=== PATIENT | female | born 1935 | race Caucasian/White ===

== ENCOUNTER 2020-12-21 11:37 | Emergency (ER) | payer MEDICARE, OTHER ==
--- NOTE | 2020-12-21 13:26 | EDM.PDOC ---
ED HPI GENERAL MEDICAL PROBLEM - General Chief Complaint: General Stated Complaint: FALLS, WEAKNESS, TAILBONE PAIN Time Seen by Provider: 12/21/20 11:45 Source of Information: Reports: Patient, Family History Limitations: Reports: No Limitations - History of Present Illness INITIAL COMMENTS - FREE TEXT/NARRATIVE: Pt with several falls over the past few days No LOC Recalls events Complains of pain in tailbone Did hit her head but no COLLAZO currently States her back and ribs hurt but are better now Duration: Day(s):, Intermittent Location: Reports: Pelvis Quality: Reports: Throbbing Buttock Pain Score (Numeric/FACES): 4 - Related Data Allergies Allergy/AdvReac Type Severity Reaction Status Date / Time No Known Allergies Allergy Verified 12/21/20 11:55 Home Meds: Home Meds Losartan Potassium 100 mg PO DAILY@12/21/20 [History] atenoloL [Atenolol] 50 mg PO DAILY@12/21/20 [History] Past Medical History HEENT History: Reports: Hard of Hearing, Impaired Vision, Macular Degeneration Cardiovascular History: Reports: Hypertension Gastrointestinal History: Reports: Chronic Constipation, Diverticulosis Genitourinary History: Reports: UTI, Recurrent Musculoskeletal History: Reports: Fracture, Osteoarthritis, Osteoporosis, Other (See Below) Other Musculoskeletal History: chronic knee pain, bilat wrist fx. Neurological History: Reports: Other (See Below) Other Neuro History: a non-headache migraine. Hematologic History: Reports: Other (See Below) Other Hematologic History: HYPONATREMIA - Past Surgical History HEENT Surgical History: Reports: Cataract Surgery GI Surgical History: Reports: Colostomy Female Surgical History: Reports: Hysterectomy, Other (See Below) Other Female Surgeries/Procedures: bladder repair surgery Social & Family History - Tobacco Use Tobacco Use Status *Q: Never Tobacco User Second Hand Smoke Exposure: No - Caffeine Use Caffeine Use: Reports: Coffee - Recreational Drug Use Recreational Drug Use: No ED ROS GENERAL - Review of Systems Review Of Systems: See Below Constitutional: Reports: Weakness HEENT: Reports: No Symptoms Respiratory: Reports: No Symptoms Cardiovascular: Reports: No Symptoms GI/Abdominal: Reports: No Symptoms Musculoskeletal: Reports: Other (Coccyx pain) Skin: Reports: No Symptoms Neurological: Reports: No Symptoms ED EXAM, GENERAL - Physical Exam Exam: See Below Exam Limited By: No Limitations General Appearance: Alert, WD/WN, Mild Distress Nose: Normal Inspection Throat/Mouth: Normal Oropharynx Head: Atraumatic Neck: Supple, Non-Tender Respiratory/Chest: Lungs Clear Cardiovascular: Regular Rate, Rhythm GI/Abdominal: Soft, Non-Tender Back Exam: Normal Inspection Extremities: Other (Coccyx tender with palpation Spine non-tender) Neurological: Alert, Oriented, No Motor/Sensory Deficits Psychiatric: Normal Affect, Normal Mood Course - Vital Signs Last Recorded V/S: Last Vital Signs Temp 98.7 F 12/21/20 11:38 Pulse 87 12/21/20 11:55 Resp 18 12/21/20 11:55 BP 158/81 H 12/21/20 11:55 Pulse Ox 94 L 12/21/20 11:55 - Orders/Labs/Meds Orders: Active Orders 24 hr Category Date Time Status Head wo Cont [CT] Stat Exams 12/21/20 12:07 Taken Pelvis 1V or 2V [CR] Stat Exams 12/21/20 12:03 Taken Labs: Laboratory Tests 12/21/20 12/21/20 12/21/20 Range/Units 12:17 12:17 12:23 WBC 9.9 (4.0-10.2) K/uL RBC 4.33 (3.77-5.09) M/uL Hgb 12.9 (11.7-15.5) g/dL Hct 38.2 (34.0-46.0) % MCV 88.2 (84.0-98.0) fL MCH 29.8 (28.2-33.3) pg MCHC 33.8 (31.7-36.0) g/dL RDW 13.9 (11.2-14.1) % Plt Count 211 (150-350) K/uL Neut % (Auto) 72.6 (45.0-80.0) % Lymph % (Auto) 17.8 (10.0-50.0) % [place] % (Auto) 9.2 (2.0-14.0) % Eos % (Auto) 0.3 (0.0-5.0) % Baso % (Auto) 0.1 (0.0-2.0) % Neut # (Auto) 7.21 H (1.40-7.00) K/uL Lymph # (Auto) 1.77 (0.50-3.50) K/uL [place] # (Auto) 0.91 (0.00-1.00) K/uL Eos # (Auto) 0.03 (0.00-0.50) K/uL Baso # (Auto) 0.01 (0.00-0.20) K/uL Sodium 136 (136-145) mmol/L Potassium 3.9 (3.5-5.1) mmol/L Chloride 101 (98-107) mmol/L Carbon Dioxide 24.2 (21.0-32.0) mmol/L BUN 18 (7-18) mg/dL Creatinine 0.97 (0.51-1.17) mg/dL Est Cr Clr Drug Dosing 29.90 mL/min Estimated GFR (MDRD) 54 mL/min Glucose 127 H (74-106) mg/dL Calcium 8.6 (8.5-10.1) mg/dL Total Bilirubin 1.3 H (0.2-1.0) mg/dL AST 21 (15-37) U/L ALT 29 (12-78) U/L Alkaline Phosphatase 99 (46-116) IU/L Total Protein 7.0 (6.4-8.2) g/dL Albumin 3.6 (3.4-5.0) g/dL Specimen Type Urinvoid Urine Color Judy Urine Appearance Slightly cloudy Urine pH 7.5 (5.0-9.0) Ur Specific [place] 1.025 (1.005-1.030) Urine Protein Trace H (NEGATIVE) mg/dL Urine Glucose (UA) Negative (NEGATIVE) mg/dL Urine Ketones Negative (NEGATIVE) mg/dL Urine Occult Blood Trace-intact H (NEGATIVE) Urine Nitrite Negative (NEGATIVE) Urine Bilirubin Negative (NEGATIVE) Urine Urobilinogen 0.2 (0.2-1.0) E.U./dL Ur Leukocyte Esterase Trace H (NEGATIVE) Urine RBC 0-5 /HPF Urine WBC 5-10 H /HPF Ur Epithelial Cells Many H /LPF Urine Bacteria Many H (NONE TO FEW) /HPF Urinalysis Comment - Re-Assessments/Exams Free Text/Narrative Re-Assessment/Exam: 12/21/20 13:24 CT per radiologist No acute fndings Xray: No obvious fracture Await report Departure - Departure Time of Disposition: 13:30 Disposition: Home, Self-Care 01 Clinical Impression: Coccyx pain - Discharge Information *PRESCRIPTION DRUG MONITORING PROGRAM REVIEWED*: Not Applicable *COPY OF PRESCRIPTION DRUG MONITORING REPORT IN PATIENT JHONY: Not Applicable Referrals: Sheila Mckeon NP [Primary Care Provider] - Additional Instructions: Cushion to sit on Rx Tramadol 50 mg every 6 hours for pain Follow up in clinic Sepsis Event Note (ED) - Evaluation Sepsis Screening Result: No Definite Risk - Focused Exam Vital Signs: Vital Signs Temp Pulse Resp BP Pulse Ox 12/21/20 11:55 87 18 158/81 H 94 L 12/21/20 11:40 88 16 181/89 H 94 L 12/21/20 11:38 98.7 F 88 18 181/95 H 96 - My Orders Last 24 Hours: My Active Orders 12/21/20 12:03 Pelvis 1V or 2V [CR] Stat 12/21/20 12:07 Head wo Cont [CT] Stat - Assessment/Plan Last 24 Hours: My Active Orders 12/21/20 12:03 Pelvis 1V or 2V [CR] Stat 12/21/20 12:07 Head wo Cont [CT] Stat
== END 2020-12-21 13:40 | disposition home or self-care (01) ==
LOC: LL.ED 11:37
DX: M53.3 Sacrococcygeal disorders, not elsewhere classified (principal); I10 Essential (primary) hypertension; Z79.899 Other long term (current) drug therapy; R53.1 Weakness
CPT/HCPCS: 36415; 70450; 72170; 80053; 81001; 85025; 99283; 99284-25

== ENCOUNTER 2021-06-09 18:35 | Inpatient (IN) | payer MEDICARE, OTHER ==
[2021-06-09] MEDS ORDERED: Sodium Chloride 0.9% 10 ML Syringe FLUSH PRN (18:36)
[2021-06-09 19:09] LABS: CHLORIDE,CL 102 mmol/L (98-107); SODIUM,NA 133 mmol/L (136-145)
[2021-06-09] MEDS ORDERED: Acetaminophen 325 MG Tab PO ONE (19:49)
--- NOTE | 2021-06-09 19:53 | EDM.PDOC ---
ED HPI GENERAL MEDICAL PROBLEM - General Chief Complaint: Neuro Symptoms/Deficits Stated Complaint: stroke code Time Seen by Provider: 06/09/21 18:36 Source of Information: Reports: Patient, EMS, Family History Limitations: Reports: No Limitations - History of Present Illness INITIAL COMMENTS - FREE TEXT/NARRATIVE: Patient brought to ER via EMS after falling for second time in 2 days at home. Found by daughter. Daughter says patient complaining of left sided chest pain and she called EMS. Patient has told daughter she has been dizzy at times the last few days and that the dizziness was different from her usual vertigo spells. Did have both ears cleaned out by ENT earlier this week. Patient complains of left lower anterior rib pain. Daughter says patient laying on left side of chest when daughter came to house after patient pushed her alert button after falling. Patient says she thought she hit her head during one of the two falls and earlier had headache. Denies other acute pain changes. No recent illness/fevers. Only medication change was starting Remeron about 30 days ago. EMS concerned about possible stroke due to patient's tongue deviating slightly t o right and left corner of mouth drooping. They also felt that patient has some asymmetrical limb weakness. Daughter did not notice any obvious changes at the home. No stroke history. No history of GA. Does have CHF. Lives alone at home. Has meals on wheels. Very limited due to sight loss from macular degeneration and hard of hearing. Is looking at moving into 's Home here in [place]. Normal UA this morning when it was rechecked after recent treatment for UTI - Related Data Allergies Allergy/AdvReac Type Severity Reaction Status Date / Time No Known Allergies Allergy Verified 12/21/20 11:55 Home Meds: Home Meds Losartan Potassium 100 mg PO DAILY@12 12/21/20 [History] atenoloL [Atenolol] 50 mg PO DAILY@12/21/20 [History] Mirtazapine [Remeron] 7.5 mg PO BEDTIME 06/09/21 [History] Sulfamethoxazole/Trimethoprim [Sulfamethoxazole-Tmp Ss Tablet] 1 tab PO BEDTIME 06/09/21 [History] Past Medical History HEENT History: Reports: Hard of Hearing, Impaired Vision, Macular Degeneration Cardiovascular History: Reports: Heart Failure, Hypertension Gastrointestinal History: Reports: Chronic Constipation, Diverticulosis Genitourinary History: Reports: UTI, Recurrent Musculoskeletal History: Reports: Fracture, Osteoarthritis, Osteoporosis, Other (See Below) Other Musculoskeletal History: chronic knee pain, bilat wrist fx. Neurological History: Reports: Other (See Below) Other Neuro History: a non-headache migraine. Hematologic History: Reports: Other (See Below) Other Hematologic History: HYPONATREMIA - Past Surgical History HEENT Surgical History: Reports: Cataract Surgery GI Surgical History: Reports: Colostomy Female Surgical History: Reports: Hysterectomy, Other (See Below) Other Female Surgeries/Procedures: bladder repair surgery Social & Family History - Caffeine Use Caffeine Use: Reports: Coffee ED ROS GENERAL - Review of Systems Review Of Systems: Comprehensive ROS is negative, except as noted in HPI. ED EXAM, GENERAL - Physical Exam Exam: See Below Exam Limited By: No Limitations General Appearance: Alert, WD/WN Eye Exam: Bilateral Eye: EOMI, PERRL, Other (no obvious nystagmus) Ears: Hearing Loss, Other (Small ear canals bilaterally/unremarkable. ) Nose: No: Nasal Deformity, Nasal Swelling, Nasal Drainage Throat/Mouth: Normal Voice, No Airway Compromise Head: Atraumatic, Normocephalic. No: Facial Swelling, Facial Tenderness Neck: Supple, Non-Tender, Full Range of Motion Respiratory/Chest: No Respiratory Distress, Crackles (at bases and mid right lung), Other (Tender with palpation lower left rib area. No crepitus/obvious fracture/bruising). No: Rhonchi, Wheezing, Stridor, Accessory Muscle Use Cardiovascular: Regular Rate, Rhythm, No Edema, No Murmur GI/Abdominal: Soft, Non-Tender, No Distention, Abnormal Bowel Sounds (diminished throughout) (Female) Exam: Deferred Rectal (Female) Exam: Deferred Back Exam: No: CVA Tenderness (L), CVA Tenderness (R), Muscle Spasm, Paraspinal Tenderness, Vertebral Tenderness Extremities: Normal Range of Motion (for age), Non-Tender, No Pedal Edema, Normal Capillary Refill Neurological: Alert, Oriented (except for the year), Normal Cognition, No Motor/Sensory Deficits, Other (Equal tone/strength bilateral limbs. Small droop left corner of mouth. ) Psychiatric: Normal Affect, Normal Mood Skin Exam: Warm, Dry, Intact, Normal Color #1 Interpretation EKG Date: 06/09/21 Time: 18:56 Rhythm: NSR Rate (Beats/Min): 71 [place]: Normal P-Wave: Present QRS: Normal ST-T: Normal QT: Normal Comparison: NA - No Prior EKG Course - Orders/Labs/Meds Orders: Active Orders 24 hr Category Date Time Status EKG Documentation Completion [RC] ASDIRECTED Care 06/09/21 18:38 Active Chest 1V Frontal [CR] Stat Exams 06/09/21 18:37 Taken Head wo Cont [CT] Stat Exams 06/09/21 18:38 Taken UA W/MICROSCOPIC [URIN] Stat Lab 06/09/21 18:36 Ordered Sodium Chloride 0.9% [Saline Flush] Med 06/09/21 18:36 Active 10 ml FLUSH ASDIRECTED PRN Saline Lock Insert [OM.PC] Stat Oth 06/09/21 18:37 Ordered Medication Orders Sodium Chloride (Sodium Chloride 0.9% 10 Ml Syringe) 10 ml FLUSH ASDIRECTED PRN PRN Reason: Keep Vein Open Labs: Laboratory Tests 06/09/21 06/09/21 06/09/21 Range/Units 18:35 18:50 18:50 WBC 11.4 H (4.0-10.2) K/uL RBC 4.86 (3.77-5.09) M/uL Hgb 14.7 D (11.7-15.5) g/dL Hct 42.9 (34.0-46.0) % MCV 88.3 (84.0-98.0) fL MCH 30.2 (28.2-33.3) pg MCHC 34.3 (31.7-36.0) g/dL RDW 13.8 (11.2-14.1) % Plt Count 249 (150-350) K/uL Neut % (Auto) 55.1 (45.0-80.0) % Lymph % (Auto) 37.1 (10.0-50.0) % [place] % (Auto) 6.0 (2.0-14.0) % Eos % (Auto) 1.5 (0.0-5.0) % Baso % (Auto) 0.3 (0.0-2.0) % Neut # (Auto) 6.29 (1.40-7.00) K/uL Lymph # (Auto) 4.24 H (0.50-3.50) K/uL [place] # (Auto) 0.69 (0.00-1.00) K/uL Eos # (Auto) 0.17 (0.00-0.50) K/uL Baso # (Auto) 0.04 (0.00-0.20) K/uL PT 9.8 (9.5-12.0) SEC INR 1.0 D-Dimer, Quantitative > 5000 H (0-400) ng/mL Sodium (136-145) mmol/L Potassium (3.5-5.1) mmol/L Chloride (98-107) mmol/L Carbon Dioxide (21.0-32.0) mmol/L Anion Gap (7-15) meq/L BUN (7-18) mg/dL Creatinine (0.51-1.17) mg/dL Est Cr Clr Drug Dosing Estimated GFR (MDRD) mL/min Glucose (70-99) mg/dL Lactic Acid (0.4-2.0) mmol/L Calcium (8.5-10.1) mg/dL Magnesium (1.8-2.4) mg/dL Total Bilirubin (0.2-1.0) mg/dL AST (15-37) U/L ALT (12-78) U/L Alkaline Phosphatase (46-116) IU/L Creatine Kinase (26-308) U/L Troponin I High Sens (<=51) ng/L NT-Pro-B Natriuret Pep (0-125) pg/mL Total Protein (6.4-8.2) g/dL Albumin (3.4-5.0) g/dL 06/09/21 06/09/21 06/09/21 Range/Units 18:50 18:50 18:50 WBC (4.0-10.2) K/uL RBC (3.77-5.09) M/uL Hgb (11.7-15.5) g/dL Hct (34.0-46.0) % MCV (84.0-98.0) fL MCH (28.2-33.3) pg MCHC (31.7-36.0) g/dL RDW (11.2-14.1) % Plt Count (150-350) K/uL Neut % (Auto) (45.0-80.0) % Lymph % (Auto) (10.0-50.0) % [place] % (Auto) (2.0-14.0) % Eos % (Auto) (0.0-5.0) % Baso % (Auto) (0.0-2.0) % Neut # (Auto) (1.40-7.00) K/uL Lymph # (Auto) (0.50-3.50) K/uL [place] # (Auto) (0.00-1.00) K/uL Eos # (Auto) (0.00-0.50) K/uL Baso # (Auto) (0.00-0.20) K/uL PT (9.5-12.0) SEC INR D-Dimer, Quantitative (0-400) ng/mL Sodium 133 L (136-145) mmol/L Potassium 4.7 (3.5-5.1) mmol/L Chloride 102 (98-107) mmol/L Carbon Dioxide 22.7 (21.0-32.0) mmol/L Anion Gap 13.0 (7-15) meq/L BUN 25 H (7-18) mg/dL Creatinine 1.40 H (0.51-1.17) mg/dL Est Cr Clr Drug Dosing TNP Estimated GFR (MDRD) 36 mL/min Glucose 114 H (70-99) mg/dL Lactic Acid 1.6 (0.4-2.0) mmol/L Calcium 8.8 (8.5-10.1) mg/dL Magnesium 2.2 (1.8-2.4) mg/dL Total Bilirubin 0.5 (0.2-1.0) mg/dL AST 25 (15-37) U/L ALT 29 (12-78) U/L Alkaline Phosphatase 107 (46-116) IU/L Creatine Kinase 85 (26-308) U/L Troponin I High Sens 7 (<=51) ng/L NT-Pro-B Natriuret Pep 234 H (0-125) pg/mL Total Protein 7.6 (6.4-8.2) g/dL Albumin 3.7 (3.4-5.0) g/dL Meds: Medications Generic Name Dose Route Start Last Admin Trade Name Freq PRN Reason Stop Dose Admin Sodium Chloride 10 ml 08/06/21 18:36 Sodium Chloride 0.9% 10 Ml Syringe FLUSH ASDIRECTED PRN Keep Vein Open - Re-Assessments/Exams Free Text/Narrative Re-Assessment/Exam: 06/09/21 20:[address] showed generalized degenerative changes/small vessel disease but no acute bleed/change. Chest xray showed what appeared to by CHF/fibrosis but no acute infiltrate. Multiple old fractures noted left upper ribs/patient and daughter say these are old. No tenderness when palpated in this area. Difficult to assess lower ribs for acute fracture due to positioning and osteopenia. Ddimer greater than 5000 Normal troponin. Minimal elevation proBNP. NA 133/patient has history hyponatremia. Cr 1.4 Stroke code downgraded after exam/interview with patient and daughter. NIH stroke scale normal but patient unable to do visual portion of test due to her very poor vision from macular degeneration. Only change at this time might be the small left sided droop corner of mouth but daughter is not convinced that is new. Daughter does not feel patient is exhibiting stroke symptoms. It seems main issue is dizziness over last few days and subsequent falls. Patient sat up and had sudden worsening of dizziness which led to vomiting. We discussed the DDimer elevation and relationship to possible PE. PE is a potential cause for dizziness. Patient and daughter did not want to be sent to [facility] for VQ scan. Plan at this time is to admit for further evaluation/workup. Departure - Departure Time of Disposition: 20:13 Disposition: Admitted As Inpatient 65 Clinical Impression: Dizziness, Repeated falls, Elevated d-dimer - Discharge Information *PRESCRIPTION DRUG MONITORING PROGRAM REVIEWED*: Not Applicable *COPY OF PRESCRIPTION DRUG MONITORING REPORT IN PATIENT JHONY: Not Applicable Referrals: PCP,Unobtain [Primary Care Provider] - - Problem List & Annotations (1) Dizziness SNOMED Code(s): 680860908, 668517223 Code(s): R42 - DIZZINESS AND GIDDINESS Status: Acute Priority: High Current Visit: Yes Annotation/Comment:: Patient says this is a new kind of dizziness and that it has been present for several days. Denies hitting head prior to developing dizziness. Did start Remeron 30 days ago which has dizziness as side effect. Had both ears irrigated and cleaned out by ENT earlier this week. This may be contributor to the dizzness. 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 No exudate/swelling suggestive of OE noted during exam. Also has possible new left sided mouth mild droop. CT unremarkable but cannot rule out small stroke that may be linked with the dizziness/falls. Consider MRI Saturday for more thorough evaluation. (2) Elevated d-dimer SNOMED Code(s): 000638165 Code(s): R79.89 - OTHER SPECIFIED ABNORMAL FINDINGS OF BLOOD CHEMISTRY Status: Acute Priority: High Current Visit: Yes Annotation/Comment:: Greater than 5000. Patient and daughter would like patient to stay here in [place] and see if we can get CT of chest performed tomorrow to assess for PE and also new rib fractures. Consider transfer to [place] if renal function worsens and need to consider VQ scan. Patient's respiratory rate/O2 sats stable. No complaint of SOB. (3) Repeated falls SNOMED Code(s): 117550016 Code(s): R29.6 - REPEATED FALLS Status: Acute Priority: High Current Visit: Yes Annotation/Comment:: Has history of previous falls. Has fallen yesterday and today due to dizziness and patient says the dizziness is a "new" kind of dizziness. (4) Renal insufficiency SNOMED Code(s): 576716024, 734372228 Code(s): N28.9 - DISORDER OF KIDNEY AND URETER, UNSPECIFIED Status: Acute Priority: Medium Current Visit: Yes Annotation/Comment:: Cr of 1.4 Will assess for improvement after IV fluids overnight as plan is to perform CT scan of chest for formal PE rule out tomorrow unless Cr/GFR worsen. (5) HTN (hypertension) SNOMED Code(s): 53344925 Code(s): I10 - ESSENTIAL (PRIMARY) HYPERTENSION Status: Chronic Priority: Medium Current Visit: Yes Annotation/Comment:: observe trends. Elevated in ER Qualifiers: Hypertension type: primary hypertension Qualified Code(s): I10 - Essential (primary) hypertension (6) Osteoporosis SNOMED Code(s): 25011898 Code(s): M81.0 - AGE-RELATED OSTEOPOROSIS W/O CURRENT PATHOLOGICAL FRACTURE Status: Chronic Priority: Medium Current Visit: Yes Annotation/Comment:: Hx previous rib fractures. Has some new tenderness left lower ribs. Closer look will be obtained tomorrow with planned CT scan of chest. Qualifiers: Osteoporosis type: unspecified Presence of current pathological fracture: unspecified Qualified Code(s): M81.0 - Age-related osteoporosis without current pathological fracture (7) Osteoarthritis SNOMED Code(s): 096666943 Code(s): M19.90 - UNSPECIFIED OSTEOARTHRITIS, UNSPECIFIED SITE Status: Chronic Priority: Low Current Visit: Yes Annotation/Comment:: Stable per history Qualifiers: Osteoarthritis location: unspecified site Osteoarthritis type: unspecified Qualified Code(s): M19.90 - Unspecified osteoarthritis, unspecified site (8) Recurrent UTI SNOMED Code(s): 059960640 Code(s): N39.0 - URINARY TRACT INFECTION, SITE NOT SPECIFIED Status: Acute Priority: Low Current Visit: Yes Annotation/Comment:: Is on daily Bactrim. Normal UA at clinic today. (9) Hyponatremia SNOMED Code(s): 66860857 Code(s): E87.1 - HYPO-OSMOLALITY AND HYPONATREMIA Status: Acute Priority: Low Current Visit: Yes Annotation/Comment:: Na 133 (10) Hard of hearing SNOMED Code(s): 69640391 Code(s): H91.90 - UNSPECIFIED HEARING LOSS, UNSPECIFIED EAR Status: Chronic Priority: Low Current Visit: No Annotation/Comment:: hearing aids Qualifiers: Hearing loss type: unspecified Laterality: bilateral Qualified Code(s): H91.93 - Unspecified hearing loss, bilateral (11) Macular degeneration SNOMED Code(s): 487753896 Code(s): H35.30 - UNSPECIFIED MACULAR DEGENERATION Status: Chronic Priority: Low Current Visit: Yes Annotation/Comment:: Has lost most of vision Qualifiers: Macular degeneration type: unspecified type Eye laterality: bilateral Qualified Code(s): H35.30 - Unspecified macular degeneration (12) CHF (congestive heart failure) SNOMED Code(s): 91760461 Code(s): I50.9 - HEART FAILURE, UNSPECIFIED Status: Chronic Priority: Low Current Visit: Yes Annotation/Comment:: Mild elevation of BNP. No evidence of acute fluid overload on exam. Qualifiers: Heart failure type: unspecified Heart failure chronicity: chronic Qualified Code(s): I50.9 - Heart failure, unspecified - Problem List Review Problem List Initiated/Reviewed/Updated: Yes - My Orders Last 24 Hours: My Active Orders 06/09/21 18:36 UA W/MICROSCOPIC [URIN] Stat Sodium Chloride 0.9% [Saline Flush] 10 ml FLUSH ASDIRECTED PRN 06/09/21 18:37 Chest 1V Frontal [CR] Stat Saline Lock Insert [OM.PC] Stat 06/09/21 18:38 EKG Documentation Completion [RC] ASDIRECTED Head wo Cont [CT] Stat - Assessment/Plan Admission H&P: Please use this note as an admission H&P Last 24 Hours: My Active Orders 06/09/21 18:36 UA W/MICROSCOPIC [URIN] Stat Sodium Chloride 0.9% [Saline Flush] 10 ml FLUSH ASDIRECTED PRN 06/09/21 18:37 Chest 1V Frontal [CR] Stat Saline Lock Insert [OM.PC] Stat 06/09/21 18:38 EKG Documentation Completion [RC] ASDIRECTED Head wo Cont [CT] Stat Assessment:: as above Plan: Current plan is to hydrate patient with goal of achieving some improvement of GFR so that she can undergo CT scan tomorrow for further evaluation of elevated DDimer to r/o PE and also get closer look at ribs. Monitor BP trends and continue to assess dizziness complaint and ability of patient to perform ADLs safely. She is currently unable to sit up and move around without increased dizziness/nausea/emesis. Have PT/OT evaluate patient on Saturday (tomorrow is Saturday and they are not available on weekends). Consider MRI on Saturday when truck is here to further evaluate for possible small stroke that could have contributed to the new dizziness. Again, patient does not wish to be transferred to [place] at this time but will consider it if unable to undergo CT of chest tomorrow. Anticipate 3-4 day stay depending upon clinical course. May need to consider Swing Bed care if patient unable to perform ADLs safely.
[2021-06-09] MEDS ORDERED: Ondansetron 4 MG/2 ML SDV IVPUSH ONE (20:02)
[2021-06-09] MEDS ORDERED: Sodium Chloride 0.9% 1,000 ML IV SCH (20:30)
[2021-06-09] MEDS ORDERED: Acetaminophen 650 MG Supp RECTAL PRN (20:37)
[2021-06-09] MEDS ORDERED: Ondansetron 4 MG/2 ML SDV IVPUSH PRN (20:37)
[2021-06-09] MEDS ORDERED: Bisacodyl 5 MG Tab PO PRN (20:37)
[2021-06-09] MEDS ORDERED: Meclizine 25 MG Tab PO SCH (20:45)
[2021-06-10] MEDS ORDERED: hydrALAZINE 10 MG Tab PO ONE (00:31)
[2021-06-10] MEDS: Meclizine 25 MG Tab PO SCH ×2 (07:41→15:17)
[2021-06-10] MEDS: Enoxaparin 30 MG/0.3 ML Syringe SUBCUT SCH (07:41)
[2021-06-10 08:02] LABS: ANION GAP 9.8 meq/L (7-15)
[2021-06-10] MEDS ORDERED: Iopamidol 755 Mg/ML 100 ML Bottle ONE (09:53)
[2021-06-10] MEDS ORDERED: Iopamidol 755 Mg/ML 100 ML Bottle IVPUSH STA (10:45)
[2021-06-10] MEDS: Losartan 50 MG Tab PO SCH (11:36)
[2021-06-10] MEDS: Atenolol 50 MG Tab PO SCH (11:36)
[2021-06-10] MEDS: Acetaminophen 325 MG Tab PO PRN ×2 (11:37→17:24)
[2021-06-10] MEDS: Polyvinyl Alcohol 1.4% Ophth Soln 15 ML Bottle EYEBOTH PRN (12:20)
[2021-06-10] MEDS: Sennosides 8.6 MG Tab PO PRN (12:20)
[2021-06-10] MEDS: Doxycycline Monohydrate 100 MG Cap PO SCH (17:24)
[2021-06-10] MEDS: cefTRIAXone 1 GM in Sodium Chloride 0.9% 100 ML IV SCH (17:24)
[2021-06-10] MEDS: Mirtazapine 15 MG Tab PO SCH (20:19)
[2021-06-10] MEDS: Sulfamethoxazole/Trimethoprim 800-160 MG Tab PO SCH (20:19)
--- NOTE | 2021-06-10 22:46 | PCM.PN ---
- General Info Date of Service: 06/10/21 Admission Dx/Problem (Free Text): Pt. admitted with global weakness, vertigo, and hypoxia. Nursing relates that pt. is improving. She was able to feed herself breakfast, and ate her entire meal. She has been up ambulating to the bathroom but her O2 saturation has been decreasing into the mid 80% range with activity. She continues to have some crackles in the bases of her lungs, and there is a question if the patient may be aspirating when she eats. Pt. is no longer experiencing any focal/unilateral weakness. She was quite hypertensive, but this has been managed with hydralazine. Blood pressure has been under good control. Tmax since admission was 37.1. CTA of the patient's chest was performed, after she was sufficiently hydrated overnight. There was not evidence of PE. She does have some bibasilar atelectasis, but no obvious infiltrate. Functional Status: Reports: Pain Controlled - Review of Systems General: Reports: Weakness HEENT: Reports: No Symptoms Pulmonary: Reports: Shortness of Breath (increased with activity) Cardiovascular: Reports: No Symptoms Gastrointestinal: Reports: No Symptoms Genitourinary: Reports: No Symptoms Musculoskeletal: Reports: No Symptoms Skin: Reports: No Symptoms Neurological: Reports: Dizziness (has improved since admission), Weakness. Denies: Confusion Psychiatric: Reports: No Symptoms - Patient Data Vitals - Most Recent: Last Vital Signs Temp 37.2 C 06/10/21 16:57 Pulse 57 L 06/10/21 16:57 Resp 20 06/10/21 16:57 BP 145/60 H 06/10/21 16:57 Pulse Ox 95 06/10/21 16:57 Weight - Most Recent: 67.132 kg I&O - Last 24 Hours: Intake & Output 06/10/21 06/10/21 06/10/21 06:59 14:59 22:59 Intake Total 1440 620 Output Total 700 650 Balance -700 790 620 Lab Results Last 24 Hours: Laboratory Results - last 24 hr 06/09/21 06/10/21 06/10/21 Range/Units 22:00 07:30 07:30 WBC 8.2 (4.0-10.2) K/uL RBC 4.45 (3.77-5.09) M/uL Hgb 13.4 (11.7-15.5) g/dL Hct 39.6 (34.0-46.0) % MCV 89.0 (84.0-98.0) fL MCH 30.1 (28.2-33.3) pg MCHC 33.8 (31.7-36.0) g/dL RDW 13.9 (11.2-14.1) % Plt Count 211 (150-350) K/uL Neut % (Auto) 68.2 (45.0-80.0) % Lymph % (Auto) 21.8 (10.0-50.0) % Becker % (Auto) 8.9 (2.0-14.0) % Eos % (Auto) 1.0 (0.0-5.0) % Baso % (Auto) 0.1 (0.0-2.0) % Neut # (Auto) 5.59 (1.40-7.00) K/uL Lymph # (Auto) 1.79 (0.50-3.50) K/uL Becker # (Auto) 0.73 (0.00-1.00) K/uL Eos # (Auto) 0.08 (0.00-0.50) K/uL Baso # (Auto) 0.01 (0.00-0.20) K/uL Sodium 135 L (136-145) mmol/L Potassium 4.2 (3.5-5.1) mmol/L Chloride 104 (98-107) mmol/L Carbon Dioxide 25.4 (21.0-32.0) mmol/L Anion Gap 9.8 (7-15) meq/L BUN 16 (7-18) mg/dL Creatinine 1.06 (0.51-1.17) mg/dL Est Cr Clr Drug Dosing 27.36 mL/min Estimated GFR (MDRD) 49 mL/min Glucose 121 H (70-99) mg/dL Calcium 8.2 L (8.5-10.1) mg/dL Specimen Type Urinvoid Urine Color Yellow Urine Appearance Clear Urine pH 6.0 (5.0-9.0) Ur Specific [place] 1.025 (1.005-1.030) Urine Protein Negative (NEGATIVE) mg/dL Urine Glucose (UA) Negative (NEGATIVE) mg/dL Urine Ketones Negative (NEGATIVE) mg/dL Urine Occult Blood Trace-intact H (NEGATIVE) Urine Nitrite Negative (NEGATIVE) Urine Bilirubin Negative (NEGATIVE) Urine Urobilinogen 0.2 (0.2-1.0) E.U./dL Ur Leukocyte Esterase Negative (NEGATIVE) Urine RBC 0-5 /HPF Urine WBC 5-10 H /HPF Ur Epithelial Cells Few /LPF Urine Bacteria Moderate H (NONE TO FEW) /HPF Med Orders - Current: Current Medications Acetaminophen (Acetaminophen 650 Mg Supp) 650 mg RECTAL Q4H PRN PRN Reason: Pain (mild 1-3) Acetaminophen (Acetaminophen 325 Mg Tab) 650 mg PO Q4H PRN PRN Reason: Pain (Mild 1-3)/fever Last Admin: 06/10/21 17:24 Dose: 650 mg Documented by: Artificial Tears (Polyvinyl Alcohol 1.4% Ophth Soln 15 Ml Bottle) 0 ml EYEBOTH Q1H PRN PRN Reason: Dry Eyes Last Admin: 06/10/21 12:20 Dose: 2 drop Documented by: Atenolol (Atenolol 50 Mg Tab) 50 mg PO DAILY@12 [facility] Last Admin: 06/10/21 11:36 Dose: 50 mg Documented by: Bisacodyl (Bisacodyl 5 Mg Tab) 5 mg PO DAILY PRN PRN Reason: Constipation Doxycycline Monohydrate (Doxycycline Monohydrate 100 Mg Cap) 100 mg PO BID [facility] Last Admin: 06/10/21 17:24 Dose: 100 mg Documented by: Enoxaparin Sodium (Enoxaparin 30 Mg/0.3 Ml Syringe) 30 mg SUBCUT DAILY [facility] Last Admin: 06/10/21 07:41 Dose: 30 mg Documented by: Ceftriaxone Sodium 1 gm/ (Sodium Chloride) 100 mls @ 200 mls/hr IV Q24H [facility] Last Admin: 06/10/21 17:24 Dose: 200 mls/hr Documented by: Losartan Potassium (Losartan 50 Mg Tab) 100 mg PO DAILY@12 [facility] Last Admin: 06/10/21 11:36 Dose: 100 mg Documented by: Meclizine HCl (Meclizine 25 Mg Tab) 25 mg PO Q8HR [facility] Last Admin: 06/10/21 15:17 Dose: 25 mg Documented by: Mirtazapine (Mirtazapine 15 Mg Tab) 7.5 mg PO BEDTIME [facility] Last Admin: 06/10/21 20:19 Dose: 7.5 mg Documented by: Ondansetron HCl (Ondansetron 4 Mg/2 Ml Sdv) 4 mg IVPUSH Q6H PRN PRN Reason: Nausea/Vomiting Senna (Sennosides 8.6 Mg Tab) 8.6 mg PO BID PRN PRN Reason: Constipation Last Admin: 06/10/21 12:20 Dose: 8.6 mg Documented by: Trimethoprim/Sulfamethoxazole (Sulfamethoxazole/Trimethoprim 800-160 Mg Tab) 0.5 tab PO BEDTIME [facility] Last Admin: 06/10/21 20:19 Dose: 0.5 tab Documented by: Discontinued Medications Acetaminophen (Acetaminophen 325 Mg Tab) 650 mg PO NOW ONE Stop: 06/09/21 19:50 Last Admin: 06/09/21 23:47 Dose: 650 mg Documented by: Hydralazine HCl (Hydralazine 10 Mg Tab) 10 mg PO ONETIME ONE Stop: 06/10/21 00:32 Last Admin: 06/10/21 01:10 Dose: 10 mg Documented by: Sodium Chloride (Normal Saline) 1,000 mls @ 75 mls/hr IV ASDIRECTED [facility] Last Admin: 06/09/21 20:38 Dose: 75 mls/hr Documented by: Iopamidol (Iopamidol 755 Mg/Ml 100 Ml Bottle) Confirm Administered Dose 100 ml .ROUTE .STK-MED ONE Stop: 06/10/21 09:54 Iopamidol (Iopamidol 755 Mg/Ml 100 Ml Bottle) 100 ml IVPUSH ONETIME STA Stop: 06/10/21 10:46 Last Admin: 06/10/21 11:10 Dose: 100 ml Documented by: Meclizine HCl (Meclizine 25 Mg Tab) 25 mg PO Q8H [facility] Last Admin: 06/09/21 23:45 Dose: 25 mg Documented by: Ondansetron HCl (Ondansetron 4 Mg/2 Ml Sdv) 4 mg IVPUSH ONETIME ONE Stop: 06/09/21 20:03 Last Admin: 06/09/21 20:38 Dose: 4 mg Documented by: Sodium Chloride (Sodium Chloride 0.9% 10 Ml Syringe) 10 ml FLUSH ASDIRECTED PRN PRN Reason: Keep Vein Open - Exam Urinary Catheter Total Time: 0Days 21Hours General: Alert, Oriented Lungs: Decreased Breath Sounds, Crackles Cardiovascular: Regular Rate, Regular Rhythm GI/Abdominal Exam: Normal Bowel Sounds, Soft, Non-Tender, No Distention, No Mass Back Exam: Normal Inspection, Full Range of Motion Extremities: Normal Inspection, Normal Range of Motion, Normal Capillary Refill Peripheral Pulses: 4+: Radial (R) Skin: Warm, Dry, Intact Neurological: No New Focal Deficit Psy/Mental Status: Alert, Normal Affect, Normal Mood - Patient Data Lab Results Last 24 hrs: Laboratory Results - last 24 hr 06/09/21 06/10/21 06/10/21 Range/Units 22:00 07:30 07:30 WBC 8.2 (4.0-10.2) K/uL RBC 4.45 (3.77-5.09) M/uL Hgb 13.4 (11.7-15.5) g/dL Hct 39.6 (34.0-46.0) % MCV 89.0 (84.0-98.0) fL MCH 30.1 (28.2-33.3) pg MCHC 33.8 (31.7-36.0) g/dL RDW 13.9 (11.2-14.1) % Plt Count 211 (150-350) K/uL Neut % (Auto) 68.2 (45.0-80.0) % Lymph % (Auto) 21.8 (10.0-50.0) % Becker % (Auto) 8.9 (2.0-14.0) % Eos % (Auto) 1.0 (0.0-5.0) % Baso % (Auto) 0.1 (0.0-2.0) % Neut # (Auto) 5.59 (1.40-7.00) K/uL Lymph # (Auto) 1.79 (0.50-3.50) K/uL Becker # (Auto) 0.73 (0.00-1.00) K/uL Eos # (Auto) 0.08 (0.00-0.50) K/uL Baso # (Auto) 0.01 (0.00-0.20) K/uL Sodium 135 L (136-145) mmol/L Potassium 4.2 (3.5-5.1) mmol/L Chloride 104 (98-107) mmol/L Carbon Dioxide 25.4 (21.0-32.0) mmol/L Anion Gap 9.8 (7-15) meq/L BUN 16 (7-18) mg/dL Creatinine 1.06 (0.51-1.17) mg/dL Est Cr Clr Drug Dosing 27.36 mL/min Estimated GFR (MDRD) 49 mL/min Glucose 121 H (70-99) mg/dL Calcium 8.2 L (8.5-10.1) mg/dL Specimen Type Urinvoid Urine Color Yellow Urine Appearance Clear Urine pH 6.0 (5.0-9.0) Ur Specific [place] 1.025 (1.005-1.030) Urine Protein Negative (NEGATIVE) mg/dL Urine Glucose (UA) Negative (NEGATIVE) mg/dL Urine Ketones Negative (NEGATIVE) mg/dL Urine Occult Blood Trace-intact H (NEGATIVE) Urine Nitrite Negative (NEGATIVE) Urine Bilirubin Negative (NEGATIVE) Urine Urobilinogen 0.2 (0.2-1.0) E.U./dL Ur Leukocyte Esterase Negative (NEGATIVE) Urine RBC 0-5 /HPF Urine WBC 5-10 H /HPF Ur Epithelial Cells Few /LPF Urine Bacteria Moderate H (NONE TO FEW) /HPF Result Diagrams: 06/10/21 07:30 06/10/21 07:30 Sepsis Event Note - Evaluation Sepsis Screening Result: No Definite Risk - Focused Exam Vital Signs: Vital Signs Temp Pulse Pulse Resp BP BP Pulse Ox 06/10/21 16:57 37.2 C 57 L 20 145/60 H 95 06/10/21 11:36 77 157/68 H 06/10/21 11:33 37.1 C 77 17 157/68 H 94 L - Problem List Review Problem List Initiated/Reviewed/Updated: Yes - My Orders Last 24 Hours: My Active Orders 06/10/21 11:02 Ambulate [RC] PER UNIT ROUTINE 06/10/21 11:57 Polyvinyl Alcohol [LiquiTears 1.4% Ophth Soln] 0 ml EYEBOTH Q1H PRN 06/10/21 17:00 cefTRIAXone [Rocephin] 1 gm Sodium Chloride 0.9% [Normal Saline] 100 ml IV Q24H 06/10/21 18:00 Doxycycline Monohydrate 100 mg PO BID - Plan Plan:: Discontinue IV fluids. Pt. has been consuming adequate amount of fluid. Will start IV rocephin and oral doxycycline. She does have some atelectasis in the lung bases. PT and OT to see on Saturday. PT for ambulation/strengthening and also to assess for vestibular cause of vertigo. I would like her to have a swallow study done by speech as well. Encouraged patient to ambulate with assistance of nursing as much as possible. CBC, BMP in AM.
[2021-06-11] MEDS: Meclizine 25 MG Tab PO SCH ×4 (00:32→22:59)
[2021-06-11] MEDS: Enoxaparin 30 MG/0.3 ML Syringe SUBCUT SCH (08:00)
[2021-06-11] MEDS: Doxycycline Monohydrate 100 MG Cap PO SCH ×2 (08:01→17:51)
[2021-06-11 08:08] LABS: CHLORIDE,CL 103 mmol/L (98-107); SODIUM,NA 134 mmol/L (136-145)
[2021-06-11 08:10] LABS: ANION GAP 10.1 meq/L (7-15)
--- NOTE | 2021-06-11 10:50 | PCM.PN ---
- General Info Date of Service: 06/11/21 Subjective Update: Pt. had a good night. She states that she is feeling better. pt. is still experiencing dizziness when changing positions, and especially when standing. She has been ambulating in her room. She is also quite short of breath and her O2 sat dips into the mid 80% range when ambulating. blood pressure has been slowly increasing. Last BP 168 systolic, with on syst olic BP greater than 200 overnight. Pt. denies any chest pain. No jaw, arm, neck or back pain. She feels her breathing has overall improved since yesterday. At that time, she was found to have some bibasilar atelectasis without obvious infiltrate and was started on IV rocephin and doxycycline which will be continued. She states that she is coughing up some mucus, but swallows it and has not looked at the color of consistency. She ate her full breakfast this AM without difficulty. No reports of nausea or vomiting. Denies any diarrhea. No abdominal discomfort. Pt. has been alert, oriented and answering all questions posed by staff. She is not experiencing any unilateral extremity weakness, problems with speech, or other focal neuro findings. Functional Status: Reports: Pain Controlled, Tolerating Diet, Ambulating, Incentive Spirometry - Review of Systems General: Reports: No Symptoms HEENT: Reports: No Symptoms Pulmonary: Reports: Shortness of Breath (particularly with exertion) Cardiovascular: Reports: No Symptoms Gastrointestinal: Reports: Difficulty Swallowing (frequently coughs after swallowing water/food.) Genitourinary: Reports: No Symptoms Musculoskeletal: Reports: No Symptoms Skin: Reports: No Symptoms Neurological: Reports: Dizziness (when changing positions/especially when standing) Psychiatric: Reports: No Symptoms - Patient Data Vitals - Most Recent: Last Vital Signs Temp 37.2 C 06/11/21 08:23 Pulse 78 06/11/21 08:23 Resp 18 06/11/21 08:23 BP 168/72 H 06/11/21 08:23 Pulse Ox 94 L 06/11/21 08:23 Weight - Most Recent: 67.132 kg I&O - Last 24 Hours: Intake & Output 06/10/21 06/11/21 06/11/21 22:59 06:59 14:59 Intake Total 620 360 Output Total 1100 Balance 620 -1100 360 Lab Results Last 24 Hours: Laboratory Results - last 24 hr 06/11/21 06/11/21 06/11/21 Range/Units 07:30 07:30 07:30 WBC 8.2 (4.0-10.2) K/uL RBC 4.60 (3.77-5.09) M/uL Hgb 13.9 (11.7-15.5) g/dL Hct 41.1 (34.0-46.0) % MCV 89.3 (84.0-98.0) fL MCH 30.2 (28.2-33.3) pg MCHC 33.8 (31.7-36.0) g/dL RDW 13.9 (11.2-14.1) % Plt Count 205 (150-350) K/uL Neut % (Auto) 67.1 (45.0-80.0) % Lymph % (Auto) 21.7 (10.0-50.0) % Love % (Auto) 8.8 (2.0-14.0) % Eos % (Auto) 2.2 (0.0-5.0) % Baso % (Auto) 0.2 (0.0-2.0) % Neut # (Auto) 5.51 (1.40-7.00) K/uL Lymph # (Auto) 1.78 (0.50-3.50) K/uL Love # (Auto) 0.72 (0.00-1.00) K/uL Eos # (Auto) 0.18 (0.00-0.50) K/uL Baso # (Auto) 0.02 (0.00-0.20) K/uL Sodium 134 L (136-145) mmol/L Potassium 4.2 (3.5-5.1) mmol/L Chloride 103 (98-107) mmol/L Carbon Dioxide 25.1 (21.0-32.0) mmol/L Anion Gap 10.1 (7-15) meq/L BUN 12 (7-18) mg/dL Creatinine 0.89 (0.51-1.17) mg/dL Est Cr Clr Drug Dosing 32.59 mL/min Estimated GFR (MDRD) > 60 mL/min Glucose 115 H (70-99) mg/dL Lactic Acid 1.2 (0.4-2.0) mmol/L Calcium 8.5 (8.5-10.1) mg/dL Phosphorus 3.1 (2.6-4.7) mg/dL Magnesium 2.0 (1.8-2.4) mg/dL Med Orders - Current: Current Medications Acetaminophen (Acetaminophen 650 Mg Supp) 650 mg RECTAL Q4H PRN PRN Reason: Pain (mild 1-3) Acetaminophen (Acetaminophen 325 Mg Tab) 650 mg PO Q4H PRN PRN Reason: Pain (Mild 1-3)/fever Last Admin: 06/10/21 17:24 Dose: 650 mg Documented by: Artificial Tears (Polyvinyl Alcohol 1.4% Ophth Soln 15 Ml Bottle) 0 ml EYEBOTH Q1H PRN PRN Reason: Dry Eyes Last Admin: 06/10/21 12:20 Dose: 2 drop Documented by: Atenolol (Atenolol 50 Mg Tab) 50 mg PO DAILY@12 [facility] Last Admin: 06/10/21 11:36 Dose: 50 mg Documented by: Bisacodyl (Bisacodyl 5 Mg Tab) 5 mg PO DAILY PRN PRN Reason: Constipation Doxycycline Monohydrate (Doxycycline Monohydrate 100 Mg Cap) 100 mg PO BID [facility] Last Admin: 06/11/21 08:01 Dose: 100 mg Documented by: Enoxaparin Sodium (Enoxaparin 30 Mg/0.3 Ml Syringe) 30 mg SUBCUT DAILY [facility] Last Admin: 06/11/21 08:00 Dose: 30 mg Documented by: Hydralazine HCl (Hydralazine 10 Mg Tab) 10 mg PO Q6H [facility] Ceftriaxone Sodium 1 gm/ (Sodium Chloride) 100 mls @ 200 mls/hr IV Q24H [facility] Last Admin: 06/10/21 17:24 Dose: 200 mls/hr Documented by: Losartan Potassium (Losartan 50 Mg Tab) 100 mg PO DAILY@12 [facility] Last Admin: 06/10/21 11:36 Dose: 100 mg Documented by: Meclizine HCl (Meclizine 25 Mg Tab) 25 mg PO Q8HR [facility] Last Admin: 06/11/21 08:01 Dose: 25 mg Documented by: Mirtazapine (Mirtazapine 15 Mg Tab) 7.5 mg PO BEDTIME [facility] Last Admin: 06/10/21 20:19 Dose: 7.5 mg Documented by: Ondansetron HCl (Ondansetron 4 Mg/2 Ml Sdv) 4 mg IVPUSH Q6H PRN PRN Reason: Nausea/Vomiting Senna (Sennosides 8.6 Mg Tab) 8.6 mg PO BID PRN PRN Reason: Constipation Last Admin: 06/10/21 12:20 Dose: 8.6 mg Documented by: Trimethoprim/Sulfamethoxazole (Sulfamethoxazole/Trimethoprim 800-160 Mg Tab) 0.5 tab PO BEDTIME [facility] Last Admin: 06/10/21 20:19 Dose: 0.5 tab Documented by: Discontinued Medications Acetaminophen (Acetaminophen 325 Mg Tab) 650 mg PO NOW ONE Stop: 06/09/21 19:50 Last Admin: 06/09/21 23:47 Dose: 650 mg Documented by: Hydralazine HCl (Hydralazine 10 Mg Tab) 10 mg PO ONETIME ONE Stop: 06/10/21 00:32 Last Admin: 06/10/21 01:10 Dose: 10 mg Documented by: Sodium Chloride (Normal Saline) 1,000 mls @ 75 mls/hr IV ASDIRECTED [facility] Last Admin: 06/09/21 20:38 Dose: 75 mls/hr Documented by: Iopamidol (Iopamidol 755 Mg/Ml 100 Ml Bottle) Confirm Administered Dose 100 ml .ROUTE .STK-MED ONE Stop: 06/10/21 09:54 Iopamidol (Iopamidol 755 Mg/Ml 100 Ml Bottle) 100 ml IVPUSH ONETIME STA Stop: 06/10/21 10:46 Last Admin: 06/10/21 11:10 Dose: 100 ml Documented by: Meclizine HCl (Meclizine 25 Mg Tab) 25 mg PO Q8H [facility] Last Admin: 06/09/21 23:45 Dose: 25 mg Documented by: Ondansetron HCl (Ondansetron 4 Mg/2 Ml Sdv) 4 mg IVPUSH ONETIME ONE Stop: 06/09/21 20:03 Last Admin: 06/09/21 20:38 Dose: 4 mg Documented by: Sodium Chloride (Sodium Chloride 0.9% 10 Ml Syringe) 10 ml FLUSH ASDIRECTED PRN PRN Reason: Keep Vein Open - Exam Urinary Catheter Total Time: 1Days 9Hours - Patient Data Lab Results Last 24 hrs: Laboratory Results - last 24 hr 06/11/21 06/11/21 06/11/21 Range/Units 07:30 07:30 07:30 WBC 8.2 (4.0-10.2) K/uL RBC 4.60 (3.77-5.09) M/uL Hgb 13.9 (11.7-15.5) g/dL Hct 41.1 (34.0-46.0) % MCV 89.3 (84.0-98.0) fL MCH 30.2 (28.2-33.3) pg MCHC 33.8 (31.7-36.0) g/dL RDW 13.9 (11.2-14.1) % Plt Count 205 (150-350) K/uL Neut % (Auto) 67.1 (45.0-80.0) % Lymph % (Auto) 21.7 (10.0-50.0) % Love % (Auto) 8.8 (2.0-14.0) % Eos % (Auto) 2.2 (0.0-5.0) % Baso % (Auto) 0.2 (0.0-2.0) % Neut # (Auto) 5.51 (1.40-7.00) K/uL Lymph # (Auto) 1.78 (0.50-3.50) K/uL Love # (Auto) 0.72 (0.00-1.00) K/uL Eos # (Auto) 0.18 (0.00-0.50) K/uL Baso # (Auto) 0.02 (0.00-0.20) K/uL Sodium 134 L (136-145) mmol/L Potassium 4.2 (3.5-5.1) mmol/L Chloride 103 (98-107) mmol/L Carbon Dioxide 25.1 (21.0-32.0) mmol/L Anion Gap 10.1 (7-15) meq/L BUN 12 (7-18) mg/dL Creatinine 0.89 (0.51-1.17) mg/dL Est Cr Clr Drug Dosing 32.59 mL/min Estimated GFR (MDRD) > 60 mL/min Glucose 115 H (70-99) mg/dL Lactic Acid 1.2 (0.4-2.0) mmol/L Calcium 8.5 (8.5-10.1) mg/dL Phosphorus 3.1 (2.6-4.7) mg/dL Magnesium 2.0 (1.8-2.4) mg/dL Result Diagrams: 06/11/21 07:30 06/11/21 07:30 Sepsis Event Note - Evaluation Sepsis Screening Result: No Definite Risk - Focused Exam Vital Signs: Vital Signs Temp Pulse Resp BP Pulse Ox 06/11/21 08:23 37.2 C 78 18 168/72 H 94 L 06/11/21 05:16 36.9 C 65 20 140/90 95 06/11/21 00:38 135/95 H 06/11/21 00:00 36.4 C 56 L 16 218/87 H 96 - Problem List Review Problem List Initiated/Reviewed/Updated: Yes - My Orders Last 24 Hours: My Active Orders 06/10/21 11:02 Ambulate [RC] PER UNIT ROUTINE 06/10/21 11:57 Polyvinyl Alcohol [LiquiTears 1.4% Ophth Soln] 0 ml EYEBOTH Q1H PRN 06/10/21 17:00 cefTRIAXone [Rocephin] 1 gm Sodium Chloride 0.9% [Normal Saline] 100 ml IV Q24H 06/10/21 18:00 Doxycycline Monohydrate 100 mg PO BID 06/11/21 08:46 Renew/Continue Urinary Catheter [OM.PC] Routine 06/11/21 10:15 hydrALAZINE [Apresoline] 10 mg PO Q6H 06/11/21 10:35 Swallowing Function w Video [CR] Routine 06/13/21 10:15 Venous Doppler Lwr Ext Bi [US] Routine 06/13/21 10:37 Echo Comp wo Cont [US] Routine - Plan Plan:: Discontinue IV fluids. Pt. has been consuming adequate amount of fluid. Will start IV rocephin and oral doxycycline. She does have some atelectasis in the lung bases. PT and OT to see on Saturday. PT for ambulation/strengthening and also to assess for vestibular cause of vertigo. I would like her to have a swallow study done by speech as well. Encouraged patient to ambulate with assistance of nursing as much as possible. CBC, BMP in AM. 06/11/2021 Continue IV rocephin and oral doxycycline BID. Duplex US of lower extremities (ultrasound is not here tomorrow so this was ordered for Saturday) given her significantly elevated d dimer. She has no leg discomfort, Amarilis sign is negative, but her d dimer was greater than 5000. Transthoracic echo, due to persistent GUTIERREZ, vertigo and hypoxia with ambulation. This will be performed Saturday as well. Video swallow study on . She continues to have paroxysms of cough after drinking and eating. Family has mentioned that they have concerns for this as well in the past. Pt. was started on hydralazine 10mg Q 6 hours, as her BP has been slowly increasing during her stay. Continue plan to be seen by PT/OT as well. Pt. was encouraged to ambulate. Advised to get up slowly, and sit on the edge of the bed momentarily before standing.
[2021-06-11] MEDS: Losartan 50 MG Tab PO SCH (12:24)
[2021-06-11] MEDS: hydrALAZINE 10 MG Tab PO SCH ×3 (12:24→22:52)
[2021-06-11] MEDS: Atenolol 50 MG Tab PO SCH (12:25)
[2021-06-11] MEDS: Acetaminophen 325 MG Tab PO PRN (12:32)
[2021-06-11] MEDS: cefTRIAXone 1 GM in Sodium Chloride 0.9% 100 ML IV SCH (17:51)
[2021-06-11] MEDS: Sennosides 8.6 MG Tab PO PRN (17:51)
[2021-06-11] MEDS ORDERED: Sodium Chloride 0.9% 10 ML Syringe FLUSH PRN (17:53)
[2021-06-11] MEDS: Sulfamethoxazole/Trimethoprim 800-160 MG Tab PO SCH (20:17)
[2021-06-11] MEDS: Mirtazapine 15 MG Tab PO SCH (20:18)
[2021-06-12] MEDS: hydrALAZINE 10 MG Tab PO SCH ×2 (04:44→09:59)
[2021-06-12 07:36] LABS: ANION GAP 8.1 meq/L (7-15)
[2021-06-12] MEDS: Enoxaparin 30 MG/0.3 ML Syringe SUBCUT SCH (07:59)
[2021-06-12] MEDS: Sennosides 8.6 MG Tab PO PRN (07:59)
[2021-06-12] MEDS: Meclizine 25 MG Tab PO SCH ×3 (07:59→23:38)
[2021-06-12] MEDS: Acetaminophen 325 MG Tab PO PRN ×2 (08:00→12:21)
[2021-06-12] MEDS: Doxycycline Monohydrate 100 MG Cap PO SCH ×2 (08:00→17:16)
[2021-06-12] MEDS: Atenolol 50 MG Tab PO SCH (12:21)
[2021-06-12] MEDS: Losartan 50 MG Tab PO SCH (12:21)
--- NOTE | 2021-06-12 16:09 | PCM.PN ---
- General Info Date of Service: 06/12/21 Admission Dx/Problem (Free Text): Pt. admitted with global weakness, vertigo, and hypoxia. Subjective Update: Overall patient and daughter feel she is improving. Eating/drinking. Able to get up and use bathroom with minimal assistance. Still dizzy when up but no nausea/emesis. Functional Status: Reports: Pain Controlled, Tolerating Diet, Ambulating (with assistance), Urinating. 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 Patient does not compain of SOB) Cardiovascular: Denies: Chest Pain, Palpitations, Edema, Lightheadedness Gastrointestinal: Reports: No Symptoms Genitourinary: Reports: No Symptoms Musculoskeletal: Reports: Other (no acute changes from baseline) Skin: Reports: No Symptoms Neurological: Reports: Dizziness, Other (no focal new weakness/sensory change) Psychiatric: Reports: No Symptoms - Patient Data Vitals - Most Recent: Last Vital Signs Temp 36.8 C 06/12/21 12:00 Pulse 80 06/12/21 12:21 Resp 18 06/12/21 12:00 BP 150/80 H 06/12/21 12:21 Pulse Ox 92 L 06/12/21 12:00 Weight - Most Recent: 67.132 kg I&O - Last 24 Hours: Intake & Output 06/12/21 06/12/21 06/12/21 06:59 14:59 22:59 Intake Total 630 Output Total 700 500 Balance -700 130 Lab Results Last 24 Hours: Laboratory Results - last 24 hr 06/12/21 Range/Units 07:00 Sodium 136 (136-145) mmol/L Potassium 4.1 (3.5-5.1) mmol/L Chloride 103 (98-107) mmol/L Carbon Dioxide 24.9 (21.0-32.0) mmol/L Anion Gap 8.1 (7-15) meq/L BUN 15 (7-18) mg/dL Creatinine 1.03 (0.51-1.17) mg/dL Est Cr Clr Drug Dosing 28.16 mL/min Estimated GFR (MDRD) 51 mL/min Glucose 112 H (70-99) mg/dL Calcium 8.4 L (8.5-10.1) mg/dL Med Orders - Current: Current Medications Acetaminophen (Acetaminophen 650 Mg Supp) 650 mg RECTAL Q4H PRN PRN Reason: Pain (mild 1-3) Acetaminophen (Acetaminophen 325 Mg Tab) 650 mg PO Q4H PRN PRN Reason: Pain (Mild 1-3)/fever Last Admin: 06/12/21 12:21 Dose: 650 mg Documented by: Artificial Tears (Polyvinyl Alcohol 1.4% Ophth Soln 15 Ml Bottle) 0 ml EYEBOTH Q1H PRN PRN Reason: Dry Eyes Last Admin: 06/10/21 12:20 Dose: 2 drop Documented by: Atenolol (Atenolol 50 Mg Tab) 50 mg PO DAILY@12 [facility] Last Admin: 06/12/21 12:21 Dose: 50 mg Documented by: Bisacodyl (Bisacodyl 5 Mg Tab) 5 mg PO DAILY PRN PRN Reason: Constipation Doxycycline Monohydrate (Doxycycline Monohydrate 100 Mg Cap) 100 mg PO BID [facility] Last Admin: 06/12/21 08:00 Dose: 100 mg Documented by: Enoxaparin Sodium (Enoxaparin 30 Mg/0.3 Ml Syringe) 30 mg SUBCUT DAILY [facility] Last Admin: 06/12/21 07:59 Dose: 30 mg Documented by: Hydralazine HCl (Hydralazine 10 Mg Tab) 25 mg PO Q8H [facility] Hydrochlorothiazide (Hydrochlorothiazide 25 Mg Tab) 12.5 mg PO DAILY [facility] Ceftriaxone Sodium 1 gm/ (Sodium Chloride) 100 mls @ 200 mls/hr IV Q24H [facility] Last Admin: 06/11/21 17:51 Dose: 200 mls/hr Documented by: Losartan Potassium (Losartan 50 Mg Tab) 100 mg PO DAILY@12 [facility] Last Admin: 06/12/21 12:21 Dose: 100 mg Documented by: Meclizine HCl (Meclizine 25 Mg Tab) 25 mg PO Q8HR [facility] Last Admin: 06/12/21 07:59 Dose: 25 mg Documented by: Mirtazapine (Mirtazapine 15 Mg Tab) 7.5 mg PO BEDTIME [facility] Last Admin: 06/11/21 20:18 Dose: 7.5 mg Documented by: Ondansetron HCl (Ondansetron 4 Mg/2 Ml Sdv) 4 mg IVPUSH Q6H PRN PRN Reason: Nausea/Vomiting Senna (Sennosides 8.6 Mg Tab) 8.6 mg PO BID PRN PRN Reason: Constipation Last Admin: 06/12/21 07:59 Dose: 8.6 mg Documented by: Sodium Chloride (Sodium Chloride 0.9% 10 Ml Syringe) 10 ml FLUSH ASDIRECTED PRN PRN Reason: Keep Vein Open Trimethoprim/Sulfamethoxazole (Sulfamethoxazole/Trimethoprim 800-160 Mg Tab) 0.5 tab PO BEDTIME [facility] Last Admin: 06/11/21 20:17 Dose: 0.5 tab Documented by: Discontinued Medications Acetaminophen (Acetaminophen 325 Mg Tab) 650 mg PO NOW ONE Stop: 06/09/21 19:50 Last Admin: 06/09/21 23:47 Dose: 650 mg Documented by: Hydralazine HCl (Hydralazine 10 Mg Tab) 10 mg PO ONETIME ONE Stop: 06/10/21 00:32 Last Admin: 06/10/21 01:10 Dose: 10 mg Documented by: Hydralazine HCl (Hydralazine 10 Mg Tab) 10 mg PO Q6H [facility] Last Admin: 06/12/21 09:59 Dose: 10 mg Documented by: Sodium Chloride (Normal Saline) 1,000 mls @ 75 mls/hr IV ASDIRECTED [facility] Last Admin: 06/09/21 20:38 Dose: 75 mls/hr Documented by: Iopamidol (Iopamidol 755 Mg/Ml 100 Ml Bottle) Confirm Administered Dose 100 ml .ROUTE .STK-MED ONE Stop: 06/10/21 09:54 Iopamidol (Iopamidol 755 Mg/Ml 100 Ml Bottle) 100 ml IVPUSH ONETIME STA Stop: 06/10/21 10:46 Last Admin: 06/10/21 11:10 Dose: 100 ml Documented by: Meclizine HCl (Meclizine 25 Mg Tab) 25 mg PO Q8H [facility] Last Admin: 06/09/21 23:45 Dose: 25 mg Documented by: Ondansetron HCl (Ondansetron 4 Mg/2 Ml Sdv) 4 mg IVPUSH ONETIME ONE Stop: 06/09/21 20:03 Last Admin: 06/09/21 20:38 Dose: 4 mg Documented by: Sodium Chloride (Sodium Chloride 0.9% 10 Ml Syringe) 10 ml FLUSH ASDIRECTED PRN PRN Reason: Keep Vein Open Last Admin: 06/11/21 17:52 Dose: 10 ml Documented by: - Exam Quality Assessment: Supplemental Oxygen, DVT Prophylaxis Urinary Catheter Total Time: 2Days 9Hours General: Alert, Oriented, Cooperative, No Acute Distress HEENT: Pupils Equal, EOMI Neck: Supple Lungs: Decreased Breath Sounds (throughout, more pronounced at bases), Crackles (at bases) Cardiovascular: Regular Rate, Regular Rhythm GI/Abdominal Exam: Normal Bowel Sounds, Soft, Non-Tender, No Distention (Female) Exam: Deferred Back Exam: No: Muscle Spasm Extremities: Non-Tender, No Pedal Edema, Normal Capillary Refill Peripheral Pulses: 2+: Radial (L), Radial (R) Skin: Warm, Dry Neurological: No New Focal Deficit Psy/Mental Status: Alert, Normal Affect, Normal Mood - Patient Data Lab Results Last 24 hrs: Laboratory Results - last 24 hr 06/12/21 Range/Units 07:00 Sodium 136 (136-145) mmol/L Potassium 4.1 (3.5-5.1) mmol/L Chloride 103 (98-107) mmol/L Carbon Dioxide 24.9 (21.0-32.0) mmol/L Anion Gap 8.1 (7-15) meq/L BUN 15 (7-18) mg/dL Creatinine 1.03 (0.51-1.17) mg/dL Est Cr Clr Drug Dosing 28.16 mL/min Estimated GFR (MDRD) 51 mL/min Glucose 112 H (70-99) mg/dL Calcium 8.4 L (8.5-10.1) mg/dL Result Diagrams: 06/11/21 07:30 06/12/21 07:00 Sepsis Event Note - Evaluation Sepsis Screening Result: No Definite Risk - Focused Exam Vital Signs: Vital Signs Temp Pulse Pulse Resp BP BP Pulse Ox 06/12/21 12:21 80 150/80 H 06/12/21 12:00 36.8 C 80 18 150/80 H 92 L 06/12/21 09:59 156/65 H 06/12/21 09:55 36.6 C 67 18 156/65 H 92 L 06/12/21 08:00 36.8 C 69 16 173/89 H 94 L 06/12/21 04:49 37.2 C 65 20 175/65 H 95 08/09/21 04:44 175/65 H - Problem List & Annotations (1) Dizziness SNOMED Code(s): 924786112, 135346666 Code(s): R42 - DIZZINESS AND GIDDINESS Status: Acute Priority: High Current Visit: Yes Annotation/Comment:: Complains of continued dizziness but overall improved. Patient says this is a new kind of dizziness and that it has been present for several days prior to admission. Denies hitting head prior to developing dizziness. Did start Remeron 30 days ago which has dizziness as side effect. Had both ears irrigated and cleaned out by ENT earlier this week. This may be contributor to the dizzness. 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 No exudate/swelling suggestive of OE noted during exam. CT unremarkable but cannot rule out small stroke that may be linked with the dizziness/falls. (2) Elevated d-dimer SNOMED Code(s): 187413717 Code(s): R79.89 - OTHER SPECIFIED ABNORMAL FINDINGS OF BLOOD CHEMISTRY Status: Acute Priority: High Current Visit: Yes Annotation/Comment:: Greater than 5000. No complaint of SOB. CT of chest negative for DDimer. Pending lower extremity US study to further r/o blood clots. (3) Repeated falls SNOMED Code(s): 735237887 Code(s): R29.6 - REPEATED FALLS Status: Acute Priority: High Current Visit: Yes Annotation/Comment:: Has history of previous falls. Had fallen day of admission and day prior to admission. (4) Renal insufficiency SNOMED Code(s): 091717000, 292713229 Code(s): N28.9 - DISORDER OF KIDNEY AND URETER, UNSPECIFIED Status: Acute Priority: Medium Current Visit: Yes Annotation/Comment:: Cr of 1.4 at time o f admission. Normalized with IV hydration (5) HTN (hypertension) SNOMED Code(s): 67038346 Code(s): I10 - ESSENTIAL (PRIMARY) HYPERTENSION Status: Chronic Priority: Medium Current Visit: Yes Qualifiers: Hypertension type: primary hypertension Qualified Code(s): I10 - Essential (primary) hypertension Annotation/Comment:: observing trends. Has continued to run high. Hydralizine added after admission with some improvement noted. Will increase dose today. Small amount HCTZ added today. (6) Osteoporosis SNOMED Code(s): 22258941 Code(s): M81.0 - AGE-RELATED OSTEOPOROSIS W/O CURRENT PATHOLOGICAL FRACTURE Status: Chronic Priority: Medium Current Visit: Yes Qualifiers: Osteoporosis type: unspecified Presence of current pathological fracture: unspecified Qualified Code(s): M81.0 - Age-related osteoporosis without current pathological fracture Annotation/Comment:: Hx previous rib fractures. Has some new tenderness left lower ribs. No new fractures noted on CT (7) Osteoarthritis SNOMED Code(s): 084816879 Code(s): M19.90 - UNSPECIFIED OSTEOARTHRITIS, UNSPECIFIED SITE Status: Chronic Priority: Low Current Visit: Yes Qualifiers: Osteoarthritis location: unspecified site Osteoarthritis type: unspecified Qualified Code(s): M19.90 - Unspecified osteoarthritis, unspecified site Annotation/Comment:: Stable per history (8) Recurrent UTI SNOMED Code(s): 608819895 Code(s): N39.0 - URINARY TRACT INFECTION, SITE NOT SPECIFIED Status: Acute Priority: Low Current Visit: Yes Annotation/Comment:: Is on daily Bactrim. Normal UA at clinic today. (9) Hyponatremia SNOMED Code(s): 20494315 Code(s): E87.1 - HYPO-OSMOLALITY AND HYPONATREMIA Status: Acute Priority: Low Current Visit: Yes Annotation/Comment:: Na 133 at time of admission (10) Hard of hearing SNOMED Code(s): 47196963 Code(s): H91.90 - UNSPECIFIED HEARING LOSS, UNSPECIFIED EAR Status: Chronic Priority: Low Current Visit: No Qualifiers: Hearing loss type: unspecified Laterality: bilateral Qualified Code(s): H91.93 - Unspecified hearing loss, bilateral Annotation/Comment:: hearing aids (11) Macular degeneration SNOMED Code(s): 550015256 Code(s): H35.30 - UNSPECIFIED MACULAR DEGENERATION Status: Chronic Priority: Low Current Visit: Yes Qualifiers: Macular degeneration type: unspecified type Eye laterality: bilateral Qu alified Code(s): H35.30 - Unspecified macular degeneration Annotation/Comment:: Has lost most of vision (12) CHF (congestive heart failure) SNOMED Code(s): 02974647 Code(s): I50.9 - HEART FAILURE, UNSPECIFIED Status: Chronic Priority: Low Current Visit: Yes Qualifiers: Heart failure type: unspecified Heart failure chronicity: chronic Qualified Code(s): I50.9 - Heart failure, unspecified Annotation/Comment:: Mild elevation of BNP. No evidence of acute fluid overload on exam. - Problem List Review Problem List Initiated/Reviewed/Updated: Yes - My Orders Last 24 Hours: My Active Orders 06/12/21 08:43 Renew/Continue Urinary Catheter [OM.PC] Routine 06/12/21 16:00 hydrALAZINE [Apresoline] 25 mg PO Q8H hydroCHLOROthiazide 12.5 mg PO DAILY - Assessment Assessment:: as above - Plan Plan:: Started on IV rocephin and oral doxycycline for possible pneumonia process. She does have some atelectasis in the lung bases. PT and OT to see on Saturday. PT for ambulation/strengthening and also to assess for vestibular cause of vertigo. Swallow study by speech will also be scheduled.. Encouraged patient to ambulate with assistance of nursing as much as possible Duplex US of lower extremities scheduled today given her significantly elevated d dimer. She has no leg discomfort, Amarilis sign is negative, but her d dimer was greater than 5000. Transthoracic echo, due to persistent GUTIERREZ, vertigo and hypoxia with ambulation. This was scheduled for today. Video swallow study on . She continues to have paroxysms of cough after drinking and eating. Family has mentioned that they have concerns for this as well in the past. Continue to observe BP trends. Anticipate bed opening up at [facility] Saturday of this week, two days for now. Unsafe for patient to be on own at home and perform ADLs. Anticipate discharge to [facility] at that time with close follow up by PCP.
[2021-06-12] MEDS: cefTRIAXone 1 GM in Sodium Chloride 0.9% 100 ML IV SCH (16:15)
[2021-06-12] MEDS: hydrALAZINE 50 MG Tab PO SCH ×2 (16:18→23:37)
[2021-06-12] MEDS: Hydrochlorothiazide 25 MG Tab PO SCH (16:20)
[2021-06-12] MEDS: Mirtazapine 15 MG Tab PO SCH (20:23)
[2021-06-13] MEDS: Hydrochlorothiazide 25 MG Tab PO SCH (07:32)
[2021-06-13] MEDS: Meclizine 25 MG Tab PO SCH ×2 (07:32→17:10)
[2021-06-13] MEDS: Enoxaparin 30 MG/0.3 ML Syringe SUBCUT SCH (07:32)
[2021-06-13] MEDS: Doxycycline Monohydrate 100 MG Cap PO SCH ×2 (07:32→17:11)
[2021-06-13] MEDS: hydrALAZINE 50 MG Tab PO SCH ×2 (07:32→17:10)
[2021-06-13] MEDS: Losartan 50 MG Tab PO SCH (11:06)
[2021-06-13] MEDS: Atenolol 50 MG Tab PO SCH (11:07)
[2021-06-13] MEDS: cefTRIAXone 1 GM in Sodium Chloride 0.9% 100 ML IV SCH (17:10)
[2021-06-13] MEDS: Polyvinyl Alcohol 1.4% Ophth Soln 15 ML Bottle EYEBOTH PRN (19:34)
[2021-06-13] MEDS: Mirtazapine 15 MG Tab PO SCH (19:34)
--- NOTE | 2021-06-13 20:38 | PCM.PN ---
- General Info Date of Service: 06/13/21 Admission Dx/Problem (Free Text): Pt. admitted with global weakness, vertigo, and hypoxia. Subjective Update: Overall patient and daughter felt that she has improved. Eating/drinking. Able to get up and use bathroom with minimal assistance. Still dizzy when up but no nausea/emesis. Functional Status: Reports: Pain Controlled, Tolerating Diet, Ambulating, Urinating. Denies: New Symptoms - Review of Systems General: Denies: Fever, Weakness, Fatigue, Malaise, Chills, Night Sweats HEENT: Reports: Other (no acute changes) Pulmonary: Reports: Cough (intermittent nonproductive cough). Denies: Shortness of Breath, Pleuritic Chest Pain, Hemoptysis, Wheezing Cardiovascular: Denies: Chest Pain, Palpitations, Orthopnea, Edema Gastrointestinal: Denies: Abdominal Pain, Constipation, Decreased Appetite, Diarrhea, Nausea, Vomiting Genitourinary: Reports: No Symptoms Musculoskeletal: Reports: Other (no acute changes from baseline) Skin: Reports: No Symptoms Neurological: Reports: Dizziness, Difficulty Walking (due to dizziness), Other (no acute focal neuro changes). Denies: Confusion, Headache, Trouble Speaking Psychiatric: Reports: No Symptoms - Patient Data Vitals - Most Recent: Last Vital Signs Temp 36.9 C 06/13/21 18:00 Pulse 68 06/13/21 18:00 Resp 18 06/13/21 18:00 BP 139/64 06/13/21 18:00 Pulse Ox 93 L 06/13/21 18:00 Weight - Most Recent: 67.132 kg I&O - Last 24 Hours: Intake & Output 06/13/21 06/13/21 06/13/21 06:59 14:59 22:59 Intake Total 800 240 Output Total 500 550 Balance -500 800 -310 Med Orders - Current: Current Medications Acetaminophen (Acetaminophen 650 Mg Supp) 650 mg RECTAL Q4H PRN PRN Reason: Pain (mild 1-3) Acetaminophen (Acetaminophen 325 Mg Tab) 650 mg PO Q4H PRN PRN Reason: Pain (Mild 1-3)/fever Last Admin: 06/12/21 12:21 Dose: 650 mg Documented by: Artificial Tears (Polyvinyl Alcohol 1.4% Ophth Soln 15 Ml Bottle) 0 ml EYEBOTH Q1H PRN PRN Reason: Dry Eyes Last Admin: 06/13/21 19:34 Dose: 2 drop Documented by: Atenolol (Atenolol 50 Mg Tab) 50 mg PO DAILY@12 [facility] Last Admin: 06/13/21 11:07 Dose: 50 mg Documented by: Bisacodyl (Bisacodyl 5 Mg Tab) 5 mg PO DAILY PRN PRN Reason: Constipation Last Admin: 06/12/21 16:39 Dose: 5 mg Documented by: Doxycycline Monohydrate (Doxycycline Monohydrate 100 Mg Cap) 100 mg PO BID [facility] Last Admin: 06/13/21 17:11 Dose: 100 mg Documented by: Enoxaparin Sodium (Enoxaparin 30 Mg/0.3 Ml Syringe) 30 mg SUBCUT DAILY [facility] Last Admin: 06/13/21 07:32 Dose: 30 mg Documented by: Hydralazine HCl (Hydralazine 50 Mg Tab) 25 mg PO Q8H [facility] Last Admin: 06/13/21 17:10 Dose: 25 mg Documented by: Hydrochlorothiazide (Hydrochlorothiazide 25 Mg Tab) 12.5 mg PO DAILY [facility] Last Admin: 06/13/21 07:32 Dose: 12.5 mg Documented by: Ceftriaxone Sodium 1 gm/ (Sodium Chloride) 100 mls @ 200 mls/hr IV Q24H [facility] Last Admin: 06/13/21 17:10 Dose: 200 mls/hr Documented by: Losartan Potassium (Losartan 50 Mg Tab) 100 mg PO DAILY@12 [facility] Last Admin: 06/13/21 11:06 Dose: 100 mg Documented by: Meclizine HCl (Meclizine 25 Mg Tab) 25 mg PO Q8HR [facility] Last Admin: 06/13/21 17:10 Dose: 25 mg Documented by: Mirtazapine (Mirtazapine 15 Mg Tab) 7.5 mg PO BEDTIME [facility] Last Admin: 06/13/21 19:34 Dose: 7.5 mg Documented by: Ondansetron HCl (Ondansetron 4 Mg/2 Ml Sdv) 4 mg IVPUSH Q6H PRN PRN Reason: Nausea/Vomiting Senna (Sennosides 8.6 Mg Tab) 8.6 mg PO BID PRN PRN Reason: Constipation Last Admin: 06/12/21 07:59 Dose: 8.6 mg Documented by: Sodium Chloride (Sodium Chloride 0.9% 10 Ml Syringe) 10 ml FLUSH ASDIRECTED PRN PRN Reason: Keep Vein Open Last Admin: 06/12/21 16:20 Dose: 10 ml Documented by: Trimethoprim/Sulfamethoxazole (Sulfamethoxazole/Trimethoprim 800-160 Mg Tab) 0.5 tab PO BEDTIME [facility] Last Admin: 06/11/21 20:17 Dose: 0.5 tab Documented by: Discontinued Medications Acetaminophen (Acetaminophen 325 Mg Tab) 650 mg PO NOW ONE Stop: 06/09/21 19:50 Last Admin: 06/09/21 23:47 Dose: 650 mg Documented by: Hydralazine HCl (Hydralazine 10 Mg Tab) 10 mg PO ONETIME ONE Stop: 06/10/21 00:32 Last Admin: 06/10/21 01:10 Dose: 10 mg Documented by: Hydralazine HCl (Hydralazine 10 Mg Tab) 10 mg PO Q6H [facility] Last Admin: 06/12/21 09:59 Dose: 10 mg Documented by: Sodium Chloride (Normal Saline) 1,000 mls @ 75 mls/hr IV ASDIRECTED [facility] Last Admin: 06/09/21 20:38 Dose: 75 mls/hr Documented by: Iopamidol (Iopamidol 755 Mg/Ml 100 Ml Bottle) Confirm Administered Dose 100 ml .ROUTE .STK-MED ONE Stop: 06/10/21 09:54 Iopamidol (Iopamidol 755 Mg/Ml 100 Ml Bottle) 100 ml IVPUSH ONETIME STA Stop: 06/10/21 10:46 Last Admin: 06/10/21 11:10 Dose: 100 ml Documented by: Meclizine HCl (Meclizine 25 Mg Tab) 25 mg PO Q8H [facility] Last Admin: 06/09/21 23:45 Dose: 25 mg Documented by: Ondansetron HCl (Ondansetron 4 Mg/2 Ml Sdv) 4 mg IVPUSH ONETIME ONE Stop: 06/09/21 20:03 Last Admin: 06/09/21 20:38 Dose: 4 mg Documented by: Sodium Chloride (Sodium Chloride 0.9% 10 Ml Syringe) 10 ml FLUSH ASDIRECTED PRN PRN Reason: Keep Vein Open Last Admin: 06/11/21 17:52 Dose: 10 ml Documented by: - Exam Quality Assessment: DVT Prophylaxis Urinary Catheter Total Time: 3Days 21Hours General: Alert, Oriented, Cooperative, No Acute Distress HEENT: Pupils Equal, Pupils Reactive, EOMI, Mucous Membr. Moist/[place] Neck: Supple Lungs: Decreased Breath Sounds, Rales (lower left). No: Rhonchi, Rub, Stridor, Wheezing Cardiovascular: Regular Rate, Regular Rhythm GI/Abdominal Exam: Soft, Non-Tender, No Distention (Female) Exam: Deferred Back Exam: No: Muscle Spasm Extremities: Non-Tender, Normal Capillary Refill Skin: Warm, Dry Neurological: No New Focal Deficit Psy/Mental Status: Alert, Normal Affect, Normal Mood - Patient Data Result Diagrams: 06/11/21 07:30 06/12/21 07:00 Sepsis Event Note - Evaluation Sepsis Screening Result: No Definite Risk - Focused Exam Vital Signs: Vital Signs Temp Pulse Pulse Resp BP BP Pulse Ox 06/13/21 18:00 36.9 C 68 18 139/64 93 L 06/13/21 17:10 134/60 06/13/21 11:14 36.6 C 78 16 119/62 93 L 06/13/21 11:07 78 119/62 06/13/21 11:06 119/62 - Problem List & Annotations (1) Dizziness SNOMED Code(s): 294318160, 347437203 Code(s): R42 - DIZZINESS AND GIDDINESS Status: Acute Priority: High Current Visit: Yes Annotation/Comment:: Complains of continued dizziness but overall improved. Patient says this is a new kind of dizziness and that it has been present for several days prior to admission. Denies hitting head prior to developing dizziness. Did start Remeron 30 days ago which has dizziness as side effect. Had both ears irrigated and cleaned out by ENT earlier this week. This may be contributor to the dizzness. 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 No exudate/swelling suggestive of OE noted during exam. CT unremarkable but cannot rule out small stroke that may be linked with the dizziness/falls. Has had issues with dizziness in past. (2) CHF (congestive heart failure) SNOMED Code(s): 74550356 Code(s): I50.9 - HEART FAILURE, UNSPECIFIED Status: Chronic Priority: Low Current Visit: Yes Qualifiers: Heart failure type: unspecified Heart failure chronicity: chronic Quali fied Code(s): I50.9 - Heart failure, unspecified Annotation/Comment:: Mild elevation of BNP. No evidence of acute fluid overload on exam. Patient started on Rocephin and Doxy by another provider during stay to cover for potential early pneumonia due to cough and atelectasis noted on chest studies. (3) UTI (urinary tract infection) SNOMED Code(s): 47352492 Code(s): N39.0 - URINARY TRACT INFECTION, SITE NOT SPECIFIED Status: Acute Priority: Medium Current Visit: Yes Qualifiers: Urinary tract infection type: site unspecified Hematuria presence: without hematuria Qualified Code(s): N39.0 - Urinary tract infection, site not specified Annotation/Comment:: Positive culture for Staph Hominis sent to us from [facility]. Susceptible to Tetracycline and Macrobid. Patient currently receiving IV Rocephin and Doxycycline. Will switch patient to Macrobid and d/c IV antibiotics at time of discharge. (4) Elevated d-dimer SNOMED Code(s): 499075250 Code(s): R79.89 - OTHER SPECIFIED ABNORMAL FINDINGS OF BLOOD CHEMISTRY Status: Acute Priority: High Current Visit: Yes Annotation/Comment:: Greater than 5000. No complaint of SOB. CT of chest negative for DDimer. Lower extremity US study to further r/o blood clots performed today. No noted clots reported by tech. Pending formal Radiology review (5) Repeated falls SNOMED Code(s): 212395166 Code(s): R29.6 - REPEATED FALLS Status: Acute Priority: High Current Visit: Yes Annotation/Comment:: Has history of previous falls. Had fallen day of admission and day prior to admission. (6) Renal insufficiency SNOMED Code(s): 541864868, 637591358 Code(s): N28.9 - DISORDER OF KIDNEY AND URETER, UNSPECIFIED Status: Acute Priority: Medium Current Visit: Yes Annotation/Comment:: Cr of 1.4 at time of admission. Normalized with IV hydration (7) HTN (hypertension) SNOMED Code(s): 19943201 Code(s): I10 - ESSENTIAL (PRIMARY) HYPERTENSION Status: Chronic Priority: Medium Current Visit: Yes Qualifiers: Hypertension type: primary hypertension Qualified Code(s): I10 - Essential (primary) hypertension Annotation/Comment:: observing trends. Has continued to run high. Hydralizine added after admission with some improvement noted. Will increase dose today. Small amount HCTZ added today. (8) Osteoporosis SNOMED Code(s): 46510386 Code(s): M81.0 - AGE-RELATED OSTEOPOROSIS W/O CURRENT PATHOLOGICAL FRACTURE Status: Chronic Priority: Medium Current Visit: Yes Qualifiers: Osteoporosis type: unspecified Presence of current pathological fracture: unspecified Qualified Code(s): M81.0 - Age-related osteoporosis without current pathological fracture Annotation/Comment:: Hx previous rib fractures. Has some new tenderness left lower ribs. No new fractures noted on CT (9) Osteoarthritis SNOMED Code(s): 356671858 Code(s): M19.90 - UNSPECIFIED OSTEOARTHRITIS, UNSPECIFIED SITE Status: Chronic Priority: Low Current Visit: Yes Qualifiers: Osteoarthritis location: unspecified site Osteoarthritis type: unspecified Qualified Code(s): M19.90 - Unspecified osteoarthritis, unspecified site Annotation/Comment:: Stable per history (10) Recurrent UTI SNOMED Code(s): 292853925 Code(s): N39.0 - URINARY TRACT INFECTION, SITE NOT SPECIFIED Status: Acute Priority: Low Current Visit: Yes Annotation/Comment:: Is on daily Bactrim. Normal UA at clinic today. (11) Hyponatremia SNOMED Code(s): 28070471 Code(s): E87.1 - HYPO-OSMOLALITY AND HYPONATREMIA Status: Acute Priority: Low Current Visit: Yes Annotation/Comment:: Na 133 at time of admission (12) Hard of hearing SNOMED Code(s): 62365871 Code(s): H91.90 - UNSPECIFIED HEARING LOSS, UNSPECIFIED EAR Status: Chronic Priority: Low Current Visit: No Qualifiers: Hearing loss type: unspecified Laterality: bilateral Qualified Code(s): H91.93 - Unspecified hearing loss, bilateral Annotation/Comment:: hearing aids (13) Macular degeneration SNOMED Code(s): 890996089 Code(s): H35.30 - UNSPECIFIED MACULAR DEGENERATION Status: Chronic Priority: Low Current Visit: Yes Qualifiers: Macular degeneration type: unspecified type Eye laterality: bilateral Qualified Code(s): H35.30 - Unspecified macular degeneration Annotation/Comment:: Has lost most of vision - Problem List Review Problem List Initiated/Reviewed/Updated: Yes - My Orders Last 24 Hours: My Active Orders 06/13/21 10:19 Renew/Continue Urinary Catheter [OM.PC] Routine 06/14/21 05:11 COMPREHENSIVE METABOLIC PN,CMP [CHEM] AM 06/14/21 05:15 CBC WITH AUTO DIFF [HEME] AM - Assessment Assessment:: as above - Plan Plan:: Started on IV rocephin and oral doxycycline for possible pneumonia process. She does have some atelectasis in the lung bases. PT and OT working with patient. Encouraged patient to ambulate with assistance of nursing as much as possible Duplex US of lower extremities scheduled today given her significantly elevated d dimer. She has no leg discomfort, Amarilis sign is negative, but her d dimer was greater than 5000. Initial impression was no obvious DVT however formal review pending. Transthoracic echo, due to persistent GUTIERREZ, vertigo and hypoxia with ambulation, performed today. Results pending. Video swallow study on will be postponed and scheduled by [facility] as patient is to be discharged. She continues to have paroxysms of cough after drinking and eating. Family has mentioned that they have concerns for this as well in the past. Continue to observe BP trends. Unsafe for patient to be on own at home and perform ADLs. Anticipate discharge to [facility] tomorrow with close follow up by PCP.
[2021-06-14] MEDS: hydrALAZINE 50 MG Tab PO SCH ×2 (00:38→07:54)
[2021-06-14] MEDS: Meclizine 25 MG Tab PO SCH ×2 (00:38→07:53)
[2021-06-14] MEDS: Doxycycline Monohydrate 100 MG Cap PO SCH (07:54)
[2021-06-14] MEDS: Hydrochlorothiazide 25 MG Tab PO SCH (07:55)
[2021-06-14] MEDS: Enoxaparin 30 MG/0.3 ML Syringe SUBCUT SCH (07:56)
[2021-06-14 08:18] LABS: ANION GAP 10.3 meq/L (7-15)
[2021-06-14] MEDS: Atenolol 50 MG Tab PO SCH (11:14)
[2021-06-14] MEDS: Losartan 50 MG Tab PO SCH (11:15)
--- NOTE | 2021-06-14 12:06 | PCM.DCSUM1 ---
Discharge Summary - Hospital Course Brief History: Patient admitted for further evaluation after developing extreme dizziness/falls and possible new facial droop/ischemic event. Diagnosis: Stroke: No - Discharge Data Discharge Date: 06/14/21 Discharge Disposition: DC/Tfer to SNF 03 Condition: Good - Referral to Home Health Primary Care Physician: PCP Unobtainable - Discharge Diagnosis/Problem(s) (1) Dizziness SNOMED Code(s): 076874564, 932983512 ICD Code: R42 - DIZZINESS AND GIDDINESS Status: Acute Priority: High Current Visit: Yes Problem Details: Complains of continued dizziness but overall improved. Did start Remeron 30 days ago which has dizziness as side effect. This will be discontinued for now. Had both ears irrigated and cleaned out by ENT several days prior to the dizziness. This may be contributor to the dizzness. 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 No exudate/swelling suggestive of OE noted during exam. CT unremarkable but cannot rule out small stroke that may be linked with the dizziness/falls. Has had issues with dizziness in past but feels this is different. (2) CHF (congestive heart failure) SNOMED Code(s): 04115756 ICD Code: I50.9 - HEART FAILURE, UNSPECIFIED Status: Chronic Priority: Lo w Current Visit: Yes Problem Details: Mild elevation of BNP. No evidence of acute fluid overload on exam. Patient started on Rocephin and Doxy by another provider during stay to cover for potential early pneumonia due to cough and atelectasis noted on chest studies. Qualifiers: Heart failure type: unspecified Heart failure chronicity: chronic Qualified Code(s): I50.9 - Heart failure, unspecified (3) UTI (urinary tract infection) SNOMED Code(s): 85522645 ICD Code: N39.0 - URINARY TRACT INFECTION, SITE NOT SPECIFIED Status: Acute Priority: Medium Current Visit: Yes Problem Details: Positive culture for Staph Hominis sent to us from [facility]. Susceptible to Tetracycline and Macrobid. Patient currently receiving IV Rocephin and Doxycycline. Will switch patient to Macrobid and d/c IV antibiotics at time of discharge. Qualifiers: Urinary tract infection type: site unspecified Hematuria presence: without hematuria Qualified Code(s): N39.0 - Urinary tract infection, site not spe cified (4) Elevated d-dimer SNOMED Code(s): 276043558 ICD Code: R79.89 - OTHER SPECIFIED ABNORMAL FINDINGS OF BLOOD CHEMISTRY Status: Acute Priority: High Current Visit: Yes Problem Details: Greater than 5000. No complaint of SOB. CT of chest negative for DDimer. Lower extremity US study to further r/o blood clots performed today. No noted clots reported by tech. Pending formal Radiology review (5) Repeated falls SNOMED Code(s): 550091750 ICD Code: R29.6 - REPEATED FALLS Status: Acute Priority: High Current Visit: Yes Problem Details: Has history of previous falls. Had fallen day of admission and day prior to admission. (6) Renal insufficiency SNOMED Code(s): 291283114, 639858049 ICD Code: N28.9 - DISORDER OF KIDNEY AND URETER, UNSPECIFIED Status: Acute Priority: Medium Current Visit: Yes Problem Details: Cr of 1.4 at time of admission. Normalized with IV hydration (7) HTN (hypertension) SNOMED Code(s): 03897494 ICD Code: I10 - ESSENTIAL (PRIMARY) HYPERTENSION Status: Chronic Priority: Medium Current Visit: Yes Problem Details: Improved. Hydralizine added after admission with some improvement noted. Small amount HCTZ added yesterday. Qualifiers: Hypertension type: primary hypertension Qualified Code(s): I10 - Essential (primary) hypertension (8) Osteoporosis SNOMED Code(s): 34254266 ICD Code: M81.0 - AGE-RELATED OSTEOPOROSIS W/O CURRENT PATHOLOGICAL FRACTURE Status: Chronic Priority: Medium Current Visit: Yes Problem Details: Hx previous rib fractures. Has some new tenderness left lower ribs. No new fractures noted on CT Qualifiers: Osteoporosis type: unspecified Presence of current pathological fracture: unspecified Qualified Code(s): M81.0 - Age-related osteoporosis without current pathological fracture (9) Osteoarthritis SNOMED Code(s): 006410049 ICD Code: M19.90 - UNSPECIFIED OSTEOARTHRITIS, UNSPECIFIED SITE Status: Chronic Priority: Low Current Visit: Yes Problem Details: Stable per history Qualifiers: Osteoarthritis location: unspecified site Osteoarthritis type: unspecified Qualified Code(s): M19.90 - Unspecified osteoarthritis, unspecified site (10) Recurrent UTI SNOMED Code(s): 026725060 ICD Code: N39.0 - URINARY TRACT INFECTION, SITE NOT SPECIFIED Status: Acute Priority: [facility] Current Visit: Yes Problem Details: Is on daily Bactrim. Normal UA at clinic today. (11) Hyponatremia SNOMED Code(s): 28792389 ICD Code: E87.1 - HYPO-OSMOLALITY AND HYPONATREMIA Status: Acute Priority: [facility] Current Visit: Yes Problem Details: Na 133 at time of admission (12) Hard of hearing SNOMED Code(s): 96619169 ICD Code: H91.90 - UNSPECIFIED HEARING LOSS, UNSPECIFIED EAR Status: Chronic Priority: [facility] Current Visit: No Problem Details: hearing aids Qualifiers: Hearing loss type: unspecified Laterality: bilateral Qualified Code(s): H91.93 - Unspecified hearing loss, bilateral (13) Macular degeneration SNOMED Code(s): 411283979 ICD Code: H35.30 - UNSPECIFIED MACULAR DEGENERATION Status: Chronic Priority: [facility] Current Visit: Yes Problem Details: Has lost most of vision Qualifiers: Macular degeneration type: unspecified type Eye laterality: bilateral Qualified Code(s): H35.30 - Unspecified macular degeneration - Patient Summary/Data Consults: Consultations 06/09/21 20:37 Consult to Case Management/Nitroglycerin Separator Operator [CONS] Routine OT Evaluation and Treatment [CONS] Routine PT Evaluation and Treatment [CONS] Routine Hospital Course: Patient continued to have lightheaded sensation throughout stay but did improve to point where no longer having nausea/emesis with movement. BP initially significantly elevated but improved with medication adjustment. No obvious new stroke found on head CT but cannot rule of vascular contribution to new dizziness and decline in ability to perform ADLs. Elevated DDimer noted but negative chest CT for PE and negative LE US study for DVT. Patient found to have positive UC from [facility]. Had been started on antibiotics for possible pneumonia shortly after admission due to cough/increased O2 requirement. Suspect that those changes more likely related to mild CHF. PT/OT evaluated patient and it was determined that patient likely unable to return to independent living. Arrangements made for patient to be discharged to skilled bed at [facility] which was family's preferred choice. Patient to follow up with PCP closely for continued monitoring of BP response/ongoing UTI issues/dizziness. - Patient Instructions Diet: Usual Diet as Tolerated Fluid Restriction: 1500 mL Activity: As Tolerated Showering/Bathing: May Shower Other/Special Instructions: Updated and current H&P for [facility] admission. Admit to skilled bed at [facility]. PT and OT to evaluate and treat appropriately. Also needs to have swallow eval/video swallow arranged due to concerns of aspiration. Contact patient's primary and have patient follow up with her within the week for review of orders and any adjustement as needed. TID blood pressures over next two weeks with follow up with PCP for further BP med adjustment as needed. Hold Bactrim dose for 10 days while patient is on Macrobid. Have decreased Hydralazine to 10mg TID. May need to put it back to 25mg TID if BPs elevate too much. Follow up with PCP in regards to this. - Discharge Plan *PRESCRIPTION DRUG MONITORING PROGRAM REVIEWED*: Not Applicable *COPY OF PRESCRIPTION DRUG MONITORING REPORT IN PATIENT JHONY: Not Applicable Prescriptions/Med Rec: Meclizine [Antivert] 25 mg PO Q8HR PRN #60 tablet PRN Reason: Dizziness hydrALAZINE [Apresoline] 10 mg PO Q8H #90 tablet hydroCHLOROthiazide [Hydrochlorothiazide] 12.5 mg PO DAILY #30 tablet Nitrofurantoin Monohyd/M-Cryst [Macrobid 100 mg Capsule] 100 mg PO BID #20 capsule Home Medications: Home Meds Losartan Potassium 100 mg PO DAILY@12/21/20 [History] atenoloL [Atenolol] 50 mg PO DAILY@12/21/20 [History] Sulfamethoxazole/Trimethoprim [Sulfamethoxazole-Tmp Ss Tablet] 1 tab PO BEDTIME 06/09/21 [History] Docusate Sodium [Colace] 100 mg PO 1200 06/10/21 [History] Polyvinyl Alcohol [LiquiTears 1.4% Ophth Soln] 2 drop EYEBOTH BID 06/10/21 [History] Meclizine [Antivert] 25 mg PO Q8HR PRN #60 tablet 06/14/21 [Rx] Nitrofurantoin Monohyd/M-Cryst [Macrobid 100 mg Capsule] 100 mg PO BID #20 capsule 06/14/21 [Rx] Polyvinyl Alcohol [LiquiTears 1.4% Ophth Soln] 0 ml EYEBOTH Q1H PRN bottle 06/04 11/24 [Rx] hydrALAZINE [Apresoline] 10 mg PO Q8H #90 tablet 06/14/21 [Rx] hydroCHLOROthiazide [Hydrochlorothiazide] 12.5 mg PO DAILY #30 tablet 06/14/21 [Rx] Oxygen Therapy Mode: Nasal Cannula (1-2 Liters PRN) Maintain SpO2% greater than: 89 Forms: ED Department Discharge Referrals: PCP,Unobtain [Primary Care Provider] - - Discharge Summary/Plan Comment DC Time >30 min.: No Total # of Minutes for Discharge Time: 30 - Patient Data Vitals - Most Recent: Last Vital Signs Temp 36.9 C 06/14/21 11:10 Pulse 80 06/14/21 11:14 Resp 16 06/14/21 11:10 BP 112/56 L 06/14/21 11:15 Pulse Ox 93 L 06/14/21 11:10 Weight - Most Recent: 67.132 kg I&O - Last 24 hours: Intake & Output 06/13/21 06/14/21 06/14/21 22:59 06:59 14:59 Intake Total 240 50 Output Total 550 500 200 Balance -310 -450 -200 Lab Results - Last 24 hrs: Laboratory Results - last 24 hr 06/14/21 06/14/21 Range/Units 07:25 07:25 WBC 8.0 (4.0-10.2) K/uL RBC 4.60 (3.77-5.09) M/uL Hgb 13.8 (11.7-15.5) g/dL Hct 41.3 (34.0-46.0) % MCV 89.8 (84.0-98.0) fL MCH 30.0 (28.2-33.3) pg MCHC 33.4 (31.7-36.0) g/dL RDW 14.4 H (11.2-14.1) % Plt Count 241 (150-350) K/uL Neut % (Auto) 51.7 (45.0-80.0) % Lymph % (Auto) 37.3 (10.0-50.0) % [place] % (Auto) 7.9 (2.0-14.0) % Eos % (Auto) 2.6 (0.0-5.0) % Baso % (Auto) 0.5 (0.0-2.0) % Neut # (Auto) 4.15 (1.40-7.00) K/uL Lymph # (Auto) 2.99 (0.50-3.50) K/uL [place] # (Auto) 0.63 (0.00-1.00) K/uL Eos # (Auto) 0.21 (0.00-0.50) K/uL Baso # (Auto) 0.04 (0.00-0.20) K/uL Sodium 140 (136-145) mmol/L Potassium 4.3 (3.5-5.1) mmol/L Chloride 104 (98-107) mmol/L Carbon Dioxide 25.7 (21.0-32.0) mmol/L Anion Gap 10.3 (7-15) meq/L BUN 22 H (7-18) mg/dL Creatinine 0.95 (0.51-1.17) mg/dL Est Cr Clr Drug Dosing 30.53 mL/min Estimated GFR (MDRD) 56 mL/min Glucose 98 (70-99) mg/dL Calcium 8.4 L (8.5-10.1) mg/dL Total Bilirubin 0.6 (0.2-1.0) mg/dL AST 46 H (15-37) U/L ALT 92 H (12-78) U/L Alkaline Phosphatase 122 H (46-116) IU/L Total Protein 6.7 (6.4-8.2) g/dL Albumin 3.0 L (3.4-5.0) g/dL Med Orders - Current: Current Medications Acetaminophen (Acetaminophen 650 Mg Supp) 650 mg RECTAL Q4H PRN PRN Reason: Pain (mild 1-3) Acetaminophen (Acetaminophen 325 Mg Tab) 650 mg PO Q4H PRN PRN Reason: Pain (Mild 1-3)/fever Last Admin: 06/12/21 12:21 Dose: 650 mg Documented by: Artificial Tears (Polyvinyl Alcohol 1.4% Ophth Soln 15 Ml Bottle) 0 ml EYEBOTH Q1H PRN PRN Reason: Dry Eyes Last Admin: 06/13/21 19:34 Dose: 2 drop Documented by: Atenolol (Atenolol 50 Mg Tab) 50 mg PO DAILY@12 ANN-MARIE Last Admin: 06/14/21 11:14 Dose: 50 mg Documented by: Bisacodyl (Bisacodyl 5 Mg Tab) 5 mg PO DAILY PRN PRN Reason: Constipation Last Admin: 06/12/21 16:39 Dose: 5 mg Documented by: Doxycycline Monohydrate (Doxycycline Monohydrate 100 Mg Cap) 100 mg PO BID [facility] [place] Last Admin: 06/14/21 07:54 Dose: 100 mg Documented by: Enoxaparin Sodium (Enoxaparin 30 Mg/0.3 Ml Syringe) 30 mg SUBCUT DAILY [facility] [place] Last Admin: 06/14/21 07:56 Dose: 30 mg Documented by: Hydralazine HCl (Hydralazine 50 Mg Tab) 25 mg PO Q8H [facility] [place] Last Admin: 06/14/21 07:54 Dose: 25 mg Documented by: Hydrochlorothiazide (Hydrochlorothiazide 25 Mg Tab) 12.5 mg PO DAILY [facility] [place] Last Admin: 06/14/21 07:55 Dose: 12.5 mg Documented by: Ceftriaxone Sodium 1 gm/ (Sodium Chloride) 100 mls @ 200 mls/hr IV Q24H [facility] [place] Last Admin: 06/13/21 17:10 Dose: 200 mls/hr Documented by: Losartan Potassium (Losartan 50 Mg Tab) 100 mg PO DAILY@12 [facility] [place] Last Admin: 06/14/21 11:15 Dose: 100 mg Documented by: Meclizine HCl (Meclizine 25 Mg Tab) 25 mg PO Q8HR [facility] [place] Last Admin: 06/14/21 07:53 Dose: 25 mg Documented by: Mirtazapine (Mirtazapine 15 Mg Tab) 7.5 mg PO BEDTIME [facility] [place] Last Admin: 06/13/21 19:34 Dose: 7.5 mg Documented by: Ondansetron HCl (Ondansetron 4 Mg/2 Ml Sdv) 4 mg IVPUSH Q6H PRN PRN Reason: Nausea/Vomiting Senna (Sennosides 8.6 Mg Tab) 8.6 mg PO BID PRN PRN Reason: Constipation Last Admin: 06/12/21 07:59 Dose: 8.6 mg Documented by: Sodium Chloride (Sodium Chloride 0.9% 10 Ml Syringe) 10 ml FLUSH ASDIRECTED PRN PRN Reason: Keep Vein Open Last Admin: 06/12/21 16:20 Dose: 10 ml Documented by: Trimethoprim/Sulfamethoxazole (Sulfamethoxazole/Trimethoprim 800-160 Mg Tab) 0.5 tab PO BEDTIME [facility] [place] Last Admin: 06/11/21 20:17 Dose: 0.5 tab Documented by: Discontinued Medications Acetaminophen (Acetaminophen 325 Mg Tab) 650 mg PO NOW ONE Stop: 06/09/21 19:50 Last Admin: 06/09/21 23:47 Dose: 650 mg Documented by: Hydralazine HCl (Hydralazine 10 Mg Tab) 10 mg PO ONETIME ONE Stop: 06/10/21 00:32 Last Admin: 06/10/21 01:10 Dose: 10 mg Documented by: Hydralazine HCl (Hydralazine 10 Mg Tab) 10 mg PO Q6H [facility] [place] Last Admin: 06/12/21 09:59 Dose: 10 mg Documented by: Sodium Chloride (Normal Saline) 1,000 mls @ 75 mls/hr IV ASDIRECTED ANN-MARIE Last Admin: 06/09/21 20:38 Dose: 75 mls/hr Documented by: Iopamidol (Iopamidol 755 Mg/Ml 100 Ml Bottle) Confirm Administered Dose 100 ml .ROUTE .STK-MED ONE Stop: 06/10/21 09:54 Iopamidol (Iopamidol 755 Mg/Ml 100 Ml Bottle) 100 ml IVPUSH ONETIME STA Stop: 06/10/21 10:46 Last Admin: 06/10/21 11:10 Dose: 100 ml Documented by: Meclizine HCl (Meclizine 25 Mg Tab) 25 mg PO Q8H [facility] [place] Last Admin: 06/09/21 23:45 Dose: 25 mg Documented by: Ondansetron HCl (Ondansetron 4 Mg/2 Ml Sdv) 4 mg IVPUSH ONETIME ONE Stop: 06/09/21 20:03 Last Admin: 06/09/21 20:38 Dose: 4 mg Documented by: Sodium Chloride (Sodium Chloride 0.9% 10 Ml Syringe) 10 ml FLUSH ASDIRECTED PRN PRN Reason: Keep Vein Open Last Admin: 06/11/21 17:52 Dose: 10 ml Documented by:
== END 2021-06-14 13:00 | DRG 149 ==
LOC: LL.ED 18:35 → LL.MS 19:50 → UNDOADMIN 19:50 → LL.MS 20:41 → UNDODISIN 06-14 13:00
PROVIDERS: ADMIT Emergency Medicine; ATTEND Physician Assistant
DX: R42 Dizziness and giddiness (principal); I63.9 Cerebral infarction, unspecified; N39.0 Urinary tract infection, site not specified; E87.1 Hypo-osmolality and hyponatremia; I13.0 Hypertensive heart and chronic kidney disease with heart failure and stage 1 through stage 4 chronic kidney disease, or unspecified chronic kidney disease; I50.9 Heart failure, unspecified; R79.89 Other specified abnormal findings of blood chemistry; T43.025A Adverse effect of tetracyclic antidepressants, initial encounter; R29.6 Repeated falls; M81.0 Age-related osteoporosis without current pathological fracture; M19.90 Unspecified osteoarthritis, unspecified site; N18.9 Chronic kidney disease, unspecified; H91.93 Unspecified hearing loss, bilateral; H35.30 Unspecified macular degeneration; K59.09 Other constipation; K57.90 Diverticulosis of intestine, part unspecified, without perforation or abscess without bleeding; M25.569 Pain in unspecified knee; G89.29 Other chronic pain; H54.7 Unspecified visual loss; B95.8 Unspecified staphylococcus as the cause of diseases classified elsewhere; Z88.2 Allergy status to sulfonamides; Z79.899 Other long term (current) drug therapy; Z98.49 Cataract extraction status, unspecified eye; Z90.710 Acquired absence of both cervix and uterus
CPT/HCPCS: 36415; 51702; 70450; 71045; 71275; 80048; 80053; 81001; 82550; 83605; 83735; 83880; 84100; 84484; 85025; 85379; 85610; 93005; 93010; 93306; 93970; 96374; 97110-GP; 97163-GP; 97165-GO; 97530-GO; 97530-GP; 99223; 99232; 99233; 99238; 99285-25; A9270-GY; J0696; J1650; J2405; J7030; Q9967

== ENCOUNTER 2021-06-16 11:11 | Inpatient (IN) | payer MEDICARE, OTHER ==
[2021-06-16] MEDS ORDERED: 1/2 NS W IV SCH (11:30)
[2021-06-16] MEDS ORDERED: D5 IV SCH (11:30)
[2021-06-16] MEDS ORDERED: Sodium Chloride 0.9% 1,000 ML IV SCH ×2 (11:30→13:30)
[2021-06-16] MEDS ORDERED: KCL IV SCH (11:30)
[2021-06-16] MEDS: Sodium Chloride 0.9% 10 ML Syringe FLUSH PRN (12:03)
[2021-06-16 12:08] LABS: PCO2 ARTERIAL,POC 24 mmHg (35-48)
--- NOTE | 2021-06-16 12:09 | EDM.PDOC ---
ED HPI GENERAL MEDICAL PROBLEM - General Chief Complaint: General Stated Complaint: lethargy, fever, hypertension Time Seen by Provider: 06/16/21 11:20 Source of Information: Reports: Patient, Family, Custodial Records, Old Records History Limitations: Reports: Other (lethargic) - History of Present Illness INITIAL COMMENTS - FREE TEXT/NARRATIVE: Patient is brought in by the 's care home for not doing well. She was hospitalized 06/09-06/14 for uti, decreased responsiveness and discharge to a short term stay at the care home. She was alert and cared for herself prior to this illness. She arrived at the care home still with decreased responsiveness, fatigue, labored breathing and was being treated for UIT with macrobid. She was unable to get out of bed herself. sleeping most of the time. PCP did order some labs, but decision was made to transfer her to the Ed for evaluation. Accompanied by her daughter as a historian, patient is not very alert. 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, Other Medication(s) (antibiotics) - Related Data Allergies Allergy/AdvReac Type Severity Reaction Status Date / Time No Known Allergies Allergy Verified 06/16/21 11:12 Home Meds: Home Meds Losartan Potassium 100 mg PO DAILY@12 12/21/20 [History] atenoloL [Atenolol] 50 mg PO BID@12,12/21/20 [History] Docusate Sodium [Colace] 100 mg PO 1200 06/10/21 [History] Polyvinyl Alcohol [LiquiTears 1.4% Ophth Soln] 2 drop EYEBOTH BID 06/10/21 [History] Meclizine [Antivert] 25 mg PO Q8HR PRN #60 tablet 06/14/21 [Rx] Nitrofurantoin Monohyd/M-Cryst [Macrobid 100 mg Capsule] 100 mg PO BID #20 capsule 06/14/21 [Rx] Polyvinyl Alcohol [LiquiTears 1.4% Ophth Soln] 0 ml EYEBOTH Q1H PRN bottle 06/14/21 [Rx] hydroCHLOROthiazide [Hydrochlorothiazide] 12.5 mg PO DAILY #30 tablet 06/14/21 [Rx] hydrALAZINE [Apresoline] 10 mg PO TID 06/16/21 [History] Past Medical History HEENT History: Reports: Hard of Hearing, Impaired Vision, Macular Degeneration Cardiovascular History: Reports: Heart Failure, Hypertension Gastrointestinal History: Reports: Chronic Constipation, Diverticulosis Genitourinary History: Reports: UTI, Recurrent Musculoskeletal History: Reports: Fracture, Osteoarthritis, Osteoporosis, Other (See Below) Other Musculoskeletal History: chronic knee pain, bilat wrist fx. Neurological History: Reports: Other (See Below) Other Neuro History: a non-headache migraine. Hematologic History: Reports: Other (See Below) Other Hematologic History: HYPONATREMIA - Past Surgical History HEENT Surgical History: Reports: Cataract Surgery GI Surgical History: Reports: Colostomy Female Surgical History: Reports: Hysterectomy, Other (See Below) Other Female Surgeries/Procedures: bladder repair surgery Social & Family History - Caffeine Use Caffeine Use: Reports: Coffee - Alcohol Use Alcohol Use History: No Alcohol Use in Last Twelve Months: No - Recreational Drug Use Recreational Drug Use: No Drug Use in Last 12 Months: No - Living Situation & Occupation Living situation: Reports: Single, Extended Care Facility (for rehab since 06/14) ED ROS GENERAL - Review of Systems Review Of Systems: Unable To Obtain Reason Not Obtained: partial from family, patient is lethargic Constitutional: Reports: Malaise, Weakness, Fatigue, Decreased Appetite Respiratory: Reports: Shortness of Breath, Cough. Denies: Sputum Cardiovascular: Reports: Dyspnea on Exertion, Edema. Denies: Palpitations GI/Abdominal: Reports: Anorexia, Decreased Appetite : Denies: Discharge, Hematuria Musculoskeletal: Reports: Muscle Pain Neurological: Reports: Confusion, Dizziness, Trouble Speaking, Difficulty Walking, Weakness ED EXAM, GENERAL - Physical Exam Exam: See Below Exam Limited By: Other (lethargic, obtunded) Eye Exam: Bilateral Eye: EOMI, Normal Inspection, PERRL (although bilateral constricted to 2 mm) Ears: Normal External Exam, Normal Canal, Hearing Loss. No: Hearing Grossly Normal Ear Exam: Bilateral Ear: Auricle Normal, Canal Normal Nose: Normal Inspection, Normal Mucosa, No Blood Throat/Mouth: Other (dry mucus membranes, partial chewed food in the mouth) Head: Atraumatic, Normocephalic Neck: Normal Inspection, Supple, Non-Tender Respiratory/Chest: Decreased Breath Sounds (bilateral bases, decreased respiratory effort), Crackles Cardiovascular: Normal Peripheral Pulses, Regular Rate, Rhythm, No Murmur GI/Abdominal: Soft, Non-Tender, Abnormal Bowel Sounds (decreased). No: Guarding, Rigid, Rebound, Mass Extremities: Pedal Edema (1+ to the ankles) Neurological: Slow to Respond, Other (minimally responsive, slurred words, moves all extremities on command, opens eyes to speech) #1 Interpretation EKG Date: 06/16/21 Time: 11:33 Rhythm: NSR [place]: Normal P-Wave: Present QRS: Normal ST-T: Elevated (minimally) Comparison: No Change Course - Vital Signs Last Recorded V/S: Last Vital Signs Temp 36.8 C 06/16/21 11:13 Pulse 70 06/16/21 14:07 Resp 27 H 06/16/21 12:15 BP 191/84 H 06/16/21 14:07 Pulse Ox 92 L 06/16/21 12:15 - Orders/Labs/Meds Orders: Active Orders 24 hr Category Date Time Status Cardiac Monitoring [RC] . DIRECTED Care 06/16/21 11:22 Active EKG Documentation Completion [RC] ASDIRECTED Care 06/16/21 11:24 Active Wong Catheter Insertion [Insert Urinary Catheter] [OM. Care 06/16/21 12:30 Ordered PC] Q24H Peripheral IV Care [RC] . DIRECTED Care 06/16/21 11:23 Active Urinary Catheter Assessment [RC] ASDIRECTED Care 06/16/21 12:16 Active Abdomen Pelvis w Cont [CT] Stat Exams 06/16/21 12:12 Taken Ang Chest [CT] Stat Exams 06/16/21 12:12 Ordered Chest 1V Frontal [CR] Stat Exams 06/16/21 11:22 Taken Head wo Cont [CT] Stat Exams 06/16/21 12:12 Taken CULTURE BLOOD [BC] Stat Lab 06/16/21 11:40 Received CULTURE BLOOD [BC] Stat Lab 06/16/21 11:45 Received LACTIC ACID [CHEM] Timed Lab 06/16/21 15:00 Ordered D5 1/2 NS w/ 40 mEq/L KCl 500 ml Med 06/16/21 11:30 Active IV ASDIRECTED Piperacillin/Tazobactam [Zosyn] 3.375 gm Med 06/16/21 13:30 Active Sodium Chloride 0.9% [Normal Saline] 100 ml IV Q6H Sodium Chloride 0.9% [Normal Saline] 1,000 ml Med 06/16/21 13:30 Active IV ASDIRECTED Sodium Chloride 0.9% [Saline Flush] Med 06/16/21 11:22 Active 10 ml FLUSH ASDIRECTED PRN Blood Culture x2 Reflex Set [OM.PC] Stat Oth 06/16/21 11:22 Ordered Peripheral IV Insertion Adult [OM.PC] Routine Ot 06/16/21 11:22 Ordered Medication Orders Potassium Chloride/Dextrose/Sod Cl (D5 1/2 Ns W/ 40 Meq/L Kcl) 500 mls @ 120 mls/hr IV ASDIRECTED ANN-MARIE Last Admin: 06/16/21 11:55 Dose: 120 mls/hr Documented by: AZIZA Sodium Chloride (Normal Saline) 1,000 mls @ 75 mls/hr IV ASDIRECTED ANN-MARIE Last Admin: 06/16/21 13:39 Dose: 999 mls/hr Documented by: AZIZA Piperacillin Sod/Tazobactam (Sod 3.375 gm/ Sodium Chloride) 100 mls @ 200 mls/hr IV Q6H ANN-MARIE Sodium Chloride (Sodium Chloride 0.9% 10 Ml Syringe) 10 ml FLUSH ASDIRECTED PRN PRN Reason: Keep Vein Open Last Admin: 06/16/21 12:03 Dose: 10 ml Documented by: AZIZA Labs: Laboratory Tests 06/16/21 06/16/21 06/16/21 Range/Units 11:19 11:30 11:30 D-Dimer, Quantitative 3720 H (0-400) ng/mL POC ABG pH (7.35-7.45) pH POC ABG pCO2 (35-48) mmHg POC ABG pO2 (83-108) mmHg POC ABG HCO3 (22-26) mmol/L POC ABG Total CO2 (23-27) mmol/L POC ABG O2 Sat (95-98) % POC ABG Base Excess (-2-3) mmol/L O2 Delivery Device Oxygen Flow Rate Lactic Acid (0.4-2.0) mmol/L Magnesium 2.1 (1.8-2.4) mg/dL Troponin I High Sens 36 (<=51) ng/L C-Reactive Protein 16.7 H (<=0.9) mg/dL NT-Pro-B Natriuret Pep 5635 H (0-125) pg/mL Lipase 59 L (73-393) U/L Specimen Type Urine Color Urine Appearance Urine pH (5.0-9.0) Ur Specific Dillon (1.005-1.030) Urine Protein (NEGATIVE) mg/dL Urine Glucose (UA) (NEGATIVE) mg/dL Urine Ketones (NEGATIVE) mg/dL Urine Occult Blood (NEGATIVE) Urine Nitrite (NEGATIVE) Urine Bilirubin (NEGATIVE) Urine Urobilinogen (0.2-1.0) E.U./dL Ur Leukocyte Esterase (NEGATIVE) Urine RBC /HPF Urine WBC /HPF Ur Epithelial Cells /LPF Urine Bacteria (NONE TO FEW) /HPF Urine Mucus (NEGATIVE) /LPF SARS-CoV-2 RNA (JENS) Negative (NEGATIVE) 06/16/21 06/16/21 06/16/21 Range/Units 11:30 11:45 12:25 D-Dimer, Quantitative (0-400) ng/mL POC ABG pH 7.5 H (7.35-7.45) pH POC ABG pCO2 24 L* (35-48) mmHg POC ABG pO2 53 L* (83-108) mmHg POC ABG HCO3 20.6 L (22-26) mmol/L POC ABG Total CO2 21.0 L (23-27) mmol/L POC ABG O2 Sat 91.9 L (95-98) % POC ABG Base Excess 0 (-2-3) mmol/L O2 Delivery Device Room air Oxygen Flow Rate 0 Lactic Acid 4.4 H (0.4-2.0) mmol/L Magnesium (1.8-2.4) mg/dL Troponin I High Sens (<=51) ng/L C-Reactive Protein (<=0.9) mg/dL NT-Pro-B Natriuret Pep (0-125) pg/mL Lipase (73-393) U/L Specimen Type Urincath Urine Color Dark yellow Urine Appearance Clear Urine pH 6.0 (5.0-9.0) Ur Specific Dillon 1.025 (1.005-1.030) Urine Protein 100 H (NEGATIVE) mg/dL Urine Glucose (UA) 100 H (NEGATIVE) mg/dL Urine Ketones Trace H (NEGATIVE) mg/dL Urine Occult Blood Trace-intact H (NEGATIVE) Urine Nitrite Negative (NEGATIVE) Urine Bilirubin Negative (NEGATIVE) Urine Urobilinogen 0.2 (0.2-1.0) E.U./dL Ur Leukocyte Esterase Negative (NEGATIVE) Urine RBC 0-5 /HPF Urine WBC 0-5 /HPF Ur Epithelial Cells Rare /LPF Urine Bacteria Rare (NONE TO FEW) /HPF Urine Mucus Occasional H (NEGATIVE) /LPF SARS-CoV-2 RNA (JENS) (NEGATIVE) sodium 137 WBC 9.2 potassium 32. hemoglobin 14.3 chloride 99 hematocrit 41.8 CO223.2 platelets 182 anon gap 18 glucose 181 BUn17 creatinine 1.1 grfr47 calcium 8.6 protein 7.5 albumin3.5 t bili 1.2 alk phos 150 alt 115 ast 64 CRP 13.6 Meds: Medications Generic Name Dose Route Start Last Admin Trade Name Art PRN Reason Stop Dose Admin Potassium Chloride/Dextrose/Sod Cl 500 mls @ 120 mls/hr 06/16/21 11:30 06/16/21 11:55 D5 1/2 Ns W/ 40 Meq/L Kcl IV 120 mls/hr ASDIRECTED ANN-MARIE Administration Sodium Chloride 1,000 mls @ 75 mls/hr 06/16/21 13:30 06/16/21 13:39 Normal Saline IV 999 mls/hr ASDIRECTED ANN-MARIE Administration Piperacillin Sod/Tazobactam 100 mls @ 200 mls/hr 06/16/21 13:30 Sod 3.375 gm/ Sodium Chloride IV Q6H ANN-MARIE Sodium Chloride 10 ml 06/16/21 11:22 06/16/21 12:03 Sodium Chloride 0.9% 10 Ml Syringe FLUSH 10 ml ASDIRECTED PRN Administration Keep Vein Open Discontinued Medications Generic Name Dose Route Start Last Admin Trade Name Art PRN Reason Stop Dose Admin Atenolol 50 mg 06/16/21 13:56 06/16/21 14:07 Atenolol 50 Mg Tab PO 06/16/21 13:57 50 mg ONETIME ONE Administration Hydralazine HCl 10 mg 06/16/21 13:56 06/16/21 14:07 Hydralazine 10 Mg Tab PO 06/16/21 13:57 10 mg NOW STA Administration Sodium Chloride 1,000 mls @ 500 mls/hr 06/16/21 11:30 06/16/21 11:55 Normal Saline IV 06/16/21 13:29 500 mls/hr ASDIRECTED ANN-MARIE Administration Iopamidol 100 ml 06/16/21 12:29 06/16/21 13:05 Iopamidol 755 Mg/Ml 100 Ml Bottle IVPUSH 06/16/21 12:30 100 ml ONETIME STA Administration Losartan Potassium 100 mg 06/16/21 13:56 06/16/21 14:07 Losartan 50 Mg Tab PO 06/16/21 13:57 100 mg ONETIME ONE Administration - Radiology Interpretation Free Text/Narrative:: chest x-ray with no acute focal consolidation, pleural effusion, or pneumothorax. CT head without contrast with no acute intracranial hemorrhad, midline shift or mass effect. chrnoic microvascular change, brainstem and posterior fossa unremarkable. ct PE protocol chest no evidence of PE, No evidence of acute problem in the chest abdomen or pelvis all studies interpreted by radiology - Re-Assessments/Exams Free Text/Narrative Re-Assessment/Exam: 06/16/21 11.45 Patient appears ill, lethargic. Other than mental status, no other neurological changes and seems to be stable for days. last known well was prior to 06/09 hospitalization. Sats at triage were 90% at rest. Concern for hypoxia with hypercapnea. ABG was ordered as was covid. She is vaccinated but was not tested at hospitalization. Blood cultures x 2. Will cath urine her as had wong while inpatient. review of her old chart revealed a ddimer >5000, negative chest ct for PE, normal venous dopplers of her legs, Echocardiogram without any gross abnormalities, negative head CT. Urine culture with staph homins at the clinic sensitive to macrobid that she is taking. Labs done by her provider prior to Ed visit as documented. 06/16/21 12:37 lactic returns at 4.4. looking for source. weight is 66 kg. will need 1980 ml for sepsis protocol. first liter hanging, second liter will follow. wong catheter in with dark urine. Ct head without, ct chest PE, ct abdomen and pelvis with IV contrast to rule out occult abdominal process 06/16/21 13:36 second liter of fluid started for sepsis protocol. Review of the chart reveals a BNP of 234 on the 6th of this month. recheck today is 5635. Does not appear fluid overloaded. appears clinically dry. 06/16/21 13:58 Patient's blood pressure is high, was due to medications at noon. noted to have high blood pressure while in patient. Will given hydralazine 10 mg po, atenolol 50 mg po and losartan 100 mg repeat lactic at 15:00. zosyn 3.375 IV 06/16/21 14:34 NO source identified, Will admit for sepsis, hypoxia. will treat with IV antibiotics, oxygen therapy, physical therapy. Departure - Departure Time of Disposition: 14:33 Disposition: Admitted As Inpatient 65 Clinical Impression: Hypoxia, Sepsis, Altered mental status, Weakness, Hypokalemia, Elevated d-dimer Hypertension Qualifiers: Hypertension type: primary hypertension Qualified Code(s): I10 - Essential (primary) hypertension CHF (congestive heart failure) Qualifiers: Heart failure type: unspecified Heart failure chronicity: chronic Qualified Code(s): I50.9 - Heart failure, unspecified - Discharge Information *PRESCRIPTION DRUG MONITORING PROGRAM REVIEWED*: Not Applicable *COPY OF PRESCRIPTION DRUG MONITORING REPORT IN PATIENT JHONY: Not Applicable Referrals: Sheila Mckeon NP [Primary Care Provider] - Forms: ED Department Discharge Additional Instructions: Please use ER document as admission H & P Sepsis Event Note (ED) - Evaluation Sepsis Screening Result: Possible Sepsis Risk - Focused Exam Vital Signs: Vital Signs Temp Pulse Pulse Resp BP BP Pulse Ox 06/16/21 14:07 70 191/84 H 06/16/21 12:15 72 27 H 149/72 H 92 L 06/16/21 12:00 72 32 H 144/77 H 91 L 06/16/21 11:45 71 32 H 160/80 H 90 L 06/16/21 11:30 72 29 H 154/71 H 92 L 06/16/21 11:13 36.8 C 72 24 H 145/77 H 91 L - My Orders Last 24 Hours: My Active Orders 06/16/21 11:22 Cardiac Monitoring [RC] . DIRECTED Chest 1V Frontal [CR] Stat Sodium Chloride 0.9% [Saline Flush] 10 ml FLUSH ASDIRECTED PRN Blood Culture x2 Reflex Set [OM.PC] Stat Peripheral IV Insertion Adult [OM.PC] Routine 06/16/21 11:23 Peripheral IV Care [RC] . DIRECTED 06/16/21 11:24 EKG Documentation Completion [RC] ASDIRECTED 06/16/21 11:30 D5 1/2 NS w/ 40 mEq/L KCl 500 ml IV ASDIRECTED 06/16/21 11:40 CULTURE BLOOD [BC] Stat 06/16/21 11:45 CULTURE BLOOD [BC] Stat 06/16/21 12:12 Abdomen Pelvis w Cont [CT] Stat Ang Chest [CT] Stat Head wo Cont [CT] Stat 06/16/21 12:16 Urinary Catheter Assessment [RC] ASDIRECTED 06/16/21 12:30 Wong Catheter Insertion [Insert Urinary Catheter] [OM.PC] Q24H 06/16/21 13:30 Piperacillin/Tazobactam [Zosyn] 3.375 gm Sodium Chloride 0.9% [Normal Saline] 100 ml IV Q6H Sodium Chloride 0.9% [Normal Saline] 1,000 ml IV ASDIRECTED 06/16/21 15:00 LACTIC ACID [CHEM] Timed - Assessment/Plan Last 24 Hours: My Active Orders 06/16/21 11:22 Cardiac Monitoring [RC] . DIRECTED Chest 1V Frontal [CR] Stat Sodium Chloride 0.9% [Saline Flush] 10 ml FLUSH ASDIRECTED PRN Blood Culture x2 Reflex Set [OM.PC] Stat Peripheral IV Insertion Adult [OM.PC] Routine 06/16/21 11:23 Peripheral IV Care [RC] . DIRECTED 06/16/21 11:24 EKG Documentation Completion [RC] ASDIRECTED 06/16/21 11:30 D5 1/2 NS w/ 40 mEq/L KCl 500 ml IV ASDIRECTED 06/16/21 11:40 CULTURE BLOOD [BC] Stat 06/16/21 11:45 CULTURE BLOOD [BC] Stat 06/16/21 12:12 Abdomen Pelvis w Cont [CT] Stat Ang Chest [CT] Stat Head wo Cont [CT] Stat 06/16/21 12:16 Urinary Catheter Assessment [RC] ASDIRECTED 06/16/21 12:30 Wong Catheter Insertion [Insert Urinary Catheter] [OM.PC] Q24H 06/16/21 13:30 Piperacillin/Tazobactam [Zosyn] 3.375 gm Sodium Chloride 0.9% [Normal Saline] 100 ml IV Q6H Sodium Chloride 0.9% [Normal Saline] 1,000 ml IV ASDIRECTED 06/16/21 15:00 LACTIC ACID [CHEM] Timed
[2021-06-16] MEDS ORDERED: Iopamidol 755 Mg/ML 100 ML Bottle IVPUSH STA (12:29)
[2021-06-16] MEDS ORDERED: Piperacillin/Tazobactam 3.375 GM in Sodium Chloride 0.9% 100 ML IV SCH ×2 (13:30→21:00)
[2021-06-16] MEDS ORDERED: Atenolol 50 MG Tab PO ONE (13:56)
[2021-06-16] MEDS ORDERED: Losartan 50 MG Tab PO ONE (13:56)
[2021-06-16] MEDS ORDERED: hydrALAZINE 10 MG Tab PO STA (13:56)
[2021-06-16] MEDS ORDERED: Acetaminophen 325 MG Tab PO PRN (15:33)
[2021-06-16] MEDS ORDERED: Bisacodyl 5 MG Tab PO PRN (15:33)
[2021-06-16] MEDS ORDERED: Albuterol/Ipratropium 3.0-0.5 MG/3 ML Neb Soln NEB PRN (15:33)
[2021-06-16] MEDS ORDERED: Ondansetron 4 MG Tab.DIS PO PRN (15:33)
[2021-06-16] MEDS ORDERED: Ondansetron 4 MG/2 ML SDV IVPUSH PRN (15:33)
[2021-06-16] MEDS ORDERED: Albuterol 0.083% 2.5 MG/3 ML Neb Soln NEB PRN (15:33)
[2021-06-16] MEDS ORDERED: Polyvinyl Alcohol 1.4% Ophth Soln 15 ML Bottle EYEBOTH PRN (15:38)
[2021-06-16] MEDS: hydrALAZINE 10 MG Tab PO SCH (17:08)
[2021-06-16] MEDS: Lactobacillus Rhamnosus GG (Probiotic) Cap PO SCH (17:08)
[2021-06-16] MEDS: Enoxaparin 30 MG/0.3 ML Syringe SUBCUT SCH (17:08)
[2021-06-16] MEDS: Polyvinyl Alcohol 1.4% Ophth Soln 15 ML Bottle EYEBOTH SCH (17:42)
[2021-06-16] MEDS ORDERED: Piperacillin/Tazobactam 2.25 GM in Sodium Chloride 0.9% 100 ML IV SCH ×2 (20:15→21:00)
[2021-06-16] MEDS: Atenolol 50 MG Tab PO SCH (20:31)
[2021-06-16] MEDS: Pantoprazole 40 MG Vial IV SCH (20:31)
[2021-06-16] MEDS: Piperacillin/Tazobactam 2.25 GM in Sodium Chloride 0.9% 100 ML IV SCH ×2 (20:31→22:01)
[2021-06-17] MEDS: Piperacillin/Tazobactam 2.25 GM in Sodium Chloride 0.9% 100 ML IV SCH ×5 (03:03→21:26)
[2021-06-17] MEDS ORDERED: Furosemide 20 MG/2 ML VIAL IVPUSH ONE (06:54)
[2021-06-17] MEDS: Sodium Chloride 0.9% 10 ML Syringe FLUSH PRN ×5 (07:15→15:44)
[2021-06-17 07:36] LABS: PCO2 ARTERIAL,POC 28 mmHg (35-48)
[2021-06-17] MEDS ORDERED: Potassium Bicarbonate/Cit Ac 20 MEQ Effervescent Tab PO ONE (07:37)
[2021-06-17 07:39] LABS: ANION GAP 12.5 meq/L (7-15)
[2021-06-17] MEDS ORDERED: Sodium Chloride 0.9% 500 ML IV SCH (07:45)
[2021-06-17] MEDS ORDERED: Hydrocortisone Sodium Succinate 100 MG/2 ML SDV IVPUSH ONE (08:04)
[2021-06-17] MEDS: Potassium Chloride Riders 10 MEQ in Premix Bag 1 BAG IV SCH ×4 (08:26→12:01)
--- NOTE | 2021-06-17 08:34 | PCM.PN ---
- General Info Date of Service: 06/17/21 Admission Dx/Problem (Free Text): HYPOXIA, AMS, SEPSIS Subjective Update: Patient was readmitted last night for hypoxia, elevated lactic acid level, alt ered mental status, possible sepsis without source. Patient had an uneventful night. Was found to have hypokalemia and was treated with IV potssium and fluid for sepsis along with zosyn. Limited oral intake. limited output. Not on a diuretic. Family status her mental status has greatly declined in the last two weeks, from interactive, walking and feeding herself to this. No fevers. Maintaining sats on 2lpm. slight wet cough today. Still minimally interactive. - Review of Systems General: Reports: Weakness, Fatigue. Denies: Fever, Malaise, Chills HEENT: Reports: No Symptoms. Denies: Headaches, Sinus Congestion, Sore Throat Pulmonary: Reports: Cough (minimal wet sound today) Cardiovascular: Reports: No Symptoms. Denies: Chest Pain, Dyspnea on Exertion Gastrointestinal: Reports: No Symptoms. Denies: Abdominal Pain Neurological: Reports: Confusion, Trouble Speaking, Weakness - Patient Data Vitals - Most Recent: Last Vital Signs Temp 36.5 C 06/17/21 07:18 Pulse 70 06/17/21 07:18 Resp 28 H 06/17/21 07:18 BP 197/80 H 06/17/21 07:18 Pulse Ox 94 L 06/17/21 07:18 Weight - Most Recent: 66.224 kg I&O - Last 24 Hours: Intake & Output 06/16/21 06/17/21 06/17/21 22:59 06:59 14:59 Intake Total 1950 430 Output Total 1075 300 Balance 875 130 Lab Results Last 24 Hours: Laboratory Results - last 24 hr 06/16/21 06/16/21 06/16/21 Range/Units 11:19 11:30 11:30 WBC (4.0-10.2) K/uL RBC (3.77-5.09) M/uL Hgb (11.7-15.5) g/dL Hct (34.0-46.0) % MCV (84.0-98.0) fL MCH (28.2-33.3) pg MCHC (31.7-36.0) g/dL RDW (11.2-14.1) % Plt Count (150-350) K/uL Neut % (Auto) (45.0-80.0) % Lymph % (Auto) (10.0-50.0) % Jones % (Auto) (2.0-14.0) % Eos % (Auto) (0.0-5.0) % Baso % (Auto) (0.0-2.0) % Neut # (Auto) (1.40-7.00) K/uL Lymph # (Auto) (0.50-3.50) K/uL Jones # (Auto) (0.00-1.00) K/uL Eos # (Auto) (0.00-0.50) K/uL Baso # (Auto) (0.00-0.20) K/uL D-Dimer, Quantitative 3720 H (0-400) ng/mL POC ABG pH (7.35-7.45) pH POC ABG pCO2 (35-48) mmHg POC ABG pO2 (83-108) mmHg POC ABG HCO3 (22-26) mmol/L POC ABG Total CO2 (23-27) mmol/L POC ABG O2 Sat (95-98) % POC ABG Base Excess (-2-3) mmol/L O2 Delivery Device Oxygen Flow Rate Sodium (136-145) mmol/L Potassium (3.5-5.1) mmol/L Chloride (98-107) mmol/L Carbon Dioxide (21.0-32.0) mmol/L Anion Gap (7-15) meq/L BUN (7-18) mg/dL Creatinine (0.51-1.17) mg/dL Est Cr Clr Drug Dosing mL/min Estimated GFR (MDRD) mL/min Glucose (70-99) mg/dL Lactic Acid (0.4-2.0) mmol/L Calcium (8.5-10.1) mg/dL Magnesium 2.1 (1.8-2.4) mg/dL Ammonia (11-32) umol/L Troponin I High Sens 36 (<=51) ng/L C-Reactive Protein 16.7 H (<=0.9) mg/dL NT-Pro-B Natriuret Pep 5635 H (0-125) pg/mL Lipase 59 L (73-393) U/L Specimen Type Urine Color Urine Appearance Urine pH (5.0-9.0) Ur Specific [place] (1.005-1.030) Urine Protein (NEGATIVE) mg/dL Urine Glucose (UA) (NEGATIVE) mg/dL Urine Ketones (NEGATIVE) mg/dL Urine Occult Blood (NEGATIVE) Urine Nitrite (NEGATIVE) Urine Bilirubin (NEGATIVE) Urine Urobilinogen (0.2-1.0) E.U./dL Ur Leukocyte Esterase (NEGATIVE) Urine RBC /HPF Urine WBC /HPF Ur Epithelial Cells /LPF Urine Bacteria (NONE TO FEW) /HPF Urine Mucus (NEGATIVE) /LPF SARS-CoV-2 RNA (JENS) Negative (NEGATIVE) 06/16/21 06/16/21 06/16/21 Range/Units 11:30 11:45 12:25 WBC (4.0-10.2) K/uL RBC (3.77-5.09) M/uL Hgb (11.7-15.5) g/dL Hct (34.0-46.0) % MCV (84.0-98.0) fL MCH (28.2-33.3) pg MCHC (31.7-36.0) g/dL RDW (11.2-14.1) % Plt Count (150-350) K/uL Neut % (Auto) (45.0-80.0) % Lymph % (Auto) (10.0-50.0) % Jones % (Auto) (2.0-14.0) % Eos % (Auto) (0.0-5.0) % Baso % (Auto) (0.0-2.0) % Neut # (Auto) (1.40-7.00) K/uL Lymph # (Auto) (0.50-3.50) K/uL Jones # (Auto) (0.00-1.00) K/uL Eos # (Auto) (0.00-0.50) K/uL Baso # (Auto) (0.00-0.20) K/uL D-Dimer, Quantitative (0-400) ng/mL POC ABG pH 7.5 H (7.35-7.45) pH POC ABG pCO2 24 L* (35-48) mmHg POC ABG pO2 53 L* (83-108) mmHg POC ABG HCO3 20.6 L (22-26) mmol/L POC ABG Total CO2 21.0 L (23-27) mmol/L POC ABG O2 Sat 91.9 L (95-98) % POC ABG Base Excess 0 (-2-3) mmol/L O2 Delivery Device Room air Oxygen Flow Rate 0 Sodium (136-145) mmol/L Potassium (3.5-5.1) mmol/L Chloride (98-107) mmol/L Carbon Dioxide (21.0-32.0) mmol/L Anion Gap (7-15) meq/L BUN (7-18) mg/dL Creatinine (0.51-1.17) mg/dL Est Cr Clr Drug Dosing mL/min Estimated GFR (MDRD) mL/min Glucose (70-99) mg/dL Lactic Acid 4.4 H (0.4-2.0) mmol/L Calcium (8.5-10.1) mg/dL Magnesium (1.8-2.4) mg/dL Ammonia (11-32) umol/L Troponin I High Sens (<=51) ng/L C-Reactive Protein (<=0.9) mg/dL NT-Pro-B Natriuret Pep (0-125) pg/mL Lipase (73-393) U/L Specimen Type Urincath Urine Color Dark yellow Urine Appearance Clear Urine pH 6.0 (5.0-9.0) Ur Specific [place] 1.025 (1.005-1.030) Urine Protein 100 H (NEGATIVE) mg/dL Urine Glucose (UA) 100 H (NEGATIVE) mg/dL Urine Ketones Trace H (NEGATIVE) mg/dL Urine Occult Blood Trace-intact H (NEGATIVE) Urine Nitrite Negative (NEGATIVE) Urine Bilirubin Negative (NEGATIVE) Urine Urobilinogen 0.2 (0.2-1.0) E.U./dL Ur Leukocyte Esterase Negative (NEGATIVE) Urine RBC 0-5 /HPF Urine WBC 0-5 /HPF Ur Epithelial Cells Rare /LPF Urine Bacteria Rare (NONE TO FEW) /HPF Urine Mucus Occasional H (NEGATIVE) /LPF SARS-CoV-2 RNA (JENS) (NEGATIVE) 06/16/21 06/16/21 06/17/21 Range/Units 14:56 14:56 07:02 WBC 4.5 (4.0-10.2) K/uL RBC 4.20 (3.77-5.09) M/uL Hgb 12.7 D (11.7-15.5) g/dL Hct 37.6 (34.0-46.0) % MCV 89.5 (84.0-98.0) fL MCH 30.2 (28.2-33.3) pg MCHC 33.8 (31.7-36.0) g/dL RDW 14.1 (11.2-14.1) % Plt Count 127 L (150-350) K/uL Neut % (Auto) 85.0 H (45.0-80.0) % Lymph % (Auto) 9.3 L (10.0-50.0) % Jones % (Auto) 5.1 (2.0-14.0) % Eos % (Auto) 0.4 (0.0-5.0) % Baso % (Auto) 0.2 (0.0-2.0) % Neut # (Auto) 3.82 (1.40-7.00) K/uL Lymph # (Auto) 0.42 L (0.50-3.50) K/uL Jones # (Auto) 0.23 (0.00-1.00) K/uL Eos # (Auto) 0.02 (0.00-0.50) K/uL Baso # (Auto) 0.01 (0.00-0.20) K/uL D-Dimer, Quantitative (0-400) ng/mL POC ABG pH (7.35-7.45) pH POC ABG pCO2 (35-48) mmHg POC ABG pO2 (83-108) mmHg POC ABG HCO3 (22-26) mmol/L POC ABG Total CO2 (23-27) mmol/L POC ABG O2 Sat (95-98) % POC ABG Base Excess (-2-3) mmol/L O2 Delivery Device Oxygen Flow Rate Sodium (136-145) mmol/L Potassium (3.5-5.1) mmol/L Chloride (98-107) mmol/L Carbon Dioxide (21.0-32.0) mmol/L Anion Gap (7-15) meq/L BUN (7-18) mg/dL Creatinine (0.51-1.17) mg/dL Est Cr Clr Drug Dosing mL/min Estimated GFR (MDRD) mL/min Glucose (70-99) mg/dL Lactic Acid 3.8 H (0.4-2.0) mmol/L Calcium (8.5-10.1) mg/dL Magnesium (1.8-2.4) mg/dL Ammonia < 10 L (11-32) umol/L Troponin I High Sens (<=51) ng/L C-Reactive Protein (<=0.9) mg/dL NT-Pro-B Natriuret Pep (0-125) pg/mL Lipase (73-393) U/L Specimen Type Urine Color Urine Appearance Urine pH (5.0-9.0) Ur Specific [place] (1.005-1.030) Urine Protein (NEGATIVE) mg/dL Urine Glucose (UA) (NEGATIVE) mg/dL Urine Ketones (NEGATIVE) mg/dL Urine Occult Blood (NEGATIVE) Urine Nitrite (NEGATIVE) Urine Bilirubin (NEGATIVE) Urine Urobilinogen (0.2-1.0) E.U./dL Ur Leukocyte Esterase (NEGATIVE) Urine RBC /HPF Urine WBC /HPF Ur Epithelial Cells /LPF Urine Bacteria (NONE TO FEW) /HPF Urine Mucus (NEGATIVE) /LPF SARS-CoV-2 RNA (JENS) (NEGATIVE) 06/17/21 06/17/21 Range/Units 07:02 07:05 WBC (4.0-10.2) K/uL RBC (3.77-5.09) M/uL Hgb (11.7-15.5) g/dL Hct (34.0-46.0) % MCV (84.0-98.0) fL MCH (28.2-33.3) pg MCHC (31.7-36.0) g/dL RDW (11.2-14.1) % Plt Count (150-350) K/uL Neut % (Auto) (45.0-80.0) % Lymph % (Auto) (10.0-50.0) % Jones % (Auto) (2.0-14.0) % Eos % (Auto) (0.0-5.0) % Baso % (Auto) (0.0-2.0) % Neut # (Auto) (1.40-7.00) K/uL Lymph # (Auto) (0.50-3.50) K/uL Jones # (Auto) (0.00-1.00) K/uL Eos # (Auto) (0.00-0.50) K/uL Baso # (Auto) (0.00-0.20) K/uL D-Dimer, Quantitative (0-400) ng/mL POC ABG pH 7.5 H (7.35-7.45) pH POC ABG pCO2 28 L* (35-48) mmHg POC ABG pO2 75 L (83-108) mmHg POC ABG HCO3 21.7 L (22-26) mmol/L POC ABG Total CO2 22.2 L (23-27) mmol/L POC ABG O2 Sat 96.3 (95-98) % POC ABG Base Excess -0 (-2-3) mmol/L O2 Delivery Device Nasal cannula Oxygen Flow Rate 0.28 Sodium 139 (136-145) mmol/L Potassium 2.7 L* (3.5-5.1) mmol/L Chloride 104 (98-107) mmol/L Carbon Dioxide 25.2 (21.0-32.0) mmol/L Anion Gap 12.5 (7-15) meq/L BUN 14 (7-18) mg/dL Creatinine 0.92 (0.51-1.17) mg/dL Est Cr Clr Drug Dosing 31.53 mL/min Estimated GFR (MDRD) 58 mL/min Glucose 119 H (70-99) mg/dL Lactic Acid (0.4-2.0) mmol/L Calcium 7.7 L (8.5-10.1) mg/dL Magnesium (1.8-2.4) mg/dL Ammonia (11-32) umol/L Troponin I High Sens 27 (<=51) ng/L C-Reactive Protein (<=0.9) mg/dL NT-Pro-B Natriuret Pep (0-125) pg/mL Lipase (73-393) U/L Specimen Type Urine Color Urine Appearance Urine pH (5.0-9.0) Ur Specific [place] (1.005-1.030) Urine Protein (NEGATIVE) mg/dL Urine Glucose (UA) (NEGATIVE) mg/dL Urine Ketones (NEGATIVE) mg/dL Urine Occult Blood (NEGATIVE) Urine Nitrite (NEGATIVE) Urine Bilirubin (NEGATIVE) Urine Urobilinogen (0.2-1.0) E.U./dL Ur Leukocyte Esterase (NEGATIVE) Urine RBC /HPF Urine WBC /HPF Ur Epithelial Cells /LPF Urine Bacteria (NONE TO FEW) /HPF Urine Mucus (NEGATIVE) /LPF SARS-CoV-2 RNA (JENS) (NEGATIVE) Med Orders - Current: Current Medications Acetaminophen (Acetaminophen 325 Mg Tab) 650 mg PO Q4H PRN PRN Reason: Pain (Mild 1-3)/fever Albuterol (Albuterol 0.083% 2.5 Mg/3 Ml Neb Soln) 2.5 mg NEB Q2H PRN PRN Reason: Shortness Of Breath/wheezing Albuterol/Ipratropium (Albuterol/Ipratropium 3.0-0.5 Mg/3 Ml Neb Soln) 3 ml NEB Q4H PRN PRN Reason: Dyspnea Artificial Tears (Polyvinyl Alcohol 1.4% Ophth Soln 15 Ml Bottle) 0 ml EYEBOTH Q1H PRN PRN Reason: Dry Eyes Artificial Tears (Polyvinyl Alcohol 1.4% Ophth Soln 15 Ml Bottle) 0 ml EYEBOTH BID [facility] Last Admin: 06/16/21 17:42 Dose: 2 drop Documented by: Atenolol (Atenolol 50 Mg Tab) 50 mg PO BID@12,20 [facility] Last Admin: 06/16/21 20:31 Dose: 50 mg Documented by: Bisacodyl (Bisacodyl 5 Mg Tab) 5 mg PO DAILY PRN PRN Reason: Constipation Enoxaparin Sodium (Enoxaparin 30 Mg/0.3 Ml Syringe) 30 mg SUBCUT DAILY [facility] Last Admin: 06/16/21 17:08 Dose: 30 mg Documented by: Hydralazine HCl (Hydralazine 10 Mg Tab) 10 mg PO TID [facility] Last Admin: 06/16/21 17:08 Dose: 10 mg Documented by: Hydrochlorothiazide (Hydrochlorothiazide 25 Mg Tab) 12.5 mg PO DAILY [facility] Potassium Chloride/Dextrose/Sod Cl (D5 1/2 Ns W/ 40 Meq/L Kcl) 500 mls @ 120 mls/hr IV ASDIRECTED [facility] Last Admin: 06/16/21 11:55 Dose: 120 mls/hr Documented by: Piperacillin Sod/Tazobactam (Sod 2.25 gm/ Sodium Chloride) 100 mls @ 200 mls/hr IV Q6H [facility] Last Admin: 06/17/21 03:03 Dose: 200 mls/hr Documented by: Sodium Chloride (Normal Saline) 500 mls @ 100 mls/hr IV ASDIRECTED [facility] Last Admin: 06/17/21 08:26 Dose: 100 mls/hr Documented by: Potassium Chloride 10 meq/ (Premix) 50 mls @ 50 mls/hr IV Q1H [facility] Stop: 06/17/21 11:59 Last Admin: 06/17/21 08:26 Dose: 50 mls/hr Documented by: Lactobacillus Rhamnosus (Lactobacillus Rhamnosus Gg (Probiotic) Cap) 1 cap PO DAILY [facility] Last Admin: 06/16/21 17:08 Dose: 1 cap Documented by: Losartan Potassium (Losartan 50 Mg Tab) 100 mg PO DAILY@12 [facility] Ondansetron HCl (Ondansetron 4 Mg Tab.Dis) 4 mg PO Q4H PRN PRN Reason: Nausea/Vomiting Ondansetron HCl (Ondansetron 4 Mg/2 Ml Sdv) 4 mg IVPUSH Q4H PRN PRN Reason: Nausea/Vomiting Pantoprazole Sodium (Pantoprazole 40 Mg Vial) 40 mg IV Q12HR [facility] Last Admin: 06/16/21 20:31 Dose: 40 mg Documented by: Sodium Chloride (Sodium Chloride 0.9% 10 Ml Syringe) 10 ml FLUSH ASDIRECTED PRN PRN Reason: Keep Vein Open Last Admin: 06/17/21 08:27 Dose: 10 ml Documented by: Discontinued Medications Atenolol (Atenolol 50 Mg Tab) 50 mg PO ONETIME ONE Stop: 06/16/21 13:57 Last Admin: 06/16/21 14:07 Dose: 50 mg Documented by: Furosemide (Furosemide 20 Mg/2 Ml Vial) 20 mg IVPUSH ONETIME ONE Stop: 06/17/21 06:55 Last Admin: 06/17/21 07:15 Dose: 20 mg Documented by: Hydralazine HCl (Hydralazine 10 Mg Tab) 10 mg PO NOW STA Stop: 06/16/21 13:57 Last Admin: 06/16/21 14:07 Dose: 10 mg Documented by: Hydrocortisone Sodium Succinate (Hydrocortisone Sodium Succinate 100 Mg/2 Ml Sdv) 100 mg IVPUSH ONETIME ONE Stop: 06/17/21 08:05 Sodium Chloride (Normal Saline) 1,000 mls @ 500 mls/hr IV ASDIRECTED [facility] Stop: 06/16/21 13:29 Last Admin: 06/16/21 11:55 Dose: 500 mls/hr Documented by: Sodium Chloride (Normal Saline) 1,000 mls @ 75 mls/hr IV ASDIRECTED [facility] Last Admin: 06/16/21 13:39 Dose: 999 mls/hr Documented by: Piperacillin Sod/Tazobactam (Sod 3.375 gm/ Sodium Chloride) 100 mls @ 200 mls/hr IV Q6H [facility] Last Admin: 06/16/21 15:00 Dose: 200 mls/hr Documented by: Piperacillin Sod/Tazobactam (Sod 3.375 gm/ Sodium Chloride) 100 mls @ 200 mls/hr IV Q6H [facility] Piperacillin Sod/Tazobactam (Sod 2.25 gm/ Sodium Chloride) 100 mls @ 200 mls/hr IV Q6H [facility] Piperacillin Sod/Tazobactam (Sod 2.25 gm/ Sodium Chloride) 100 mls @ 200 mls/hr IV Q6H [facility] Piperacillin Sod/Tazobactam (Sod 2.25 gm/ Sodium Chloride) 100 mls @ 200 mls/hr IV Q6H [facility] Last Admin: 06/17/21 03:08 Dose: Not Given Documented by: Iopamidol (Iopamidol 755 Mg/Ml 100 Ml Bottle) 100 ml IVPUSH ONETIME STA Stop: 06/16/21 12:30 Last Admin: 06/16/21 13:05 Dose: 100 ml Documented by: Losartan Potassium (Losartan 50 Mg Tab) 100 mg PO ONETIME ONE Stop: 06/16/21 13:57 Last Admin: 06/16/21 14:07 Dose: 100 mg Documented by: Potassium Bicarbonate (Potassium Bicarbonate/Cit Ac 20 Meq Effervescent Tab) 40 meq PO ONETIME ONE Stop: 06/17/21 07:38 - Exam Quality Assessment: Supplemental Oxygen Urinary Catheter Total Time: 0Days 0Hours General: Other (awake to voice, but limited responses) HEENT: Pupils Equal, Pupils Reactive, EOMI Lungs: Crackles (bases increased since yesterday) Cardiovascular: Regular Rate, Regular Rhythm GI/Abdominal Exam: Soft, Non-Tender Extremities: Normal Inspection, Non-Tender, No Pedal Edema, Normal Capillary Refill Neurological: Other (says few words, speech more clear today, more alert today, able to get and hold water for self today) - Patient Data Lab Results Last 24 hrs: Laboratory Results - last 24 hr 06/16/21 06/16/21 06/16/21 Range/Units 11:19 11:30 11:30 WBC (4.0-10.2) K/uL RBC (3.77-5.09) M/uL Hgb (11.7-15.5) g/dL Hct (34.0-46.0) % MCV (84.0-98.0) fL MCH (28.2-33.3) pg MCHC (31.7-36.0) g/dL RDW (11.2-14.1) % Plt Count (150-350) K/uL Neut % (Auto) (45.0-80.0) % Lymph % (Auto) (10.0-50.0) % Jones % (Auto) (2.0-14.0) % Eos % (Auto) (0.0-5.0) % Baso % (Auto) (0.0-2.0) % Neut # (Auto) (1.40-7.00) K/uL Lymph # (Auto) (0.50-3.50) K/uL Jones # (Auto) (0.00-1.00) K/uL Eos # (Auto) (0.00-0.50) K/uL Baso # (Auto) (0.00-0.20) K/uL D-Dimer, Quantitative 3720 H (0-400) ng/mL POC ABG pH (7.35-7.45) pH POC ABG pCO2 (35-48) mmHg POC ABG pO2 (83-108) mmHg POC ABG HCO3 (22-26) mmol/L POC ABG Total CO2 (23-27) mmol/L POC ABG O2 Sat (95-98) % POC ABG Base Excess (-2-3) mmol/L O2 Delivery Device Oxygen Flow Rate Sodium (136-145) mmol/L Potassium (3.5-5.1) mmol/L Chloride (98-107) mmol/L Carbon Dioxide (21.0-32.0) mmol/L Anion Gap (7-15) meq/L BUN (7-18) mg/dL Creatinine (0.51-1.17) mg/dL Est Cr Clr Drug Dosing mL/min Estimated GFR (MDRD) mL/min Glucose (70-99) mg/dL Lactic Acid (0.4-2.0) mmol/L Calcium (8.5-10.1) mg/dL Magnesium 2.1 (1.8-2.4) mg/dL Ammonia (11-32) umol/L Troponin I High Sens 36 (<=51) ng/L C-Reactive Protein 16.7 H (<=0.9) mg/dL NT-Pro-B Natriuret Pep 5635 H (0-125) pg/mL Lipase 59 L (73-393) U/L Specimen Type Urine Color Urine Appearance Urine pH (5.0-9.0) Ur Specific [place] (1.005-1.030) Urine Protein (NEGATIVE) mg/dL Urine Glucose (UA) (NEGATIVE) mg/dL Urine Ketones (NEGATIVE) mg/dL Urine Occult Blood (NEGATIVE) Urine Nitrite (NEGATIVE) Urine Bilirubin (NEGATIVE) Urine Urobilinogen (0.2-1.0) E.U./dL Ur Leukocyte Esterase (NEGATIVE) Urine RBC /HPF Urine WBC /HPF Ur Epithelial Cells /LPF Urine Bacteria (NONE TO FEW) /HPF Urine Mucus (NEGATIVE) /LPF SARS-CoV-2 RNA (JENS) Negative (NEGATIVE) 06/16/21 06/16/21 06/16/21 Range/Units 11:30 11:45 12:25 WBC (4.0-10.2) K/uL RBC (3.77-5.09) M/uL Hgb (11.7-15.5) g/dL Hct (34.0-46.0) % MCV (84.0-98.0) fL MCH (28.2-33.3) pg MCHC (31.7-36.0) g/dL RDW (11.2-14.1) % Plt Count (150-350) K/uL Neut % (Auto) (45.0-80.0) % Lymph % (Auto) (10.0-50.0) % Jones % (Auto) (2.0-14.0) % Eos % (Auto) (0.0-5.0) % Baso % (Auto) (0.0-2.0) % Neut # (Auto) (1.40-7.00) K/uL Lymph # (Auto) (0.50-3.50) K/uL Jones # (Auto) (0.00-1.00) K/uL Eos # (Auto) (0.00-0.50) K/uL Baso # (Auto) (0.00-0.20) K/uL D-Dimer, Quantitative (0-400) ng/mL POC ABG pH 7.5 H (7.35-7.45) pH POC ABG pCO2 24 L* (35-48) mmHg POC ABG pO2 53 L* (83-108) mmHg POC ABG HCO3 20.6 L (22-26) mmol/L POC ABG Total CO2 21.0 L (23-27) mmol/L POC ABG O2 Sat 91.9 L (95-98) % POC ABG Base Excess 0 (-2-3) mmol/L O2 Delivery Device Room air Oxygen Flow Rate 0 Sodium (136-145) mmol/L Potassium (3.5-5.1) mmol/L Chloride (98-107) mmol/L Carbon Dioxide (21.0-32.0) mmol/L Anion Gap (7-15) meq/L BUN (7-18) mg/dL Creatinine (0.51-1.17) mg/dL Est Cr Clr Drug Dosing mL/min Estimated GFR (MDRD) mL/min Glucose (70-99) mg/dL Lactic Acid 4.4 H (0.4-2.0) mmol/L Calcium (8.5-10.1) mg/dL Magnesium (1.8-2.4) mg/dL Ammonia (11-32) umol/L Troponin I High Sens (<=51) ng/L C-Reactive Protein (<=0.9) mg/dL NT-Pro-B Natriuret Pep (0-125) pg/mL Lipase (73-393) U/L Specimen Type Urincath Urine Color Dark yellow Urine Appearance Clear Urine pH 6.0 (5.0-9.0) Ur Specific [place] 1.025 (1.005-1.030) Urine Protein 100 H (NEGATIVE) mg/dL Urine Glucose (UA) 100 H (NEGATIVE) mg/dL Urine Ketones Trace H (NEGATIVE) mg/dL Urine Occult Blood Trace-intact H (NEGATIVE) Urine Nitrite Negative (NEGATIVE) Urine Bilirubin Negative (NEGATIVE) Urine Urobilinogen 0.2 (0.2-1.0) E.U./dL Ur Leukocyte Esterase Negative (NEGATIVE) Urine RBC 0-5 /HPF Urine WBC 0-5 /HPF Ur Epithelial Cells Rare /LPF Urine Bacteria Rare (NONE TO FEW) /HPF Urine Mucus Occasional H (NEGATIVE) /LPF SARS-CoV-2 RNA (JENS) (NEGATIVE) 06/16/21 06/16/21 06/17/21 Range/Units 14:56 14:56 07:02 WBC 4.5 (4.0-10.2) K/uL RBC 4.20 (3.77-5.09) M/uL Hgb 12.7 D (11.7-15.5) g/dL Hct 37.6 (34.0-46.0) % MCV 89.5 (84.0-98.0) fL MCH 30.2 (28.2-33.3) pg MCHC 33.8 (31.7-36.0) g/dL RDW 14.1 (11.2-14.1) % Plt Count 127 L (150-350) K/uL Neut % (Auto) 85.0 H (45.0-80.0) % Lymph % (Auto) 9.3 L (10.0-50.0) % Jones % (Auto) 5.1 (2.0-14.0) % Eos % (Auto) 0.4 (0.0-5.0) % Baso % (Auto) 0.2 (0.0-2.0) % Neut # (Auto) 3.82 (1.40-7.00) K/uL Lymph # (Auto) 0.42 L (0.50-3.50) K/uL Jones # (Auto) 0.23 (0.00-1.00) K/uL Eos # (Auto) 0.02 (0.00-0.50) K/uL Baso # (Auto) 0.01 (0.00-0.20) K/uL D-Dimer, Quantitative (0-400) ng/mL POC ABG pH (7.35-7.45) pH POC ABG pCO2 (35-48) mmHg POC ABG pO2 (83-108) mmHg POC ABG HCO3 (22-26) mmol/L POC ABG Total CO2 (23-27) mmol/L POC ABG O2 Sat (95-98) % POC ABG Base Excess (-2-3) mmol/L O2 Delivery Device Oxygen Flow Rate Sodium (136-145) mmol/L Potassium (3.5-5.1) mmol/L Chloride (98-107) mmol/L Carbon Dioxide (21.0-32.0) mmol/L Anion Gap (7-15) meq/L BUN (7-18) mg/dL Creatinine (0.51-1.17) mg/dL Est Cr Clr Drug Dosing mL/min Estimated GFR (MDRD) mL/min Glucose (70-99) mg/dL Lactic Acid 3.8 H (0.4-2.0) mmol/L Calcium (8.5-10.1) mg/dL Magnesium (1.8-2.4) mg/dL Ammonia < 10 L (11-32) umol/L Troponin I High Sens (<=51) ng/L C-Reactive Protein (<=0.9) mg/dL NT-Pro-B Natriuret Pep (0-125) pg/mL Lipase (73-393) U/L Specimen Type Urine Color Urine Appearance Urine pH (5.0-9.0) Ur Specific [place] (1.005-1.030) Urine Protein (NEGATIVE) mg/dL Urine Glucose (UA) (NEGATIVE) mg/dL Urine Ketones (NEGATIVE) mg/dL Urine Occult Blood (NEGATIVE) Urine Nitrite (NEGATIVE) Urine Bilirubin (NEGATIVE) Urine Urobilinogen (0.2-1.0) E.U./dL Ur Leukocyte Esterase (NEGATIVE) Urine RBC /HPF Urine WBC /HPF Ur Epithelial Cells /LPF Urine Bacteria (NONE TO FEW) /HPF Urine Mucus (NEGATIVE) /LPF SARS-CoV-2 RNA (JENS) (NEGATIVE) 06/17/21 06/17/21 Range/Units 07:02 07:05 WBC (4.0-10.2) K/uL RBC (3.77-5.09) M/uL Hgb (11.7-15.5) g/dL Hct (34.0-46.0) % MCV (84.0-98.0) fL MCH (28.2-33.3) pg MCHC (31.7-36.0) g/dL RDW (11.2-14.1) % Plt Count (150-350) K/uL Neut % (Auto) (45.0-80.0) % Lymph % (Auto) (10.0-50.0) % Jones % (Auto) (2.0-14.0) % Eos % (Auto) (0.0-5.0) % Baso % (Auto) (0.0-2.0) % Neut # (Auto) (1.40-7.00) K/uL Lymph # (Auto) (0.50-3.50) K/uL Jones # (Auto) (0.00-1.00) K/uL Eos # (Auto) (0.00-0.50) K/uL Baso # (Auto) (0.00-0.20) K/uL D-Dimer, Quantitative (0-400) ng/mL POC ABG pH 7.5 H (7.35-7.45) pH POC ABG pCO2 28 L* (35-48) mmHg POC ABG pO2 75 L (83-108) mmHg POC ABG HCO3 21.7 L (22-26) mmol/L POC ABG Total CO2 22.2 L (23-27) mmol/L POC ABG O2 Sat 96.3 (95-98) % POC ABG Base Excess -0 (-2-3) mmol/L O2 Delivery Device Nasal cannula Oxygen Flow Rate 0.28 Sodium 139 (136-145) mmol/L Potassium 2.7 L* (3.5-5.1) mmol/L Chloride 104 (98-107) mmol/L Carbon Dioxide 25.2 (21.0-32.0) mmol/L Anion Gap 12.5 (7-15) meq/L BUN 14 (7-18) mg/dL Creatinine 0.92 (0.51-1.17) mg/dL Est Cr Clr Drug Dosing 31.53 mL/min Estimated GFR (MDRD) 58 mL/min Glucose 119 H (70-99) mg/dL Lactic Acid (0.4-2.0) mmol/L Calcium 7.7 L (8.5-10.1) mg/dL Magnesium (1.8-2.4) mg/dL Ammonia (11-32) umol/L Troponin I High Sens 27 (<=51) ng/L C-Reactive Protein (<=0.9) mg/dL NT-Pro-B Natriuret Pep (0-125) pg/mL Lipase (73-393) U/L Specimen Type Urine Color Urine Appearance Urine pH (5.0-9.0) Ur Specific [place] (1.005-1.030) Urine Protein (NEGATIVE) mg/dL Urine Glucose (UA) (NEGATIVE) mg/dL Urine Ketones (NEGATIVE) mg/dL Urine Occult Blood (NEGATIVE) Urine Nitrite (NEGATIVE) Urine Bilirubin (NEGATIVE) Urine Urobilinogen (0.2-1.0) E.U./dL Ur Leukocyte Esterase (NEGATIVE) Urine RBC /HPF Urine WBC /HPF Ur Epithelial Cells /LPF Urine Bacteria (NONE TO FEW) /HPF Urine Mucus (NEGATIVE) /LPF SARS-CoV-2 RNA (JENS) (NEGATIVE) Result Diagrams: 06/17/21 07:02 06/17/21 07:02 Sepsis Event Note - Evaluation Sepsis Screening Result: Possible Sepsis Risk - Focused Exam Vital Signs: Vital Signs Temp Pulse Pulse Resp BP BP Pulse Ox 06/17/21 07:18 36.5 C 70 28 H 197/80 H 94 L 06/17/21 00:00 37.3 C 70 24 H 161/77 H 94 L 06/16/21 20:31 75 146/66 H - Problem List & Annotations (1) Altered mental status SNOMED Code(s): 020027227 Code(s): R41.82 - ALTERED MENTAL STATUS, UNSPECIFIED Status: Acute Priority: High Current Visit: Yes Annotation/Comment:: 06/17/2021 Patient has had altered mental status for kim last two weeks, slightly improved from admission last night but still not baseline. Cause is not found. question sepsis. MRI has been entertained with family but not an acute problem and would not change course of treatment. Has been declined at this time. (2) Hypokalemia SNOMED Code(s): 97379174 Code(s): E87.6 - HYPOKALEMIA Status: Acute Priority: High Current Visit: Yes Annotation/Comment:: 06/17/2021 Pateint presented with hypokalemia of 3.2. No diuretic, but limited PO intake. This was replace with IV potassium yesteday but she did receive a few fluid boluses for sepsis and this could have cause further dilution. Will give po dose now, IV 40 and recheck with lactic at 13:30 today (3) Hypoxia SNOMED Code(s): 858339794 Code(s): R09.02 - HYPOXEMIA Status: Acute Current Visit: Yes Annotation/Comment:: 06/17/2021 ABG improved today, not co2 retaining. No pneumonia, covid ro PE. Possible slight fluid overload from sepsis treatment. Will give 40 mg of lasix IV, continue breathing treatments and o2, spirometry if able (4) Sepsis SNOMED Code(s): 55142678 Code(s): A41.9 - SEPSIS, UNSPECIFIED ORGANISM Status: Acute Priority: Hi gh Current Visit: Yes Qualifiers: Severe sepsis acute organ dysfunction type: acute respiratory failure Acute respiratory failure type: with hypoxia Severe sepsis shock status: without se ptic shock Annotation/Comment:: 06/17/2021 No source is found. Normal WBC, lactic did improve slightly with fluids. Zosyn on schedule awaiting blood cutlures. will repeat lactic at 13:30 (5) Weakness SNOMED Code(s): 36931040 Code(s): R53.1 - WEAKNESS Status: Acute Priority: Medium Current Visit: Yes Annotation/Comment:: 06/17/2021 consider skill PT after weekend for strengthening. recent admission to [facility] (6) CHF (congestive heart failure) SNOMED Code(s): 83886723 Code(s): I50.9 - HEART FAILURE, UNSPECIFIED Status: Chronic Priority: Medium Current Visit: Yes Qualifiers: Heart failure type: unspecified Heart failure chronicity: chronic Qualified Code(s): I50.9 - Heart failure, unspecified Annotation/Comment:: 06/17/2021 increase in BNP at admission from previous but clinically dry from sepsis. IV fluids given,. increase in vascular congestion and wet cough today. Will give iv lasix today. no increased work of breathing or increased need for oxygen previous admission note Mild elevation of BNP. No evidence of acute fluid overload on exam. Patient started on Rocephin and Doxy by another provider during stay to cover for potential early pneumonia due to cough and atelectasis noted on chest studies. (7) HTN (hypertension) SNOMED Code(s): 02158159 Code(s): I10 - ESSENTIAL (PRIMARY) HYPERTENSION Status: Chronic Priority: Low Current Visit: Yes Qualifiers: Hypertension type: primary hypertension Qualified Code(s): I10 - Essential (primary) hypertension Annotation/Comment:: 06/17/2021 Patient is on 5 blood pressure medications. They work well, but hypertension noted with wearing off of medication. Will continue current course. Question renal artery stenosis as the cause due to relatively normal kidney function. Question adrenal supression as cause for AMS. Will stress dose with solu cortef 100 mg and check TSH and serus cortisol previous admission note Improved. Hydralizine added after admission with some improvement noted. Small amount HCTZ added yesterday. - Problem List Review Problem List Initiated/Reviewed/Updated: Yes - My Orders Last 24 Hours: My Active Orders 06/16/21 11:22 Cardiac Monitoring [RC] . DIRECTED Chest 1V Frontal [CR] Stat Sodium Chloride 0.9% [Saline Flush] 10 ml FLUSH ASDIRECTED PRN Blood Culture x2 Reflex Set [OM.PC] Stat Peripheral IV Insertion Adult [OM.PC] Routine 06/16/21 11:23 Peripheral IV Care [RC] . DIRECTED 06/16/21 11:24 EKG Documentation Completion [RC] ASDIRECTED 06/16/21 11:30 D5 1/2 NS w/ 40 mEq/L KCl 500 ml IV ASDIRECTED 06/16/21 11:40 CULTURE BLOOD [BC] Stat 06/16/21 11:45 CULTURE BLOOD [BC] Stat 06/16/21 12:12 Abdomen Pelvis w Cont [CT] Stat Ang Chest [CT] Stat Head wo Cont [CT] Stat 06/16/21 12:16 Urinary Catheter Assessment [RC] ASDIRECTED 06/16/21 12:30 Blanchard Catheter Insertion [Insert Urinary Catheter] [OM.PC] Q24H 06/16/21 14:35 Admission Status [Patient Status] [ADT] Routine 06/16/21 14:56 PROCALCITONIN [REF] Stat 06/16/21 15:33 Height and Weight [RC] DAILY Oxygen Therapy [RC] 2300 VTE/DVT Education [RC] PER UNIT ROUTINE Vital Signs [RC] 00,08,16 Acetaminophen [TylenoL] 650 mg PO Q4H PRN Albuterol [Proventil Neb Soln] 2.5 mg NEB Q2H PRN Albuterol/Ipratropium [DuoNeb 3.0-0.5 MG/3 ML] 3 ml NEB Q4H PRN Ondansetron [Zofran ODT] 4 mg PO Q4H PRN Ondansetron [Zofran] 4 mg IVPUSH Q4H PRN bisacodyL [Dulcolax] 5 mg PO DAILY PRN Resuscitation Status Routine 06/16/21 15:34 Intake and Output [RC] ,18 Pulse Oximetry [RC] CONTINUOUS 06/16/21 15:37 RT Aerosol Therapy [RC] .PRN 06/16/21 15:38 Polyvinyl Alcohol [LiquiTears 1.4% Ophth Soln] 0 ml EYEBOTH Q1H PRN 06/16/21 15:45 Enoxaparin [Lovenox] 30 mg SUBCUT DAILY Lactobacillus Rhamnosus GG [Culturelle] 1 cap PO DAILY 06/16/21 18:00 Polyvinyl Alcohol [LiquiTears 1.4% Ophth Soln] 0 ml EYEBOTH BID hydrALAZINE [Apresoline] 10 mg PO TID 06/16/21 20:00 Pantoprazole [ProTONIX IV] 40 mg IV Q12HR atenoloL [Tenormin] 50 mg PO BID@06/16/21 21:00 Piperacillin/Tazobactam [Zosyn] 2.25 gm Sodium Chloride 0.9% [Normal Saline] 100 ml IV Q6H 06/17/21 06:52 Chest 1V Frontal [CR] Routine 06/17/21 07:02 CORTISOL [REF] Stat TSH ULTRASENSITIVE [CHEM] Routine 06/17/21 Breakfast Regular Diet [DIET] 06/17/21 07:45 Sodium Chloride 0.9% [Normal Saline] 500 ml IV ASDIRECTED 06/17/21 08:00 Potassium Chloride Riders [KCl in Water 10 MEQ/50 ML] 10 meq Premix Bag 1 bag IV Q1H hydroCHLOROthiazide 12.5 mg PO DAILY 06/17/21 12:00 Losartan [Cozaar] 100 mg PO DAILY@12 06/17/21 13:30 BASIC METABOLIC PANEL,BMP [CHEM] Timed LACTIC ACID [CHEM] Timed 06/18/21 05:11 LACTIC ACID [CHEM] AM - Assessment Assessment:: Stable hypoxia with slight improvement in AMS. hypokalemia worsening due to dilution. `Awaiting blood cultures for sepsis, CHF with lasix dose today - Plan Plan:: await blood cultures, continue zosyn for sepsis repeat lactic at13:30 Hypoxia with improved AB, continue cares and pulmonary toliet hypokalemia po potassium and iv potassium recheck at 13:30 CHF, slight worsening in treatment of sepsis IV lasix, monitor I & O consider adrenal insufficiency and given solu cortef 100 mg IVP
[2021-06-17] MEDS: Lactobacillus Rhamnosus GG (Probiotic) Cap PO SCH (08:45)
[2021-06-17] MEDS: Hydrochlorothiazide 25 MG Tab PO SCH (08:45)
[2021-06-17] MEDS: Enoxaparin 30 MG/0.3 ML Syringe SUBCUT SCH (08:45)
[2021-06-17] MEDS: Polyvinyl Alcohol 1.4% Ophth Soln 15 ML Bottle EYEBOTH SCH ×2 (09:16→17:27)
[2021-06-17] MEDS: Pantoprazole 40 MG Vial IV SCH ×2 (09:16→20:03)
[2021-06-17] MEDS: hydrALAZINE 10 MG Tab PO SCH ×3 (09:16→17:20)
[2021-06-17] MEDS: Losartan 50 MG Tab PO SCH (12:24)
[2021-06-17] MEDS: Atenolol 50 MG Tab PO SCH ×2 (12:24→21:27)
[2021-06-17 13:59] LABS: ANION GAP 8.7 meq/L (7-15)
[2021-06-18] MEDS: Piperacillin/Tazobactam 2.25 GM in Sodium Chloride 0.9% 100 ML IV SCH ×4 (03:11→21:09)
[2021-06-18 08:25] LABS: ANION GAP 10.3 meq/L (7-15)
[2021-06-18] MEDS ORDERED: Sodium Chloride 0.9% 500 ML IV SCH (09:00)
[2021-06-18] MEDS: Potassium Chloride Riders 10 MEQ in Premix Bag 1 BAG IV SCH ×3 (09:50→13:55)
--- NOTE | 2021-06-18 09:57 | PCM.PN ---
- General Info Date of Service: 06/18/21 Admission Dx/Problem (Free Text): hypoxia, altered mental status hypertension, concern for sepsis Subjective Update: Patient has done well over the last 24 hours. She is more alert and this morning actually fed herself breakfast. Answering questions better and talking in short phrases. Better color. Blood pressure improved. Did have some diuresis yesterday and breathing a little easier. No complaints. Has not ambulated far. prior to illness several weeks ago could walk at least a block without stopping. Now, a few feet. Functional Status: Reports: Pain Controlled, Tolerating Diet, Ambulating, Urinating, Incentive Spirometry, Other (feeing self, more alret) - Review of Systems General: Reports: Weakness, Fatigue. Denies: Fever, Malaise, Chills HEENT: Reports: No Symptoms. Denies: Post Nasal Drip, Sinus Congestion, Sore Throat, Rhinitis Pulmonary: Reports: Shortness of Breath, Cough (stable and improving) Cardiovascular: Reports: No Symptoms. Denies: Chest Pain, Palpitations, Lightheadedness Gastrointestinal: Reports: No Symptoms. Denies: Abdominal Pain, Nausea, Vomiting Genitourinary: Denies: Dysuria, Urgency Skin: Reports: No Symptoms Neurological: Reports: Difficulty Walking (due to weakness) Psychiatric: Reports: No Symptoms - Patient Data Vitals - Most Recent: Last Vital Signs Temp 36.4 C 06/18/21 00:00 Pulse 56 L 06/18/21 00:00 Resp 20 06/18/21 00:00 BP 128/90 06/18/21 00:00 Pulse Ox 96 06/18/21 00:00 Weight - Most Recent: 66.179 kg I&O - Last 24 Hours: Intake & Output 06/17/21 06/18/21 06/18/21 22:59 06:59 14:59 Intake Total 460 213 Output Total 450 325 Balance 10 -112 Lab Results Last 24 Hours: Laboratory Results - last 24 hr 06/17/21 06/17/21 06/18/21 Range/Units 13:38 13:38 07:45 Sodium 137 139 (136-145) mmol/L Potassium 3.5 2.8 L* (3.5-5.1) mmol/L Chloride 102 104 (98-107) mmol/L Carbon Dioxide 26.3 27.5 (21.0-32.0) mmol/L Anion Gap 8.7 10.3 (7-15) meq/L BUN 15 20 H (7-18) mg/dL Creatinine 1.06 0.91 (0.51-1.17) mg/dL Est Cr Clr Drug Dosing 27.36 31.88 mL/min Estimated GFR (MDRD) 49 59 mL/min Glucose 141 H 102 H (70-99) mg/dL Lactic Acid 1.4 (0.4-2.0) mmol/L Calcium 7.6 L 7.9 L (8.5-10.1) mg/dL Magnesium 2.0 (1.8-2.4) mg/dL Estuardo Results Last 24 Hours: Microbiology 06/16/21 11:45 Aerobic Blood Culture - Preliminary Blood - Venous - Lab Draw NO GROWTH AFTER 1 DAY Anaerobic Blood Culture - Preliminary NO GROWTH AFTER 1 DAY 06/16/21 11:40 Aerobic Blood Culture - Preliminary Blood - Venous NO GROWTH AFTER 1 DAY Anaerobic Blood Culture - Preliminary NO GROWTH AFTER 1 DAY Med Orders - Current: Current Medications Acetaminophen (Acetaminophen 325 Mg Tab) 650 mg PO Q4H PRN PRN Reason: Pain (Mild 1-3)/fever Albuterol (Albuterol 0.083% 2.5 Mg/3 Ml Neb Soln) 2.5 mg NEB Q2H PRN PRN Reason: Shortness Of Breath/wheezing Albuterol/Ipratropium (Albuterol/Ipratropium 3.0-0.5 Mg/3 Ml Neb Soln) 3 ml NEB Q4H PRN PRN Reason: Dyspnea Artificial Tears (Polyvinyl Alcohol 1.4% Ophth Soln 15 Ml Bottle) 0 ml EYEBOTH Q1H PRN PRN Reason: Dry Eyes Artificial Tears (Polyvinyl Alcohol 1.4% Ophth Soln 15 Ml Bottle) 0 ml EYEBOTH BID [facility] Last Admin: 06/17/21 17:27 Dose: 2 drop Documented by: Atenolol (Atenolol 50 Mg Tab) 50 mg PO BID@12,20 [facility] Last Admin: 06/17/21 21:27 Dose: Not Given Documented by: Bisacodyl (Bisacodyl 5 Mg Tab) 5 mg PO DAILY PRN PRN Reason: Constipation Enoxaparin Sodium (Enoxaparin 30 Mg/0.3 Ml Syringe) 30 mg SUBCUT DAILY [facility] Last Admin: 06/17/21 08:45 Dose: 30 mg Documented by: Hydralazine HCl (Hydralazine 10 Mg Tab) 10 mg PO TID [facility] Last Admin: 06/17/21 17:20 Dose: 10 mg Documented by: Hydrochlorothiazide (Hydrochlorothiazide 25 Mg Tab) 12.5 mg PO DAILY [facility] Last Admin: 06/17/21 08:45 Dose: 12.5 mg Documented by: Potassium Chloride/Dextrose/Sod Cl (D5 1/2 Ns W/ 40 Meq/L Kcl) 500 mls @ 120 mls/hr IV ASDIRECTED [facility] Last Admin: 06/16/21 11:55 Dose: 120 mls/hr Documented by: Piperacillin Sod/Tazobactam (Sod 2.25 gm/ Sodium Chloride) 100 mls @ 200 mls/hr IV Q6H [facility] Last Admin: 06/18/21 03:11 Dose: 200 mls/hr Documented by: Sodium Chloride (Normal Saline) 500 mls @ 100 mls/hr IV ASDIRECTED [facility] Last Admin: 06/17/21 08:26 Dose: 100 mls/hr Documented by: Potassium Chloride 10 meq/ (Premix) 50 mls @ 50 mls/hr IV Q1H [facility] Stop: 06/18/21 11:59 Sodium Chloride (Normal Saline) 500 mls @ 100 mls/hr IV ASDIRECTED [facility] Lactobacillus Rhamnosus (Lactobacillus Rhamnosus Gg (Probiotic) Cap) 1 cap PO DAILY [facility] Last Admin: 06/17/21 08:45 Dose: 1 cap Documented by: Losartan Potassium (Losartan 50 Mg Tab) 100 mg PO DAILY@12 [facility] Last Admin: 06/17/21 12:24 Dose: 100 mg Documented by: Ondansetron HCl (Ondansetron 4 Mg Tab.Dis) 4 mg PO Q4H PRN PRN Reason: Nausea/Vomiting Ondansetron HCl (Ondansetron 4 Mg/2 Ml Sdv) 4 mg IVPUSH Q4H PRN PRN Reason: Nausea/Vomiting Pantoprazole Sodium (Pantoprazole 40 Mg Vial) 40 mg IV Q12HR [facility] Last Admin: 06/17/21 20:03 Dose: 40 mg Documented by: Potassium Bicarbonate (Potassium Bicarbonate/Cit Ac 20 Meq Effervescent Tab) 40 meq PO TID [facility] Stop: 06/20/21 08:01 Sodium Chloride (Sodium Chloride 0.9% 10 Ml Syringe) 10 ml FLUSH ASDIRECTED PRN PRN Reason: Keep Vein Open Last Admin: 06/17/21 15:44 Dose: 10 ml Documented by: Discontinued Medications Atenolol (Atenolol 50 Mg Tab) 50 mg PO ONETIME ONE Stop: 06/16/21 13:57 Last Admin: 06/16/21 14:07 Dose: 50 mg Documented by: Furosemide (Furosemide 20 Mg/2 Ml Vial) 20 mg IVPUSH ONETIME ONE Stop: 06/17/21 06:55 Last Admin: 06/17/21 07:15 Dose: 20 mg Documented by: Hydralazine HCl (Hydralazine 10 Mg Tab) 10 mg PO NOW STA Stop: 06/16/21 13:57 Last Admin: 06/16/21 14:07 Dose: 10 mg Documented by: Hydrocortisone Sodium Succinate (Hydrocortisone Sodium Succinate 100 Mg/2 Ml Sdv) 100 mg IVPUSH ONETIME ONE Stop: 06/17/21 08:05 Last Admin: 06/17/21 08:46 Dose: 100 mg Documented by: Sodium Chloride (Normal Saline) 1,000 mls @ 500 mls/hr IV ASDIRECTED [facility] Stop: 06/16/21 13:29 Last Admin: 06/16/21 11:55 Dose: 500 mls/hr Documented by: Sodium Chloride (Normal Saline) 1,000 mls @ 75 mls/hr IV ASDIRECTED [facility] Last Admin: 06/16/21 13:39 Dose: 999 mls/hr Documented by: Piperacillin Sod/Tazobactam (Sod 3.375 gm/ Sodium Chloride) 100 mls @ 200 mls/hr IV Q6H [facility] Last Admin: 06/16/21 15:00 Dose: 200 mls/hr Documented by: Piperacillin Sod/Tazobactam (Sod 3.375 gm/ Sodium Chloride) 100 mls @ 200 mls/hr IV Q6H ANN-MARIE Piperacillin Sod/Tazobactam (Sod 2.25 gm/ Sodium Chloride) 100 mls @ 200 mls/hr IV Q6H ANN-MARIE Piperacillin Sod/Tazobactam (Sod 2.25 gm/ Sodium Chloride) 100 mls @ 200 mls/hr IV Q6H ANN-MARIE Piperacillin Sod/Tazobactam (Sod 2.25 gm/ Sodium Chloride) 100 mls @ 200 mls/hr IV Q6H ANN-MARIE Last Admin: 06/17/21 03:08 Dose: Not Given Documented by: Potassium Chloride 10 meq/ (Premix) 50 mls @ 50 mls/hr IV Q1H ANN-MARIE Stop: 06/17/21 11:59 Last Admin: 06/17/21 12:01 Dose: 50 mls/hr Documented by: Iopamidol (Iopamidol 755 Mg/Ml 100 Ml Bottle) 100 ml IVPUSH ONETIME STA Stop: 06/16/21 12:30 Last Admin: 06/16/21 13:05 Dose: 100 ml Documented by: Losartan Potassium (Losartan 50 Mg Tab) 100 mg PO ONETIME ONE Stop: 06/16/21 13:57 Last Admin: 06/16/21 14:07 Dose: 100 mg Documented by: Potassium Bicarbonate (Potassium Bicarbonate/Cit Ac 20 Meq Effervescent Tab) 40 meq PO ONETIME ONE Stop: 06/17/21 07:38 Last Admin: 06/17/21 08:41 Dose: 40 meq Documented by: - Exam Quality Assessment: Supplemental Oxygen (prior to exam stopped, check before and after eating. maintaining at 94% at rest on room air. Did not ambulate) Urinary Catheter Total Time: 0Days 0Hours General: Alert, Cooperative (less sedated, feeding herself, answers questions) HEENT: Pupils Equal Neck: Supple Lungs: Clear to Auscultation, Normal Respiratory Effort. No: Decreased Breath Sounds Cardiovascular: Regular Rate, Regular Rhythm GI/Abdominal Exam: Normal Bowel Sounds, Soft Back Exam: Normal Inspection, Full Range of Motion Extremities: Normal Inspection, Normal Range of Motion, Non-Tender, No Pedal Edema Neurological: No New Focal Deficit Psy/Mental Status: Alert - Patient Data Lab Results Last 24 hrs: Laboratory Results - last 24 hr 06/17/21 06/17/21 06/18/21 Range/Units 13:38 13:38 07:45 Sodium 137 139 (136-145) mmol/L Potassium 3.5 2.8 L* (3.5-5.1) mmol/L Chloride 102 104 (98-107) mmol/L Carbon Dioxide 26.3 27.5 (21.0-32.0) mmol/L Anion Gap 8.7 10.3 (7-15) meq/L BUN 15 20 H (7-18) mg/dL Creatinine 1.06 0.91 (0.51-1.17) mg/dL Est Cr Clr Drug Dosing 27.36 31.88 mL/min Estimated GFR (MDRD) 49 59 mL/min Glucose 141 H 102 H (70-99) mg/dL Lactic Acid 1.4 (0.4-2.0) mmol/L Calcium 7.6 L 7.9 L (8.5-10.1) mg/dL Magnesium 2.0 (1.8-2.4) mg/dL Result Diagrams: 06/17/21 07:02 06/18/21 07:45 Estuardo Results Last 24 hrs: Microbiology 06/16/21 11:45 Aerobic Blood Culture - Preliminary Blood - Venous - Lab Draw NO GROWTH AFTER 1 DAY Anaerobic Blood Culture - Preliminary NO GROWTH AFTER 1 DAY 06/16/21 11:40 Aerobic Blood Culture - Preliminary Blood - Venous NO GROWTH AFTER 1 DAY Anaerobic Blood Culture - Preliminary NO GROWTH AFTER 1 DAY Sepsis Event Note - Evaluation Sepsis Screening Result: Possible Sepsis Risk - Focused Exam Vital Signs: Vital Signs Temp Pulse Resp BP Pulse Ox 06/18/21 00:00 36.4 C 56 L 20 128/90 96 - Problem List & Annotations (1) Altered mental status SNOMED Code(s): 948250570 Code(s): R41.82 - ALTERED MENTAL STATUS, UNSPECIFIED Status: Acute Priority: High Current Visit: Yes Annotation/Comment:: 06/18/2021 Improved mental status, feeding self, no stroke or sepsis noted. continue to monitor 06/17/2021 Patient has had altered mental status for ikm last two weeks, slightly improved from admission last night but still not baseline. Cause is not found. question sepsis. MRI has been entertained with family but not an acute problem and would not change course of treatment. Has been declined at this time. (2) Hypokalemia SNOMED Code(s): 84973327 Code(s): E87.6 - HYPOKALEMIA Status: Acute Priority: High Current V isit: Yes Annotation/Comment:: Was 3.5 yesterday but did get some diuretic for fluid overload, low again, but magnesium is normal. Will give po dose tid for 2 days, some potassium riders today and check in the Am 06/17/2021 Pateint presented with hypokalemia of 3.2. No diuretic, but limited PO intake. This was replace with IV potassium yesteday but she did receive a few fluid boluses for sepsis and this could have cause further dilution. Will give po d ose now, IV 40 and recheck with lactic at 13:30 today (3) Hypoxia SNOMED Code(s): 582723467 Code(s): R09.02 - HYPOXEMIA Status: Acute Current Visit: Yes Annotati on/Comment:: 06/18/2021 Patient is improved at rest with sats of 94%. Will check sats with activity and use as needed, may need prn order for snf 06/17/2021 ABG improved today, not co2 retaining. No pneumonia, covid ro PE. Possible slight fluid overload from sepsis treatment. Will give 40 mg of lasix IV, continue breathing treatments and o2, spirometry if able (4) Sepsis SNOMED Code(s): 11694278 Code(s): A41.9 - SEPSIS, UNSPECIFIED ORGANISM Status: Acute Priority: High Current Visit: Yes Qualifiers: Severe sepsis acute organ dysfunction type: acute respiratory failure Acute respiratory failure type: with hypoxia Severe sepsis shock status: without septic shock Annotation/Comment:: 06/18/2021 normal WBC, normal lactic no source found. continue iv antibiotics through today. stop if cultures continue to be negative 06/17/2021 No source is found. Normal WBC, lactic did improve slightly with fluids. Zosyn on schedule awaiting blood cutlures. will repeat lactic at 13:30 (5) Weakness SNOMED Code(s): 95664193 Code(s): R53.1 - WEAKNESS Status: Acute Priority: Medium Current Visit: Yes Annotation/Comment:: 06/18/2021 Doing better, alert, able to feed self. Will need therapy to get back to baseline Therapy consult placed for evaluation to return to snf tomorrow for rehab. 06/17/2021 consider skill PT after weekend for strengthening. recent admission to snf (6) CHF (congestive heart failure) SNOMED Code(s): 29464206 Code(s): I50.9 - HEART FAILURE, UNSPECIFIED Status: Chronic Priority: Medium Current Visit: Yes Qualifiers: Heart failure type: unspecified Heart failure chronicity: chronic Qualified Code(s): I50.9 - Heart failure, unspecified Annotation/Comment:: 06/18/2021 did have good diuresis yesterday, decreased potassium though. Will not diurses more, minimal fluid given with potassium riders, but appetite has been down so oral intake balances the small amount of IV 06/17/2021 increase in BNP at admission from previous but clinically dry from sepsis. IV fluids given,. increase in vascular congestion and wet cough today. Will give iv lasix today. no increased work of breathing or increased need for oxygen previous admission note Mild elevation of BNP. No evidence of acute fluid overload on exam. Patient started on Rocephin and Doxy by another provider during stay to cover for potential early pneumonia due to cough and atelectasis noted on chest studies. (7) HTN (hypertension) SNOMED Code(s): 65228610 Code(s): I10 - ESSENTIAL (PRIMARY) HYPERTENSION Status: Chronic Priority: Low Current Visit: Yes Qualifiers: Hypertension type: primary hypertension Qualified Code(s): I10 - Essential (primary) hypertension Annotation/Comment:: 06/18/2021Marked improvement without medications last night. Good response to the stress dose of solu cortef. awaiting cortisol level with concern for adrenal supression continue current medication schedule but this may need to be evaluated and medications held if 130 systolic or less 06/17/2021 Patient is on 5 blood pressure medications. They work well, but hypertension noted with wearing off of medication. Will continue current course. Question renal artery stenosis as the cause due to relatively normal kidney function. Question adrenal supression as cause for AMS. Will stress dose with solu cortef 100 mg and check TSH and serus cortisol previous admission note Improved. Hydralizine added after admission with some improvement noted. Small amount HCTZ added yesterday. - Problem List Review Problem List Initiated/Reviewed/Updated: Yes - My Orders Last 24 Hours: My Active Orders 06/17/21 08:58 Incentive Spirometry [RT Incentive Spirometry] [RC] Q4HWA 06/17/21 12:00 Losartan [Cozaar] 100 mg PO DAILY@12 06/18/21 02:12 Consult to Physical Therapy [PT Evaluation and Treatment] [CONS] Routine 06/18/21 09:00 Potassium Chloride Riders [KCl in Water 10 MEQ/50 ML] 10 meq Premix Bag 1 bag IV Q1H Sodium Chloride 0.9% [Normal Saline] 500 ml IV ASDIRECTED 06/18/21 12:00 Potassium Bicarbonate/Cit Ac [Effer-K] 40 meq PO TID - Assessment Assessment:: 06/18/2021 Improved hypoxia, will use O2 as needed and check with activity, hypokalemia due to diuresis, negative cultures, improved CHF, improved hypertension 06/17/2021 Stable hypoxia with slight improvement in AMS. hypokalemia worsening due to dilution. `Awaiting blood cultures for sepsis, CHF with lasix dose today - Plan Plan:: 06/18/2021 cultures continue to be negative. Continue zosyn through today. recheck cbc in am hypoxia improved. o2 with activity and as needed hypokalemia, had improved, diuresis made worse. Po potassium tid and a few potassium riders, BMP in the am CHf improved hypertension hold dose of blood pressure medications if systolic 130 or less Continue to wait for cortisol, hold further steroids at this time 06/17/2021 await blood cultures, continue zosyn for sepsis repeat lactic at13:30 Hypoxia with improved AB, continue cares and pulmonary toliet hypokalemia po potassium and iv potassium recheck at 13:30 CHF, slight worsening in treatment of sepsis IV lasix, monitor I & O consider adrenal insufficiency and given solu cortef 100 mg IVP
[2021-06-18] MEDS: Sodium Chloride 0.9% 10 ML Syringe FLUSH PRN (10:05)
[2021-06-18] MEDS: hydrALAZINE 10 MG Tab PO SCH ×3 (10:05→17:36)
[2021-06-18] MEDS: Pantoprazole 40 MG Vial IV SCH (10:05)
[2021-06-18] MEDS: Lactobacillus Rhamnosus GG (Probiotic) Cap PO SCH (10:05)
[2021-06-18] MEDS: Polyvinyl Alcohol 1.4% Ophth Soln 15 ML Bottle EYEBOTH SCH ×2 (10:09→17:22)
[2021-06-18] MEDS: Hydrochlorothiazide 25 MG Tab PO SCH (10:09)
[2021-06-18] MEDS: Enoxaparin 30 MG/0.3 ML Syringe SUBCUT SCH (10:10)
[2021-06-18] MEDS ORDERED: Potassium Bicarbonate/Cit Ac 20 MEQ Effervescent Tab PO SCH (12:00)
[2021-06-18] MEDS: Losartan 50 MG Tab PO SCH (13:01)
[2021-06-18] MEDS: Atenolol 50 MG Tab PO SCH ×2 (13:07→20:30)
[2021-06-18] MEDS: Potassium Chloride 20 MEQ Tab.ER PO SCH (17:21)
[2021-06-19] MEDS: Enoxaparin 30 MG/0.3 ML Syringe SUBCUT SCH (08:25)
[2021-06-19] MEDS: hydrALAZINE 10 MG Tab PO SCH ×2 (08:25→11:46)
[2021-06-19] MEDS: Lactobacillus Rhamnosus GG (Probiotic) Cap PO SCH (08:25)
[2021-06-19] MEDS: Hydrochlorothiazide 25 MG Tab PO SCH (08:25)
[2021-06-19] MEDS: Polyvinyl Alcohol 1.4% Ophth Soln 15 ML Bottle EYEBOTH SCH (08:26)
[2021-06-19] MEDS: Potassium Chloride 20 MEQ Tab.ER PO SCH ×2 (08:26→11:43)
[2021-06-19 08:31] LABS: CHLORIDE,CL 105 mmol/L (98-107); SODIUM,NA 139 mmol/L (136-145)
[2021-06-19] MEDS ORDERED: Hydrocortisone Sodium Succinate 100 MG/2 ML SDV IVPUSH ONE (11:22)
--- NOTE | 2021-06-19 11:34 | PCM.DCSUM1 ---
Discharge Summary - Hospital Course HPI Initial Comments: Patient was admitted for lethargy, hypoxia, hypertension. Brief History: admitted to the hospital for lethargy, and concern for sepsis. Was treated with fluid resuscitation, antibiotics and improved. Has been up and feeding herself, off oxygen, able to ambulate to the bathroom and dress self. No source of infection found. Modified Jolie Scale: Mod.Disablility Requiring Some Help,Able to Walk Without Assistance Modified Jolie Scale Score: 3 - Discharge Data Discharge Date: 06/19/21 Discharge Disposition: DC/[facility] to [facility] Condition: Good - Referral to Home Health Primary Care Physician: Sheila Mckeon NP - Discharge Diagnosis/Problem(s) (1) Altered mental status SNOMED Code(s): 328193157 ICD Code: R41.82 - ALTERED MENTAL STATUS, UNSPECIFIED Status: Acute Priority: Medium Current Visit: Yes Problem Details: 06/19/2021 rousable to voice, can dress and feed self. Pt did see and needs strengthening but safe for group home 06/18/2021 Improved mental status, feeding self, no stroke or sepsis noted. continue to monitor 06/17/2021 Patient has had altered mental status for kim last two weeks, slightly improved from admission last night but still not baseline. Cause is not found. question sepsis. MRI has been entertained with family but not an acute problem and would not change course of treatment. Has been declined at this time. (2) Hypokalemia SNOMED Code(s): 35430779 ICD Code: E87.6 - HYPOKALEMIA Status: Acute Priority: High Current Visit: Yes Problem Details: Normal today, will stop the diuretic at discharge as she may be sensitive to diuresis, daily weights, managed by PCP if fluid overload starts Was 3.5 yesterday but did get some diuretic for fluid overload, low again, but magnesium is normal. Will give po dose tid for 2 days, some potassium riders today and check in the Am 06/17/2021 Pateint presented with hypokalemia of 3.2. No diuretic, but limited PO intake. This was replace with IV potassium yesteday but she did receive a few fluid boluses for sepsis and this could have cause further dilution. Will give po dose now, IV 40 and recheck with lactic at 13:30 today (3) Hypoxia SNOMED Code(s): 354240462 ICD Code: R09.02 - HYPOXEMIA Status: Acute Current Visit: Yes Problem Details: 06/19/2021 Improved. Not on oxygen with ambulation, at a nursing facility, has oxygen available if needed 06/18/2021 Patient is improved at rest with sats of 94%. Will check sats with activity and use as needed, may need prn order for group home 06/17/2021 ABG improved today, not co2 retaining. No pneumonia, covid ro PE. Possible slight fluid overload from sepsis treatment. Will give 40 mg of lasix IV, continue breathing treatments and o2, spirometry if able (4) Sepsis SNOMED Code(s): 43939910 ICD Code: A41.9 - SEPSIS, UNSPECIFIED ORGANISM Status: Acute Priority: High Current Visit: Yes Problem Details: 06/19/2021 cultures continue to be negative. Antibiotics stopped 06/18/2021 normal WBC, normal lactic no source found. continue iv antibiotics through today. stop if cultures continue to be negative 06/17/2021 No source is found. Normal WBC, lactic did improve slightly with fluids. Zosyn on schedule awaiting blood cutlures. will repeat lactic at 13:30 Qualifiers: Severe sepsis acute organ dysfunction type: acute respiratory failure Acute respiratory failure type: with hypoxia Severe sepsis shock status: without septic shock (5) Weakness SNOMED Code(s): 66782442 ICD Code: R53.1 - WEAKNESS Status: Acute Priority: Medium Current Visit: Yes Problem Details: 06/19/2021 Comes and goes, but is able to feed self, ambulate, toliet self and dress self. Needs continued physical therapy. Question element of adrenal suppression. Did receive two doses of IV hydrocortisone with good respone. Awaiting cortisol levels, needs close follow up with PCP 06/18/2021 Doing better, alert, able to feed self. Will need therapy to get back to baseline Therapy consult placed for evaluation to return to group home tomorrow for rehab. 06/17/2021 consider skill PT after weekend for strengthening. recent admission to group home (6) CHF (congestive heart failure) SNOMED Code(s): 20123962 ICD Code: I50.9 - HEART FAILURE, UNSPECIFIED Status: Chronic Priority: Medium Current Visit: Yes Problem Details: Very sensitive to fluid overload and any diuretic. Will stop the HCTZ daily and have a prn dose of lasix 20 mg po if daily weight up 2 pounds. 06/18/2021 did have good diuresis yesterday, decreased potassium though. Will not diurses more, minimal fluid given with potassium riders, but appetite has been down so oral intake balances the small amount of IV 06/17/2021 increase in BNP at admission from previous but clinically dry from sepsis. IV fluids given,. increase in vascular congestion and wet cough today. Will give iv lasix today. no increased work of breathing or increased need for oxygen previous admission note Mild elevation of BNP. No evidence of acute fluid overload on exam. Patient started on Rocephin and Doxy by another provider during stay to cover for potential early pneumonia due to cough and atelectasis noted on chest studies. Qualifiers: Heart failure type: unspecified Heart failure chronicity: chronic Qualified Code(s): I50.9 - Heart failure, unspecified (7) HTN (hypertension) SNOMED Code(s): 82610216 ICD Code: I10 - ESSENTIAL (PRIMARY) HYPERTENSION Status: Chronic Priority: Low Current Visit: Yes Problem Details: Significant hypertension o gracy the last month. on multiple medications. Question renal artery stenosis. This would also affect the adrenal glands. Possible renal artery ultrasound. awaiting coritsol levels. Hypertension greatly improved with stress dose of hydrocortisone to the point of medication withheld 06/18/2021Marked improvement without medications last night. Good response to the stress dose of solu cortef. awaiting cortisol level with concern for adrenal supression continue current medication schedule but this may need to be evaluated and medications held if 130 systolic or less 06/17/2021 Patient is on 5 blood pressure medications. They work well, but hypertension noted with wearing off of medication. Will continue current course. Question renal artery stenosis as the cause due to relatively normal kidney function. Question adrenal supression as cause for AMS. Will stress dose with solu cortef 100 mg and check TSH and serus cortisol previous admission note Improved. Hydralizine added after admission with some improvement noted. Small amount HCTZ added yesterday. Qualifiers: Hypertension type: secondary to other renal disorders Qualified Code(s): I15.1 - Hypertension secondary to other renal disorders; N28.89 - Other specified disorders of kidney and ureter - Patient Summary/Data Consults: Consultations 06/18/21 02:12 Consult to Physical Therapy [PT Evaluation and Treatment] [CONS] Routine Recommended Follow-up Testing/Procedures: Renal artery doppler, awaiting cortisol levels, PT in the group home Hospital Course: patient improved well over the course with decreased need for oxygen, feeding self, more alert. No cause of her lethargy noted or found - Patient Instructions Diet: Low Sodium Showering/Bathing: March Shower - Discharge Plan *PRESCRIPTION DRUG MONITORING PROGRAM REVIEWED*: Not Applicable *COPY OF PRESCRIPTION DRUG MONITORING REPORT IN PATIENT JHONY: Not Applicable Prescriptions/Med Rec: Acetaminophen 325 mg PO Q4HR #30 tab.chew Furosemide [Lasix] 20 mg PO DAILY PRN #15 tab PRN Reason: Shortness Of Breath Home Medications: Home Meds Losartan Potassium 100 mg PO DAILY@12/21/20 [History] atenoloL [Atenolol] 50 mg PO BID@12/21/20 [History] Docusate Sodium [Colace] 100 mg PO 1200 06/10/21 [History] Polyvinyl Alcohol [LiquiTears 1.4% Ophth Soln] 2 drop EYEBOTH BID 06/10/21 [History] Meclizine [Antivert] 25 mg PO Q8HR PRN #60 tablet 06/14/21 [Rx] Polyvinyl Alcohol [LiquiTears 1.4% Ophth Soln] 0 ml EYEBOTH Q1H PRN bottle 06/14/21 [Rx] hydrALAZINE [Apresoline] 10 mg PO TID 06/16/21 [History] Acetaminophen 325 mg PO Q4HR #30 tab.chew 06/19/21 [Rx] Albuterol [Proventil Neb Soln] 2.5 mg NEB Q2H PRN neb 06/19/21 [Rx] Albuterol/Ipratropium [DuoNeb 3.0-0.5 MG/3 ML] 3 ml NEB Q4H PRN neb 06/19/21 [Rx] Furosemide [Lasix] 20 mg PO DAILY PRN #15 tab 06/19/21 [Rx] Potassium Chloride [Klor-Con M20] 40 meq PO TID tab.er 06/19/21 [Rx] Other Amb Orders: PT Evaluation and Treatment [CONS] Location: None Selected RT Supplemental Oxygen Titration [RESPCARE] Location: None Selected Oxygen Therapy Mode: Room Air Patient Handouts: Hypoxemia, Hypokalemia, Heart Failure, Self Care, [id number] Forms: ED Department Discharge Referrals: Sheila Mckeon NP [Primary Care Provider] - - Discharge Summary/Plan Comment DC Time >30 min.: No Total # of Minutes for Discharge Time: 30 Discharge Summary/Plan Comment: Patient will be sent back to group home for rehabilitation. Needs physical therapy for strengthening. Oxygen as needed to keep sats above 90%. Stop the hydrochlrothiazide, lasix 20 mg daily prn if daily weight up 2 pounds. PCP needs to follow up with renal ultrasound and cortisol levels pending - Patient Data Vitals - Most Recent: Last Vital Signs Temp 36.5 C 06/19/21 08:00 Pulse 56 L 06/19/21 08:00 Resp 20 06/19/21 08:00 BP 172/68 H 06/19/21 08:25 Pulse Ox 92 L 06/19/21 08:00 Weight - Most Recent: 66.723 kg I&O - Last 24 hours: Intake & Output 06/18/21 06/19/21 06/19/21 22:59 06:59 14:59 Intake Total 1420 120 660 Output Total 650 300 Balance 770 -180 660 Lab Results - Last 24 hrs: Laboratory Results - last 24 hr 06/19/21 06/19/21 Range/Units 07:30 07:30 WBC 5.7 (4.0-10.2) K/uL RBC 4.09 (3.77-5.09) M/uL Hgb 12.3 (11.7-15.5) g/dL Hct 36.5 (34.0-46.0) % MCV 89.2 (84.0-98.0) fL MCH 30.1 (28.2-33.3) pg MCHC 33.7 (31.7-36.0) g/dL RDW 13.8 (11.2-14.1) % Plt Count 156 (150-350) K/uL Neut % (Auto) 55.5 (45.0-80.0) % Lymph % (Auto) 26.2 (10.0-50.0) % Branch % (Auto) 14.0 (2.0-14.0) % Eos % (Auto) 3.9 (0.0-5.0) % Baso % (Auto) 0.4 (0.0-2.0) % Neut # (Auto) 3.14 (1.40-7.00) K/uL Lymph # (Auto) 1.48 (0.50-3.50) K/uL Branch # (Auto) 0.79 (0.00-1.00) K/uL Eos # (Auto) 0.22 (0.00-0.50) K/uL Baso # (Auto) 0.02 (0.00-0.20) K/uL Sodium 139 (136-145) mmol/L Potassium 3.8 (3.5-5.1) mmol/L Chloride 105 (98-107) mmol/L Carbon Dioxide 27.0 (21.0-32.0) mmol/L Anion Gap 7.0 (7-15) meq/L BUN 19 H (7-18) mg/dL Creatinine 0.85 (0.51-1.17) mg/dL Est Cr Clr Drug Dosing 34.12 mL/min Estimated GFR (MDRD) > 60 mL/min Glucose 97 (70-99) mg/dL Calcium 7.9 L (8.5-10.1) mg/dL NILESH Results - Last 24 hrs: Microbiology 06/16/21 11:40 Aerobic Blood Culture - Preliminary Blood - Venous NO GROWTH AFTER 2 DAYS Anaerobic Blood Culture - Preliminary NO GROWTH AFTER 2 DAYS 06/16/21 11:45 Aerobic Blood Culture - Preliminary Blood - Venous - Lab Draw NO GROWTH AFTER 2 DAYS Anaerobic Blood Culture - Preliminary NO GROWTH AFTER 2 DAYS Med Orders - Current: Current Medications Acetaminophen (Acetaminophen 325 Mg Tab) 650 mg PO Q4H PRN PRN Reason: Pain (Mild 1-3)/fever Albuterol (Albuterol 0.083% 2.5 Mg/3 Ml Neb Soln) 2.5 mg NEB Q2H PRN PRN Reason: Shortness Of Breath/wheezing Albuterol/Ipratropium (Albuterol/Ipratropium 3.0-0.5 Mg/3 Ml Neb Soln) 3 ml NEB Q4H PRN PRN Reason: Dyspnea Artificial Tears (Polyvinyl Alcohol 1.4% Ophth Soln 15 Ml Bottle) 0 ml EYEBOTH Q1H PRN PRN Reason: Dry Eyes Artificial Tears (Polyvinyl Alcohol 1.4% Ophth Soln 15 Ml Bottle) 0 ml EYEBOTH BID [facility] Last Admin: 06/19/21 08:26 Dose: 2 drop Documented by: Atenolol (Atenolol 50 Mg Tab) 50 mg PO BID@12,20 [facility] Last Admin: 06/18/21 20:30 Dose: 50 mg Documented by: Bisacodyl (Bisacodyl 5 Mg Tab) 5 mg PO DAILY PRN PRN Reason: Constipation Enoxaparin Sodium (Enoxaparin 30 Mg/0.3 Ml Syringe) 30 mg SUBCUT DAILY [facility] Last Admin: 06/19/21 08:25 Dose: 30 mg Documented by: Hydralazine HCl (Hydralazine 10 Mg Tab) 10 mg PO TID [facility] Last Admin: 06/19/21 08:25 Dose: 10 mg Documented by: Hydrochlorothiazide (Hydrochlorothiazide 25 Mg Tab) 12.5 mg PO DAILY [facility] Last Admin: 06/19/21 08:25 Dose: 12.5 mg Documented by: Lactobacillus Rhamnosus (Lactobacillus Rhamnosus Gg (Probiotic) Cap) 1 cap PO DAILY [facility] Last Admin: 06/19/21 08:25 Dose: 1 cap Documented by: Losartan Potassium (Losartan 50 Mg Tab) 100 mg PO DAILY@12 [facility] Last Admin: 06/18/21 13:01 Dose: 100 mg Documented by: Ondansetron HCl (Ondansetron 4 Mg Tab.Dis) 4 mg PO Q4H PRN PRN Reason: Nausea/Vomiting Ondansetron HCl (Ondansetron 4 Mg/2 Ml Sdv) 4 mg IVPUSH Q4H PRN PRN Reason: Nausea/Vomiting Potassium Chloride (Potassium Chloride 20 Meq Tab.Er) 40 meq PO TID [facility] Last Admin: 06/19/21 08:26 Dose: 40 meq Documented by: Sodium Chloride (Sodium Chloride 0.9% 10 Ml Syringe) 10 ml FLUSH ASDIRECTED PRN PRN Reason: Keep Vein Open Last Admin: 06/18/21 10:05 Dose: 10 ml Documented by: Discontinued Medications Atenolol (Atenolol 50 Mg Tab) 50 mg PO ONETIME ONE Stop: 06/16/21 13:57 Last Admin: 06/16/21 14:07 Dose: 50 mg Documented by: Furosemide (Furosemide 20 Mg/2 Ml Vial) 20 mg IVPUSH ONETIME ONE Stop: 06/17/21 06:55 Last Admin: 06/17/21 07:15 Dose: 20 mg Documented by: Hydralazine HCl (Hydralazine 10 Mg Tab) 10 mg PO NOW STA Stop: 06/16/21 13:57 Last Admin: 06/16/21 14:07 Dose: 10 mg Documented by: Hydrocortisone Sodium Succinate (Hydrocortisone Sodium Succinate 100 Mg/2 Ml Sdv) 100 mg IVPUSH ONETIME ONE Stop: 06/17/21 08:05 Last Admin: 06/17/21 08:46 Dose: 100 mg Documented by: Hydrocortisone Sodium Succinate (Hydrocortisone Sodium Succinate 100 Mg/2 Ml Sdv) 100 mg IVPUSH ONETIME ONE Stop: 06/19/21 11:23 Sodium Chloride (Normal Saline) 1,000 mls @ 500 mls/hr IV ASDIRECTED [facility] Stop: 06/16/21 13:29 Last Admin: 06/16/21 11:55 Dose: 500 mls/hr Documented by: Potassium Chloride/Dextrose/Sod Cl (D5 1/2 Ns W/ 40 Meq/L Kcl) 500 mls @ 120 mls/hr IV ASDIRECTED [facility] Last Admin: 06/16/21 11:55 Dose: 120 mls/hr Documented by: Sodium Chloride (Normal Saline) 1,000 mls @ 75 mls/hr IV ASDIRECTED [facility] Last Admin: 06/16/21 13:39 Dose: 999 mls/hr Documented by: Piperacillin Sod/Tazobactam (Sod 3.375 gm/ Sodium Chloride) 100 mls @ 200 mls/hr IV Q6H [facility] Last Admin: 06/16/21 15:00 Dose: 200 mls/hr Documented by: Piperacillin Sod/Tazobactam (Sod 3.375 gm/ Sodium Chloride) 100 mls @ 200 mls/hr IV Q6H [facility] Piperacillin Sod/Tazobactam (Sod 2.25 gm/ Sodium Chloride) 100 mls @ 200 mls/hr IV Q6H [facility] Piperacillin Sod/Tazobactam (Sod 2.25 gm/ Sodium Chloride) 100 mls @ 200 mls/hr IV Q6H [facility] Piperacillin Sod/Tazobactam (Sod 2.25 gm/ Sodium Chloride) 100 mls @ 200 mls/hr IV Q6H [facility] Last Admin: 06/17/21 03:08 Dose: Not Given Documented by: Piperacillin Sod/Tazobactam (Sod 2.25 gm/ Sodium Chloride) 100 mls @ 200 mls/hr IV Q6H [facility] Stop: 06/18/21 23:00 Last Admin: 06/18/21 21:09 Dose: 200 mls/hr Documented by: Sodium Chloride (Normal Saline) 500 mls @ 100 mls/hr IV ASDIRECTED [facility] Last Admin: 06/17/21 08:26 Dose: 100 mls/hr Documented by: Potassium Chloride 10 meq/ (Premix) 50 mls @ 50 mls/hr IV Q1H [facility] Stop: 06/17/21 11:59 Last Admin: 06/17/21 12:01 Dose: 50 mls/hr Documented by: Potassium Chloride 10 meq/ (Premix) 50 mls @ 50 mls/hr IV Q1H [facility] Stop: 06/18/21 11:59 Last Admin: 06/18/21 13:55 Dose: 50 mls/hr Documented by: Sodium Chloride (Normal Saline) 500 mls @ 100 mls/hr IV ASDIRECTED [facility] Last Admin: 06/18/21 09:49 Dose: 100 mls/hr Documented by: Iopamidol (Iopamidol 755 Mg/Ml 100 Ml Bottle) 100 ml IVPUSH ONETIME STA Stop: 06/16/21 12:30 Last Admin: 06/16/21 13:05 Dose: 100 ml Documented by: Losartan Potassium (Losartan 50 Mg Tab) 100 mg PO ONETIME ONE Stop: 06/16/21 13:57 Last Admin: 06/16/21 14:07 Dose: 100 mg Documented by: Pantoprazole Sodium (Pantoprazole 40 Mg Vial) 40 mg IV Q12HR [facility] Last Admin: 06/18/21 10:05 Dose: 40 mg Documented by: Potassium Bicarbonate (Potassium Bicarbonate/Cit Ac 20 Meq Effervescent Tab) 40 meq PO ONETIME ONE Stop: 06/17/21 07:38 Last Admin: 06/17/21 08:41 Dose: 40 meq Documented by: Potassium Bicarbonate (Potassium Bicarbonate/Cit Ac 20 Meq Effervescent Tab) 40 meq PO TID [facility] Stop: 06/20/21 08:01 Last Admin: 06/18/21 13:01 Dose: 40 meq Documented by:
[2021-06-19] MEDS: Losartan 50 MG Tab PO SCH (11:46)
[2021-06-19] MEDS: Atenolol 50 MG Tab PO SCH (11:46)
[2021-06-19 11:47] VITALS: BP 139/59; PULSE 64
[2021-06-19] MEDS: Sodium Chloride 0.9% 10 ML Syringe FLUSH PRN (11:47)
== END 2021-06-19 13:15 | DRG 871 ==
LOC: LL.ED 11:11 → LL.MS 15:00
PROVIDERS: ADMIT Physician Assistant; ATTEND Physician Assistant
DX: A41.9 Sepsis, unspecified organism (principal); R09.02 Hypoxemia; R53.1 Weakness; R41.82 Altered mental status, unspecified; J96.01 Acute respiratory failure with hypoxia; R79.89 Other specified abnormal findings of blood chemistry; I50.43 Acute on chronic combined systolic (congestive) and diastolic (congestive) heart failure; I11.0 Hypertensive heart disease with heart failure; E87.6 Hypokalemia; I15.1 Hypertension secondary to other renal disorders; H91.90 Unspecified hearing loss, unspecified ear; N28.89 Other specified disorders of kidney and ureter; K57.90 Diverticulosis of intestine, part unspecified, without perforation or abscess without bleeding; H54.7 Unspecified visual loss; H35.30 Unspecified macular degeneration; G43.909 Migraine, unspecified, not intractable, without status migrainosus; K59.09 Other constipation; Z20.822 Contact with and (suspected) exposure to COVID-19; G89.29 Other chronic pain; M19.90 Unspecified osteoarthritis, unspecified site; M81.0 Age-related osteoporosis without current pathological fracture; Z79.899 Other long term (current) drug therapy; Z87.440 Personal history of urinary (tract) infections; Z98.49 Cataract extraction status, unspecified eye; Z90.710 Acquired absence of both cervix and uterus; Z98.890 Other specified postprocedural states
CPT/HCPCS: 36415; 36600; 51702; 70450; 71045; 71275; 74177; 80048; 81001; 82140; 82533; 82803; 83605; 83690; 83735; 83880; 84145; 84443; 84484; 85025; 85379; 86140; 87040; 93005; 93010; 96365; 96366; 97162-GP; 97530-GP; 99223; 99232; 99233; 99239; 99285-25; A9270-GY; C9113; J1650; J1720; J1940; J2543; J3480; J7030; J7040; Q9967; U0002

== ENCOUNTER 2022-03-10 13:43 | Inpatient (IN) | payer MEDICARE, OTHER ==
[2022-03-10 14:22] LABS: ANION GAP 10.9 meq/L (7-15)
[2022-03-10] MEDS ORDERED: Sodium Chloride 0.9% 1,000 ML IV SCH (15:30)
[2022-03-10] MEDS ORDERED: Acetaminophen 325 MG Tab PO PRN (15:31)
[2022-03-10] MEDS: cefTRIAXone 1 GM in Sodium Chloride 0.9% 100 ML IV SCH (16:33)
[2022-03-10] MEDS: Sodium Chloride 0.9% 10 ML Syringe FLUSH PRN (16:34)
[2022-03-10] MEDS: Polyvinyl Alcohol 1.4% Ophth Soln 15 ML Bottle EYEBOTH SCH (19:40)
[2022-03-10] MEDS: Albuterol/Ipratropium 3.0-0.5 MG/3 ML Neb Soln INH SCH (19:40)
[2022-03-10] MEDS: Mirtazapine 15 MG Tab PO SCH (19:41)
[2022-03-10] MEDS: hydrALAZINE 10 MG Tab PO SCH (19:41)
[2022-03-10] MEDS: Atenolol 50 MG Tab PO SCH (19:42)
[2022-03-11] MEDS: Enoxaparin 30 MG/0.3 ML Syringe SUBCUT SCH (07:54)
[2022-03-11] MEDS: Polyvinyl Alcohol 1.4% Ophth Soln 15 ML Bottle EYEBOTH SCH ×2 (07:54→19:54)
[2022-03-11] MEDS: Albuterol/Ipratropium 3.0-0.5 MG/3 ML Neb Soln INH SCH ×3 (07:55→19:54)
[2022-03-11] MEDS: Furosemide 20 MG Tab PO SCH (07:55)
[2022-03-11] MEDS: Levothyroxine 25 MCG Tab PO SCH (07:55)
[2022-03-11] MEDS: Atenolol 50 MG Tab PO SCH ×2 (07:55→19:48)
[2022-03-11] MEDS: Carbidopa/Levodopa 25-100 MG Tab PO SCH ×2 (07:55→14:43)
[2022-03-11] MEDS: hydrALAZINE 10 MG Tab PO SCH ×3 (08:01→19:56)
[2022-03-11 08:51] LABS: ANION GAP 11.9 meq/L (7-15); CHLORIDE,CL 105 mmol/L (98-107); SODIUM,NA 140 mmol/L (136-145)
[2022-03-11] MEDS: Losartan 50 MG Tab PO SCH (12:33)
[2022-03-11] MEDS: Docusate Sodium 100 MG Cap PO SCH (12:33)
[2022-03-11] MEDS: cefTRIAXone 1 GM in Sodium Chloride 0.9% 100 ML IV SCH (16:07)
[2022-03-11] MEDS: Sodium Chloride 0.9% 10 ML Syringe FLUSH PRN (16:08)
[2022-03-11] MEDS ORDERED: Sodium Chloride 0.9% 10 ML Syringe FLUSH PRN (16:09)
[2022-03-11] MEDS: Mirtazapine 15 MG Tab PO SCH (19:48)
[2022-03-12] MEDS: Atenolol 50 MG Tab PO SCH (08:41)
[2022-03-12] MEDS: Enoxaparin 30 MG/0.3 ML Syringe SUBCUT SCH (08:41)
[2022-03-12] MEDS: Albuterol/Ipratropium 3.0-0.5 MG/3 ML Neb Soln INH SCH ×2 (08:41→12:14)
[2022-03-12] MEDS: Polyvinyl Alcohol 1.4% Ophth Soln 15 ML Bottle EYEBOTH SCH (08:41)
[2022-03-12] MEDS: Levothyroxine 25 MCG Tab PO SCH (08:42)
[2022-03-12] MEDS: Carbidopa/Levodopa 25-100 MG Tab PO SCH ×2 (08:42→13:53)
[2022-03-12] MEDS: hydrALAZINE 10 MG Tab PO SCH ×2 (08:42→13:52)
[2022-03-12] MEDS: Furosemide 20 MG Tab PO SCH (08:42)
[2022-03-12] MEDS: Losartan 50 MG Tab PO SCH (12:10)
[2022-03-12] MEDS: Docusate Sodium 100 MG Cap PO SCH (12:14)
[2022-03-12] MEDS: cefTRIAXone 1 GM in Sodium Chloride 0.9% 100 ML IV SCH (12:14)
== END 2022-03-12 15:40 | disposition home or self-care (01) | DRG 690 ==
LOC: LL.ED 13:43 → LL.MS 14:45
PROVIDERS: ADMIT Nurse Practitioner Family; ATTEND Nurse Practitioner Family
DX: N30.00 Acute cystitis without hematuria (principal); G93.49 Other encephalopathy; I50.9 Heart failure, unspecified; R41.0 Disorientation, unspecified; R68.89 Other general symptoms and signs; R53.1 Weakness; H91.90 Unspecified hearing loss, unspecified ear; H35.30 Unspecified macular degeneration; I11.0 Hypertensive heart disease with heart failure; K59.09 Other constipation; K57.90 Diverticulosis of intestine, part unspecified, without perforation or abscess without bleeding; M19.90 Unspecified osteoarthritis, unspecified site; M81.0 Age-related osteoporosis without current pathological fracture; Z87.440 Personal history of urinary (tract) infections; E87.1 Hypo-osmolality and hyponatremia; G89.29 Other chronic pain; M25.569 Pain in unspecified knee; G43.909 Migraine, unspecified, not intractable, without status migrainosus; E86.0 Dehydration; B99.9 Unspecified infectious disease; Z98.49 Cataract extraction status, unspecified eye; Z79.899 Other long term (current) drug therapy; Z90.710 Acquired absence of both cervix and uterus
CPT/HCPCS: 36415; 80053; 81001; 85025; 87086; 94640; 97163-GP; 99223; 99233; 99239; 99284; A9270-GY; J0696; J1650; J3490; J7030; J7620-GY